=== PATIENT | male | born 1960 | race Caucasian/White ===

== ENCOUNTER 2023-12-29 07:11 | Day surgery (SDC) | payer BC, SELFPAY ==
[2023-12-29] VITALS (7 sets, daily range): BP systolic 125–151; BP diastolic 70–92; PULSE 70–84; RESP 12–20; TEMP 36.1–36.6; O2SAT 95–100; BMI 39.2
--- OUTSIDE RECORDS SUMMARY | 2023-12-29 07:14 | XMS_ITS | Encounter Summary ---
Author Organization [facility] Address [address] [place] [address] Care Team Providers Care Psychology Department Chair Name Role Phone Unavailable Primary Care Provider Unavailabl e Encounter Details Date Type Department Care Team (Late st Contact Info) Description 11/29/2023 Clinical Communication Department of Radiation Oncology in [place], [place] [address] [place] [phone] Des Dillard M.D. [address] [place] [address] Social History Tobacco Use Types Packs/Day Years Used Date Smoking Tobacco: Never Smokeless Tobacco: Former Chew Quit: 2013 Alcohol Use Standard Drinks/Week Comments Not Currently 21 (1 standard drink = 0.6 oz pu re alcohol) [facility] Utilities Answer Date Recorded In the past 12 months has [employer], [employer], oil, or water [employer] threatened to shut off services in your home? No 06/06/2023 Social Connection and Isolation Panel [NHANES] A nswer Date Recorded In a typical week, how many times do you talk on the phone with family, friends, or neighbors? Three times a week 11/01/2019 How often do you get togethe r with friends or relatives? Never 11/01/2019 How often do you attend chur ch or advent services? Never 11/01/2019 Do you belong to any clubs o r organizations such as sikh groups, unions, fraternal or athletic groups, or school groups? No 11/01/2019 How often do you attend meet ings of the clubs or organizations you belong to? Never 11/01/2019 Are you , , di vorced, , never , or living with a partner? 11/01/2019 AUDIT-C Answer Date Recorded Q1: How often do you have a drink containing alcohol? 4 or more times a week 11/01/2019 Q2: How many drinks containi ng alcohol do you have on a typical day when you are drinking? 3 or 4 0 Q3: How often do you have si x or more drinks on one occasion? Monthly 11/01/2019 Overall Financial Resource Strain (CARDIA) Answe r Date Recorded How hard is it for you to pa y for the very basics like food, housing, medical care, and heating? Not hard at all 11/01/2019 [facility] of Occupat ional Health - Occupational Stress Questionnaire Answer Date Recorded Do you feel stress - tense, restless, nervous, or anxious, or unable to sleep at night because your mind is troubled all the time - these days? To some extent 11/01/2019 Exercise Vital Sign Answer Date Recorde d On average, how many days pe r week do you engage in moderate to strenuous exercise (like a brisk walk)? 1 day 06/06/2023 On average, how many minutes do you engage in exercise at this level? 10 min 06/06/2023 Hunger Vital Sign Answer Date Recorded Within the past 12 months, y ou worried that your food would run out before you got the money to buy more. Never true 06/06/19 24 Within the past 12 months, t he food you bought just didn't last and you didn't have money to get more. Never true 06/06/2023 PRAPARE - Transportation Answer Date Re corded In the past 12 months, has l ack of transportation kept you from medical appointments or from getting medications? No 05/11 In the past 12 months, has l ack of transportation kept you from meetings, work, or from getting things needed for daily living? No 06/06/2023 Nutrition Answer Date Recorded On average, how many serving s of fruits and vegetables do you eat per day (serving size is equal to 1 cup or approximately the size of a tennis ball)? 0-2 06/06/2023 Dental Answer Date Recorded Dental: Regular Dentist Yes 06/06/19 Employment Answer Date Recorded Employment status Employed and actively working without restrictions 06/06/2023 Housing Stability Answer Date Recorded What is your living situation today? I have a [facility] place to live 06/06/2023 Education Answer Date Recorded What is the highest level of school you have completed or the highest degree you have received? 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 [address] [place] [address] documented as of this encounter Visit Diagnoses Not on filedocumented in this encounter
--- OUTSIDE RECORDS SUMMARY | 2023-12-29 07:14 | XMS_ITS | Encounter Summary ---
Author Organization [facility] Address [address] [place] [address] Care Team Providers Care Medical Device Engineer Name Role Phone Unavailable Primary Care Provider Unavailabl e Encounter Details Date Type Department Care Team (Late st Contact Info) Description 09/09/2023 Documentation Department of Radiation Oncology in [place], [place] [address] [place] [phone] Des Dillard M.D. [address] [place] [address] Social History Tobacco Use Types Packs/Day Years Used Date Smoking Tobacco: Never Smokeless Tobacco: Former Chew Quit: 2013 Alcohol Use Standard Drinks/Week Comments Not Currently 21 (1 standard drink = 0.6 oz pu re alcohol) [facility] Utilities Answer Date Recorded In the past 12 months has [employer], [employer], oil, or water [employer] threatened to shut off services in your [...] often do you attend chur ch or taoist services? Never 11/01/2019 Do you belong to any clubs o r organizations such as yazdanism groups, unions, fraternal or athletic groups, or [...] and heating? Not hard at all 11/01/2019 [facility] [place] of Occupat ional Health - Occupational Stress [...] your living situation today? I have a [facility] [place] place to live 06/06/2023 Education Answer Date Recorded What is the highest level of school you have completed or the highest degree you have received? 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 - 09/09/2023 11:59 PM CDT DIAGNOSIS: 1. Primary Malignant Neoplasm Of Prostate (HCC) Attending Physician: Des Dillard M.D. ([id number]) Treatment Intent: Curative Concomitant Therapy: Hormonal Therapy Single Plan Treatment Course: 1xProstBed Plan ID Fractions Dose / Fraction (cGy) Dose Treated (cGy) Dose Planned (cGy) First Treatment Last Treatment Elapsed Days [id number] 07/28/2023 08/31/2023 34 [id number] 215 [id number] 09/01/2023 09/09/2023 8 Treatment Site Summary [id number] 07/28/2023 09/09/2023 43 Course Summary 07/28/2023 09/09/2023 43 Radiation Modality: Photons CLINICAL SUMMARY Mr. Manny Ortiz completed radiation treatment as planned without interruptions. The course of treatment was tolerated well and with anticipated side effects. The patient experienced toxicities of grade 1 diarrhea, proctitis, urinary frequency and urinary tract pain during radiation treatment. TREATMENT RESPONSE: Response to treatment will be determined by post-treatment imaging and/or laboratory work. RECOMMENDED FOLLOW UP: Radiation Oncologist. Dr. Dillard Signed by: Sruthi Verde R.N., 09/23/2023 3:12 PM CDT [facility] [address] [place] [id number] documented in this encounter Plan of Treatment Upcoming Encounters Date Type Department Care Team (Latest Contact Info) Description 02/10/2024 10:30 AM CDT Clinical Communication Virtual Review in [place], [place] [address] [place] [address] 02/14/2024 2:30 PM CDT Appointment Department of Radiation Oncology in [address] [address] Des Dillard M.D. [address] [place] [phone] documented as of this encounter Visit Diagnoses Diagnosis Primary Malignant Neoplasm Of Prostate (HCC)- Primary documented in this encounter
--- OUTSIDE RECORDS SUMMARY | 2023-12-29 07:14 | XMS_ITS | Clinical Summary ---
Author Organization [facility] Address [place], [place] [address] Care Team Providers Care Centralized Traffic Control Operator Name Role Phone Atiya Lewis Primary Care Provider Pamela Murrell RN Unavailable [phone] Luciano Ni Unavailable [phone] Issa Goodwin MD Unavailable Unavailable Allergies No known active allergies Medications Medication Sig Dispensed Refills Start Date End Date Status Omeprazole 20 mg tabletIndications: Gastroesophageal reflux disease, esophagitis presence not specified Take 1 tablet by mouth once daily. 90 tablet 1 6 Active Graduated Compression StockingsIndicatio ns:Venous insufficiency 20-30 mm/Hg calf high or thigh high compression stockings - Venous insufficiency 8 Packet 2 Active Graduated Compression StockingsIndicatio ns:Bilateral leg edema For personal use. Length: calf Strength: 20-30 mmHg 2 Packet 2 Active valACYclovir (VALTREX) 500 mg tabletIndications: HSV-2 (herpes simplex virus 2) infection Take 1 Tablet (500 mg) by mouth two times daily. Takes as needed 30 Tablet 1 3 Active benzonatate (TESSALON) 200 mg capsuleIndications :Cough, unspecified type Take 1 Capsule (200 mg) by mouth 3 times daily if needed for Cough. 21 Capsule 3 Active tadalafiL (CIALIS;ADCIRCA) 20 mg tabletIndications: Impotence of organic origin TAKE 1/2 TABLET ONCE DAILY IF NEEDED FOR ERECTILE DYSFUNCTION. TAKE 30 MINUTES BEFORE SEXUAL ACTIVITY 24 Tablet 2 4 Active gabapentin (NEURONTIN) 300 mg capsuleIndications :Sacroiliac joint disease Take 1 Capsule (300 mg) by mouth at bedtime. 90 Capsule 4 Active losartan (COZAAR) 100 mg tabletIndications: Elevated BP without diagnosis of hypertension TAKE 1 TABLET ONCE DAILY 90 Tablet 4 Active amLODIPine (NORVASC) 10 mg tabletIndications: Essential hypertension Take 1 Tablet (10 mg) by mouth once daily. 90 Tablet 2 4 Active venlafaxine (EFFEXOR XR) 150 mg Extended-Release capsuleIndications :Adjustment disorder, unspecified type TAKE 2 CAPSULES ONCE DAILY WITH A MEAL 180 Capsule 1 4 Active CPAPIndications:OS A (obstructive sleep apnea) RESMED CPAP (E0601) machine for home use at pressure: 11 cmw, Choice of mask (A7030 or A7034) w/full face cushion (A7031) x1/mo, nasal cushion (A7032) x2/mo, or nasal pillows (A7033) x 2/mo; Length of Need: 99 months; Frequency of use: Daily 1 Each 4 Active CPAPIndications:OS A (obstructive sleep apnea) CPAP machine for home use at pressure 5-16 cmw, nasal mask x1/3month with nasal cushion x2/mo 1 Device 1 12/23/19 24 Discontinu ed(*Med complete/R egimen complete/L evel of care change) CPAPIndications:OS A (obstructive sleep apnea) CPAP machine for home use at pressure: 5-16 cmw , Heated humidifier x 1 q 5 yr, Humidifier chamber x 1 q 6 mo, Full face mask x1 q 3mos, with cushion x 1 q mo, Heated tubing x 1 q 3 mo, Headgear x 1 q 6 mo, Filters: Disposable x 2 q mo non-disposable filters x1 q 6mo, Length of Need: 99 months, Frequency of use: Daily 1 Device 1 12/23/19 24 Discontinu ed(*Med complete/R egimen complete/L evel of care change) Active Problems Problem Noted Date Diagnosed Date Alcoholism 12/06/2023 KORY 04/12/2018 AHI-52 with hypoxemia 04/25/2018 Unspecified adjustment reaction 06/21/2014 Adenomatous colon polyp 06/13/2014 Overview: Colonoscopy 06/2014 polyps repeat in 5 years Colonoscopy 02/2022 normal, repeat in 7-10 years Prostate cancer 12/25/2013 S/P prostatectomy 12/25/2013 Elevated BP 05/16/2008 Encounters Date Type Department Care Team Description 12/28/2023 Telephone [facility] [address] [place] [address] Isma Colón MD 12/28/2023 Medical Messaging [facility] [place] [address] Atiya Lewis PA My Back 12/23/2023 2:30 PM CDT Office Visit [facility] [place] [address] Alberto Solano MD Sleep Follow-up 12/23/2023 Travel 12/16/2023 2:15 PM CDT Ancillary Procedure [facility] [address] [facility] [address] [place] [address] 12/16/2023 Travel 12/06/2023 3:00 PM CDT Ancillary Procedure [facility] [place] [address] 12/06/2023 1:00 PM CDT Office Visit [facility] [place] [address] Atiya Lewis PA Pain (Pain all over, mostly in joints and hips into L leg. / worse in the past few months); Finger Pain/problem (Trigger finger in both ring fingers); Medication Management (Antidepressants - ) 12/06/2023 Travel 11/29/2023 Orders Only [facility] [place] [address] Atiya Lewis PA Outside Order (Ordered by Dr. Des Dillard) 11/07/2023 Refill [facility] [place] [address] Atiya Lewis PA Refill Request (Venlafaxine) 10/25/2023 Refill [facility] [address] [facility] [place] [address] Atiya Lewis PA Refill Request (Amlodipine) 10/12/2023 Refill [facility] [address] [facility] [place] [address] Atiya Lewis PA Refill Request (Losartan) from Last 3 Months Immunizations Name Administration Dates Next Due COVID-19 vaccine (Comecer-Bio NTech 30mcg/0.3mL) 12YO+ BIVALENT PF, MDV 02/13/2022 COVID-19 vaccine (Comecer-Bio NTech 30mcg/0.3mL) PF, MDV 04/21/2021,08/30/2020,08/13/2020 Hepatitis A (Adult) 01/19/1998,06/06/1997 Hepatitis B (Adult) 04/09/2010,09/07/2009,2009 Influenza A (H1N1), Inactiva fatou (Age >=3 Years) 05/18/2009 Influenza Virus, Unspecified 02/20/2007, 06/14/2006,07/11/2005,05/23 Influenza, IIV4 04/14/2023,,02/15/2021,01/17,04/02/2020,01/31/2019,02/15/2018 ,01/28/2017,02/12/2016,03/25/2015 Influenza, Whole Virus 10/14/2002,2000,04/14/1999,03/25,06/06/1997 MMR 09/08/1997 Meningococcal Vaccine (Menactra) 03/10/2008 Meningococcal Vaccine (Menomune) 08/22/1997 Oral Polio Vaccine 10/08/1984 Td (Age >=7 Years) 11/18/1996 Tdap 04/20/2016,05/21/2007 Typhoid (injectable) 09/25/2016,11/17/19 12,11/16/2009,08/12,07/11/2005 Typhoid Parenteral,Killed 08/19/2000,08/22/1997 Varicella Vaccine 09/07/2009,05/18/2009 Yellow Fever 03/10/2008,03/12/1997 Zoster (Shingrix-RZV, recombinant) 09/07/2022, Family History Medical History Relation Name Comments Cancer Father skin cancer Hyperlipidemia Father Hypertension Father Other Maternal Grandfather lived u ntil 90's Other Maternal Grandmother lived u ntil 90's Hypertension Mother Stroke Mother Hypertension Paternal Grandfather Hypertension Paternal Grandmother Other Paternal Grandmother lived u ntil 90's Relation Name Status Comments Father Maternal Grandfather Maternal Grandmother Mother Paternal Grandfather Paternal Grandmother Social History Tobacco Use Types Packs/Day Years Used Date Smoking Tobacco: Never Cigarettes Smokeless Tobacco: Former Chew Quit: 08/25/2011 Tobacco Cessation:Counseling Given: Yes Comments:1 tin weekly Alcohol Use Standard Drinks/Week Comments Yes 0 (1 standard drink = 0.6 oz pur e alcohol) occ PHQ-2 Answer Date Recorded PHQ-2 TOTAL SCORE 2 04/02/2020 Social Connections Answer Date Recorded Frequency of Communication with Friends and Fami ly 0 02/22/2023 Financial Resource Strain Answer Date R ecorded Difficulty of Paying Living Expenses 3 02/22/2023 Difficulty of Paying Living Expenses Not on file 02/22/2023 Food Insecurity Answer Date Recorded Worried About Running Out of Food in the Last Ye ar 1 02/22/2023 Transportation Needs Answer Date Record ed Lack of Transportation (Medical) 1 02/22/2023 Housing Stability Answer Date Recorded Unable to Pay for Housing in the Last Year 1 02/22/2023 Sex and Gender Information Value Date Recorded Sex Assigned at Not on file Gender Identity Not on file Sexual Orientation Not on file Obstetrics History Last Filed Vital Signs Vital Sign Reading Time Taken Comments Blood Pressure 121/82 12/23/2023 2:32 PM CDT Pulse 94 12/23/2023 2:32 PM CDT Temperature 37.1 ??C (98.7 ??F) 05/05/2023 2:14 PM CS T Respiratory Rate 17 04/08/2020 4:30 PM FIELD SERVICE ANALYST Oxygen Saturation 97% 12/23/2023 2:32 PM CDT Inhaled Oxygen Concentration - - Weight 123.6 kg (272 lb 6.4 oz) 12/23/2023 2:32 PM CDT Height 177 cm (5' 9.69) 12/23/2023 2:32 PM CDT Body Mass Index 39.43 12/23/2023 2:32 PM CDT Plan of Treatment Upcoming Encounters Date Type Department Care Team (Late st Contact Info) Description 01/17/2024 11:45 AM CDT Office Visit [facility] [address] [place] [address] [place], [facility] [address] [place] [address] 01/17/2024 3:30 PM CDT Ancillary Procedure [facility] [address] [place] [address] 01/21/2024 2:00 PM CDT Ancillary Procedure [facility] [address] [place] [address] 01/28/2024 11:20 AM CDT Office Visit [facility] at [facility] [address] [place] [address] Isma Colón MD [address] [place] [address] 03/29/2024 1:00 PM FIELD SERVICE ANALYST Office Visit [facility] [address] [place] [address] Alberto Solano MD [address] [place] [address] Health Maintenance Due Date Last Done Comments Pneumococcal series for age 6-64 (1 of 2 - PCV) 1966 HIV for age 15-65 10/31/1975 Hepatitis C screening for ag e 18-79 1978 Depression screening for age 12+ 04/03/2021 04/03/2020, 04/02/2020, 02/02/2019, Additional history exists COVID-19 vaccine series (2022- season) 2023 03/15/2023, 02/13/2022, 10/10/2021, Additional history exists Influenza for age 50-64 01/09/2024 04/14/20 23, 02/13/2022, 02/15/2021, Additional history exists BMI (ht and wt on same day) for age 18+ 12/22/2024 12/23/2023, 09/07/2022, 03/12/2021, Additional history exists Tetanus booster 04/20/2026 04/20/2016, 05/10, 11/18/1996 Colonoscopy through age 75 02/13/202702/13, 02/13/2022, 02/13/2022, Additional history exists Lipids for age 45-75 09/03/2027 09/02/2022, 03/11/2021, 04/02/2020, Additional history exists Tdap Completed 04/20/2016, 05/21/2007 Zoster (shingles) series for age 50+ Completed 09/07/2022, 03/15/2019 Procedures Procedure Name Priority Date/Time Associated Diagnosis Comments MR SPINE LUMBAR WO Routine 12/16/2023 2: 40 PM CDT Left leg pain XR SPINE LUMBAR 2 VIEWS Routine 12/06/2023 2:58 PM CDT Left leg pain LC LIPID PANEL AND CHOL/HDL RATIO Routine 09/02/2022 3:55 PM CDT Elevated BP without diagnosis of hypertension COLONOSCOPY SCREENING Routine 02/13/2022 10:43 AM CDT History of colon polyps from Last 3 Months or Most Recently Relevant to Health Maintenance Results * MR SPINE LUMBAR WO (12/16/2023 2:40 PM CDT) Anatomical Region Laterality Modality Spine, LUMBAR SPINE Magnetic Res onance 12/16/2023 3:01 PM CDT Narrative 12/16/2023 3:01 PM CDT For Patients: ??As a result of the Century Cures Act, medical imaging exams and procedure reports are released immediately into your electronic medical record. ??You may view this report before your referring provider. ??If you have questions, please contact your health care provider. Indication: Low back and left leg pain. Technique: Multisequence multiplanar MRI of the lumbar spine without the use of intravenous contrast. Comparison: Lumbar spine radiographs dated 12/06/2023. Findings: Normal vertebral alignment and stature. Diffuse T1 marrow hyperintensity within the lower lumbar spine and sacrum suggestive of posttreatment changes. No T1 hypointense infiltrative lesion. Multilevel disc desiccation and height loss most pronounced at L2-L3. Mild edema about a Schmorl`s node at the L3 superior endplate. The conus medullaris terminates normally at the upper L1 level. Epidural lipomatosis contributes to spinal canal stenosis at multiple levels. T12-L1 and L1-L2: No significant spinal canal or neural foraminal stenosis. L2-L3: Symmetric disc bulge. Mild facet joint hypertrophy. Mild spinal canal stenosis. No significant neural foraminal narrowing. L3-L4: Symmetric disc bulge. Mild facet joint arthrosis. Mild-moderate spinal canal stenosis. Mild right and mild-moderate left neural foraminal narrowing. L4-L5: Symmetric disc bulge. Moderate facet joint hypertrophy. Moderate spinal canal stenosis and moderate bilateral neural foraminal narrowing. L5-S1: Symmetric disc bulge. Mild facet joint hypertrophy. No significant spinal canal or neural foraminal stenosis. Impression: 1. Diffuse T1 marrow hyperintensity within the lower lumbar spine and sacrum suggestive of posttreatment changes. 2. Mild edema about a Schmorl`s node at the L3 superior endplate. 3. Epidural lipomatosis contributes to spinal canal stenosis at multiple levels. 4. At L2-L3, mild spinal canal stenosis. 5. At L3-L4, mild-moderate spinal canal stenosis and left neural foraminal narrowing. 6. At L4-L5, moderate spinal canal stenosis and bilateral neural foraminal narrowing. Dictated by Danielito Hickman MD @ 12/16/2023 3:01:05 PM (Electronically Signed) Procedure Note Jose G Hickman MD - 12/16/2023 For Patients: As a result of the Cures Act, medical imagingexams and procedure reports are released immediately into your electronicmedical record. You may view this report before your referring provider.If you have questions, please contact your health care provider. Indication: Low back and left leg pain. Technique: Multisequence multiplanar MRI of the lumbar spine without the use ofintravenous contrast. Comparison: Lumbar spine radiographs dated 12/06/2023. Findings: Normal vertebral alignment and stature. Diffuse T1 marrow hyperintensitywithin the lower lumbar spine and sacrum suggestive of posttreatmentchanges. No T1 hypointense infiltrative lesion. Multilevel discdesiccation and height loss most pronounced at L2-L3. Mild edema about aSchmorl`s node at the L3 superior endplate. The conus medullaristerminates normally at the upper L1 level. Epidural lipomatosiscontributes to spinal canal stenosis at multiple levels. T12-L1 and L1-L2: No significant spinal canal or neural foraminalstenosis. L2-L3: Symmetric disc bulge. Mild facet joint hypertrophy. Mild spinalcanal stenosis. No significant neural foraminal narrowing. L3-L4: Symmetric disc bulge. Mild facet joint arthrosis. Mild-moderatespinal canal stenosis. Mild right and mild-moderate left neural foraminalnarrowing. L4-L5: Symmetric disc bulge. Moderate facet joint hypertrophy. Moderatespinal canal stenosis and moderate bilateral neural foraminal narrowing. L5-S1: Symmetric disc bulge. Mild facet joint hypertrophy. No significantspinal canal or neural foraminal stenosis. Impression: 1. Diffuse T1 marrow hyperintensity within the lower lumbar spine andsacrum suggestive of posttreatment changes. 2. Mild edema about a Schmorl`s node at the L3 superior endplate. 3. Epidural lipomatosis contributes to spinal canal stenosis at multiplelevels. 4. At L2-L3, mild spinal canal stenosis. 5. At L3-L4, mild-moderate spinal canal stenosis and left neural foraminalnarrowing. 6. At L4-L5, moderate spinal canal stenosis and bilateral neural foraminalnarrowing. Dictated by Danielito Hickman MD @ 12/16/2023 3:01:05 PM (Electronically Signed) Atiya JARQUIN MR * XR SPINE LUMBAR 2 VIEWS (12/06/2023 2:58 PM CDT) Anatomical Region Laterality Modality LUMBAR SPINE Computed Radiogr aphy 12/07/2023 3:08 PM CDT Impressions 12/07/2023 3:08 PM CDT Mild multilevel degenerative disc disease. Dictated by Pradeep Rodarte MD @ 12/07/2023 3:08:43 PM (Electronically Signed) Narrative 12/07/2023 3:08 PM CDT For Patients: ??As a result of the Cures Act, medical imaging exams and procedure reports are released immediately into your electronic medical record. ??You may view this report before your referring provider. ??If you have questions, please contact your health care provider. INDICATION: Left leg pain TECHNIQUE: 2-view lumbar spine. COMPARISON: none FINDINGS: Discogenic spurring L2-3 and L3-4. Mild spurring L4-5 and mild disc space narrowing L2-3. No fracture. SI joints maintained. No spondylolisthesis. Procedure Note Pradeep Rodarte MD - 12/07/2023 For Patients: As a result of the Cures Act, medical imagingexams and procedure reports are released immediately into your electronicmedical record. You may view this report before your referring provider.If you have questions, please contact your health care provider. INDICATION: Left leg pain TECHNIQUE: 2-view lumbar spine. COMPARISON: none FINDINGS: Discogenic spurring L2-3 and L3-4. Mild spurring L4-5 and mild disc spacenarrowing L2-3. No fracture. SI joints maintained. No spondylolisthesis. IMPRESSION: Mild multilevel degenerative disc disease. Dictated by Pradeep Rodarte MD @ 12/07/2023 3:08:43 PM (Electronically Signed) Atiya JARQUIN [facility] * (ABNORMAL) LC LIPID PANEL AND CHOL/HDL RATIO (09/02/2022 3:55 PM CDT) Cholesterol, Total 210(H) 100 - 199 mg/dL 09/05/2022 8:36 AM [facility] Triglycerides 150(H) 0 - 149 mg/dL 09/05/2022 8:[address] [facility] ([facility]) HDL Cholesterol 55 >39 mg/dL 8:[address] [facility] ([facility]) VLDL Cholesterol Philipp 27 5 - 40 mg/dL 09/05/2022 8:[address] [facility] ([facility]) LDL Chol Calc ([facility]) 128(H) 0 - 99 mg/dL 09/05/2022 8:[address] [facility] ([facility]) T. Chol/HDL Ratio 3.8 0.0 - 5.0 ratio 09/05/2022 8:[address] [facility] ([facility]) Comment: ?T. Chol/HDL Ratio ?Men ??Women ?1/2 Avg.Risk ??3.4 ?3.3 ?Avg.Risk ??5.0 ?4.4 ? 2X Avg.Risk ??9.6 ?7.1 ? 3X Avg.Risk 23.4 ?? 11.0 Blood BLOOD SPECIMEN / Unknown Venipuncture / Unknown 09/02/2022 3:55 PM CDT 09/02/2022 3:56 PM CDT Narrative [facility] ([facility]) - 09/05/2022 8:36 AM CDT Performed at: ??01 - [facility] [facility], [place], [place] ??[id number] Indirect Fire Infantryman: Manoj Laura MD, Phone: ??[phone] Atiya JARQUIN S[facility] OUTS [facility] ([facility]) [address] [place] [address], [place] * COLONOSCOPY (02/13/2022 11:30 AM CDT) 02/13/2022 11:3 0 AM CDT Narrative Transcriptions Benjy Ford MD - 02/13/2022 12:12 PM CDT Patient Name: Manny Ortiz Procedure Date: 02/13/2022 Gender: Male Date of : 1960 Admit Type: Outpatient Procedure: Colonoscopy Proceduralist: Benjy Ford MD , Linda Hopper (Nurse), Quynh Jenkins (Nurse) Referring MD: Atiya Lewis Indications/Pre-Op Diagnosis: High risk colon cancer surveillance:Personal history of multiple (3 or more) adenomas,Last colonoscopy: June 2014 Medications: Fentanyl 100 micrograms IV, Midazolam 4 mgIV, The level of sedation administered wasmoderate Procedure Description: The patient had risks, benefits and alternatives explained to andgave informed consent. The patient had a stable cardiopulmonary status and judged an adequate candidate for conscious sedation. The endoscope -[id number] was passed through the anus andadvanced to the cecum, identified by appendiceal orifice and ileocecal valve.The colonoscopy was performed without difficulty. The patient toleratedthe procedure well. The quality of the bowel preparation was good. The ileocecal valve, appendiceal orifice, and rectum were photographed. Complications: No immediate complications. Estimated Blood Loss & Specimen: Estimated blood loss: none. Specimen collected - None Findings: The perianal and digital rectal examinations were normal. The entire examined colon appeared normal on direct and retroflexion views. Impressions/Post-Op Diagnosis: - The entire examined colon is normal on direct and retroflexionviews. - No specimens collected. Recommendation: - Patient has a contact number available for emergencies. The signsand symptoms of potential delayed complications were discussed with the patient. Return to normal activities tomorrow. Written discharge instructions were provided to the patient. - Resume previous diet. - Continue present medications. - Repeat colonoscopy in 7-10 years for surveillance. Moderate Sedation: A time out was performed before the procedure. Moderate (conscious) sedation was administered by the endoscopy nurse and supervised bythe endoscopist. The following parameters were monitored: oxygensaturation, heart rate, blood pressure, EKG, CO2, respiratory rate, adequacy of pulmonary ventilation and reponse to care. Please refer to the patient's medical record flowsheets and nursing notes for moderate sedation details. Total physician intraservice time was 14 minutes. Benjy Ford MD 02/13/2022 12:12:06 PM This report has been signed electronically. Note Initiated On: 02/13/2022 11:30 AM Procedure Code(s): --- Professional --- 72024, Colonoscopy, flexible; diagnostic, including collection of specimen(s) bybrushing or washing, when performed (separateprocedure) Diagnosis Code(s): --- Professional --- Z86.010, Personal history of colonicpolyps CPT copyright 2020 [employer]. All rights reserved. The codes documented in this report are preliminary and upon remote medical coder reviewmay be revised to meet current compliance requirements. Scope In: 11:54:28 AM Scope Withdrawal Time 0 hours 8 minutes 14 seconds Scope Out: 12:06:37 PM Benjy Ford MD PROCEDURE ORD from Last 3 Months or Most Recently Relevant to Health Maintenance Advance Directives * Full Code (Latest Code Status on File) Date Activated Date Inactivated Comments 04/08/2020 12:39 PM 04/08/2020 7:00 PM Question Answer Comments Code Status Discussion: Discussed * Full Code Date Activated Date Inactivated Comments 12/18/2013 1:53 PM 12/20/2013 3:24 PM Care Teams Centralized Traffic Control Operator Relationship Specialty Start Date End Date Atiya Lewis PA [address] [place] [id number] PCP - General Family Practice 06/20/13 Pamela Murrell, RN [address] [place] [id number] Registered Nurse 12/08/13 Luciano Ni MBBS [address] [place] [id number] Surgery - Urology 12/08/13 Issa Goodwin MD [address] [place] [id number] Urology Surgery - Urology 03/15/19
--- OUTSIDE RECORDS SUMMARY | 2023-12-29 07:14 | XMS_ITS | Clinical Summary ---
Author Organization [facility] Address [address] [place] [address] Care Team Providers Care Clothing Presser Name Role Phone Unavailable Primary Care Provider Unavailabl e Source Comments Patient records contain information from all sites at [facility]. For routine questions regarding patient records, call [phone] during business hours, M-F 8:00 AM - 5:00 PM Central Time. Record requests for emergency care only can be directed to [phone] at any time.[facility] Allergies No known active allergies Medications Medication Sig Dispensed Refills Start Date End Date Status amLODIPine (NORVASC) 10 mg tablet Take 1 tablet by mouth every morning. 04/08/2017 Active losartan (COZAAR) 100 mg tablet Take 1 tablet by mouth every morning. 04/08/2017 Active valACYclovir (VALTREX) 500 mg tablet Take 500 mg by mouth. 04/14/2023 Active tadalafiL (CIALIS) 20 mg tablet TAKE 1/2 TABLET ONCE DAILY IF NEEDED FOR ERECTILE DYSFUNCTION TAKE 30 MINUTESBEFORE SEXUAL ACTIVITY 09/07/2022 Active venlafaxine XR (EFFEXOR-XR) 150 mg 24 hr capsule Take 300 mg by mouth. 09/07/2022 Active sildenafiL (VIAGRA) 100 mg tablet One tab 1 hour before intercourse on an empty stomach. Max one tab per day. OK to take with 5 mg daily tadalafil. 30 tablet 11 07/02/2023 Active mometasone (ELOCON) 0.1 % cream Apply 1 Application topically daily. Apply to lower anterior abdominal skin twice daily for 7-10 days. 45 g 1 09/01/2023 Active Active Problems Problem Noted Date Diagnosed Date Hyperglycemia 10/04/2018 Rising Prostate Specific Ant igen Following Treatment For Malignant Cancer Of Prostate 09/08/2018 Overview (09/08/2018): Added automatically from request for surgery [id number] Primary Malignant Neoplasm Of Prostate 7 Cancer Staging:Pathologic stage from 12/18/2013:Stage IIB(T2c, N0, cM0, PSA: 10 to 19, [place] 7) - Unsigned Apnea Sleep Obstructive Overview (10/04/2018): Compliant with CPAP use Hypertension NOS Thromboembolism NOS Overview (10/04/2018): Left, superficial Gastroesophageal Reflux Disease NOS Resolved Problems Problem Noted Date Diagnosed Date Resolved Date Alcohol Mild Use Disorder (A buse) Uncomplicated 10/04/2018 10/04/2018 Encounters Date Type Department Care Team Description 12/13/2023 Clinical Communication Department of Radiation Oncology in [address] [address] Des Dillard M.D. 11/29/2023 Clinical Communication Department of Radiation Oncology in [address] [address] Des Dillard M.D. from Last 3 Months Family History Medical History Relation Name Comments Cancer Neg Hx Social History Tobacco Use Types Packs/Day Years Used Date Smoking Tobacco: Never Smokeless Tobacco: Former Chew Quit: 2013 Tobacco Cessation:Counseling Given: Not Answered Alcohol Use Standard Drinks/Week Comments Not Currently 21 (1 standard drink = 0.6 oz pu re alcohol) [facility] Utilities Answer Date Recorded In the past 12 months has [employer], gas, oil, or water [employer] threatened to shut off services in your home? No 06/06/2023 Social Connection and Isolation Panel [NHANES] A nswer Date Recorded In a typical week, how many times do you talk on the phone with family, friends, or neighbors? Three times a week 11/01/2019 How often do you get togethe r with friends or relatives? Never 11/01/2019 How often do you attend [facility] or baptist services? Never 11/01/2019 Do you belong to any clubs o r organizations such as mormonism groups, unions, fraternal or athletic groups, or [...] and heating? Not hard at all 11/01/2019 [facility] of Occupat ional Health - Occupational Stress [...] your living situation today? I have a [facility] place to live 06/06/2023 Education Answer Date Recorded What is the highest level of school you have completed or the highest degree you have received? Bachelor's degree (e.g., BA, AB, BS) 11/01/2019 Sex and Gender Information Value Date Recorded Sex Assigned at Male 06/06/2023 10:42 PM GOVERNMENT CONTRACTS MANAGER Gender Identity Male 11/01/2019 10:26 PM CDT Sexual Orientation Straight 11/01/2019 10 :26 PM CDT Last Filed Vital Signs Vital Sign Reading Time Taken Comments Blood Pressure 120/80 08/18/2023 2:17 PM CDT Pulse 91 08/18/2023 2:17 PM CDT Temperature 35.7 ??C (96.3 ??F) 09/09/2023 1:56 PM CD T Respiratory Rate 19 10/05/2018 1:10 PM CDT Oxygen Saturation 96% 06/15/2023 3:02 PM GOVERNMENT CONTRACTS MANAGER Inhaled Oxygen Concentration - - Weight 125 kg (275 lb 9.2 oz) 09/09/2023 1:56 PM CDT Height 178.2 cm (5' 10.16) 10/04/2018 2:08 PM C DT Body Mass Index 39.36 10/04/2018 2:08 PM CDT Plan of Treatment Upcoming Encounters Date Type Department Care Team (Latest Contact Info) Description 02/10/2024 10:30 AM CDT Clinical Communication Virtual Review in [place], [place] [address] [place] [address] 02/14/2024 2:30 PM CDT Appointment Department of Radiation Oncology in [place], [place] [address] [place] [phone] Des Dillard M.D. [address] [place] [address] Health Maintenance Due Date Last Done Comments CT Colonography 1960 Cologuard 1960 FIT 1960 HIV Screening 1960 Hepatitis C Screening 1960 Office Visit for Blood Pressure Check / Re-check 1960 Pneumococcal vaccine (0-64 years) (1 of 2 - PCV) 1966 Depression Screening (Annual PHQ-2) 05/10/2023 Influenza Vaccine (#1) 2024 , 02/13/2022, 02/15/2021, Additional history exists Creatinine Level (Kidney Function Test) 04/14/2024 04/14/2023, 09/02/2022, 10/29/2021, Additional history exists Fasting Glucose for Diabetes Screening 04/14/2024 04/14/2023, 09/02/2022, 03/11/2021, Additional history exists Potassium Level 04/14/2024 04/14/2023, 08/09, 03/11/2021, Additional history exists Sodium Level 04/14/2024 04/14/2023, 08/09, 03/11/2021, Additional history exists Lipid (Cholesterol) Screening 06/30/2024 06/30/2023, 09/02/2022, 03/11/2021, Additional history exists DTaP,Tdap,and Td Vaccines (3 - Td or Tdap) 04/20/2026 04/20/2016, 05/21/2007 Colonoscopy 02/14/2032 02/13/2022 Colorectal Cancer Screening 02/14/2032 Zoster Vaccines Completed 09/09/2022, 03/15/2019 COVID-19 Vaccine Completed 03/15/2023, 11/2021, 10/10/2021, Additional history exists HPV Vaccines Aged Out No longer eligi ble based on patient's age to complete this topic Medical Devices Implanted Type Area Duty Manager Device Identifier Shelf Expiration Date Model / Serial / Lot Knee Implant Knee Implant Bilateral : Knee Procedures Procedure Name Priority Date/Time Associated Diagnosis Comments LIPID PANEL, S Routine 06/30/2023 9:40 AM GOVERNMENT CONTRACTS MANAGER Primary Malignant Neoplasm Of Prostate (HCC) Rising Prostate Specific Antigen Following Treatment For Malignant Cancer Of Prostate HEMOGLOBIN A1C, B Routine 10/04/2018 3:0 9 PM CDT Elevated Prostate-Specific Antigen Preanesthetic Medical Exam Impaired Fasting Glucose POTASSIUM, S/P Routine 10/04/2018 3:08 PM CDT Elevated Prostate-Specific Antigen Preanesthetic Medical Exam Impaired Fasting Glucose CREATININE WITH EGFR, S/P Routine 10/04/2018 3:08 PM CDT Elevated Prostate-Specific Antigen Preanesthetic Medical Exam Impaired Fasting Glucose from Last 3 Months or Most Recently Relevant to Health Maintenance Results * (ABNORMAL) Lipid Panel (06/30/2023 9:40 AM GOVERNMENT CONTRACTS MANAGER) Triglycerides 201(H) mg/dL 06/30/2023 10:30 AM GOVERNMENT CONTRACTS MANAGER DTL Comment: ----REFERENCE VALUE---- Normal: <150 mg/dL Borderline High: 150-199 mg/dL High: 200-499 mg/dL Very High: > or =500 mg/dL Cholesterol, Total 208(H) mg/dL 2023 10:30 AM GOVERNMENT CONTRACTS MANAGER DTL Comment: ----REFERENCE VALUE---- Desirable: < 200 mg/dL Borderline High: 200 - 239 mg/dL High: > or = 240 mg/dL Cholesterol, LDL, Calculated 126 mg/dL 06/30/2023 10:30 AM GOVERNMENT CONTRACTS MANAGER DTL Comment: ----REFERENCE VALUE---- Desirable: <100 mg/dL Above Desirable: 100-129 mg/dL Borderline High: 130-159 mg/dL High: 160-189 mg/dL Very High: >=190 mg/dL ----ADDITIONAL INFORMATION---- LDL cholesterol calculated using the León/NIH equation. Cholesterol, HDL, S 46 >=40 mg/dL 06/30/2023 10:30 AM GOVERNMENT CONTRACTS MANAGER DTL Cholesterol, Non-HDL, Calculated 162(H) mg/dL 06/30/2023 10:30 AM GOVERNMENT CONTRACTS MANAGER DTL Comment: ----REFERENCE VALUE---- Desirable: <130 mg/dL Above Desirable: 130-159 mg/dL Borderline High: 160-189 mg/dL High: 190-219 mg/dL Very High: > or =220 mg/dL Fasting (8 HR or more) Yes 06/30/2023 10:05 AM GOVERNMENT CONTRACTS MANAGER DTL Blood (Blood, Venous) 06/30/2023 9:40 AM GOVERNMENT CONTRACTS MANAGER 06/30/2023 10:05 AM GOVERNMENT CONTRACTS MANAGER Issa Vazquez M.D. LAB BLOOD ADD-ON [facility] [address] [facility] [address] [place] [address] * Hemoglobin A1c (10/04/2018 3:09 PM CDT) Hemoglobin A1c, B 5.4 4.0 - 5.6 % 10/04/2018 3:35 PM CDT [facility] Blood (Blood, Venous) 10/04/2018 3:09 PM CDT 10/04/2018 3:17 PM CDT Honorio Luna M.D. LAB BLOOD ADD-ON Performing Organization Address City/[facility]/ZIP Co de Phone Number [facility] [address] * Potassium (10/04/2018 3:08 PM CDT) Potassium, S 4.6 3.6 - 5.2 mmol/L 10/04/2018 4:18 PM CDT [facility] Blood (Blood, Venous) 10/04/2018 3:08 PM CDT 10/04/2018 3:16 PM CDT Honorio Luna M.D. LAB BLOOD ADD-ON [facility] [address] * Creatinine with Estimated GFR (10/04/2018 3:08 PM CDT) Creatinine 0.76 0.74 - 1.35 mg/dL 10/04/2018 4:18 PM CDT [facility] eGFR-Non Black/ >90 >=60 mL/min/BSA 10/04/2018 4:18 PM CDT [facility] Comment: ----ADDITIONAL INFORMATION---- Estimated GFR calculated using the 2009 CKD_EPI creatinine equation. eGFR-Black/Afri can Ghanaian >90 >=60 mL/min/BSA 10/04/2018 4:18 PM CDT [facility] Comment: ----ADDITIONAL INFORMATION---- Estimated GFR calculated using the 2009 CKD_EPI creatinine equation. Blood (Blood, Venous) 10/04/2018 3:08 PM CDT 10/04/2018 3:16 PM CDT Honorio Luna M.D. LAB BLOOD ADD-ON [facility] [address] from Last 3 Months or Most Recently Relevant to Health Maintenance Advance Directives For more information, please contact: [phone] * Full Code (Latest Code Status on File) Date Activated Date Inactivated Comments 10/05/2018 10:14 AM 10/05/2018 3:34 PM Question Answer Comments Full Code: Discussed
--- OUTSIDE RECORDS SUMMARY | 2023-12-29 07:14 | XMS_ITS ---
Author Organization [facility] Address [address] [place] [address] Care Team Providers Care Turn Out Worker Name Role Phone Unavailable Unavailable Unavailable Surgery Details Not on file Complications Check Surgery Details section. Procedure Estimated Blood Loss Check Surgery Details section. Procedure Findings Check Surgery Details section. Procedure Specimens Taken Check Surgery Details section.
--- OUTSIDE RECORDS SUMMARY | 2023-12-29 07:14 | XMS_ITS | Referral Summary ---
Author Organization [facility] Address [address] [place] [address] Care Team Providers Care Torsion Spring Coiling Machine Setter Name Role Phone Unavailable Primary Care Provider Unavailabl e Source Comments Patient records contain information from all sites at [facility]. For routine questions regarding patient records, call [phone] during business hours, M-F 8:00 AM - 5:00 PM Central Time. Record requests for emergency care only can be directed to [phone] at any time.[facility] Encounters Date Type Department Care Team Description 12/13/2023 Clinical Communication Department of Radiation Oncology in [address] [address] Des Dillard M.D. 11/29/2023 Clinical Communication Department of Radiation Oncology in [address] [address] Des Dillard M.D. from Last 3 Months Allergies No known active allergies Medications Medication [...] (09/08/2018): Added automatically from request for surgery [id number] Primary Malignant Neoplasm Of Prostate 7 Cancer Staging:Pathologic stage from 12/18/2013:Stage IIB(T2c, N0, cM0, PSA: 10 to 19, [place] 7) - Unsigned Apnea Sleep Obstructive Overview (10/04/2018): Compliant with CPAP use Hypertension NOS Thromboembolism NOS Overview (10/04/2018): Left, superficial Gastroesophageal Reflux Disease NOS Resolved Problems Problem Noted Date Diagnosed Date Resolved Date Alcohol Mild Use Disorder (A buse) Uncomplicated 10/04/2018 10/04/2018 Social History Tobacco Use Types Packs/Day Years Used Date Smoking Tobacco: Never Smokeless Tobacco: Former Chew Quit: 2013 Tobacco Cessation:Counseling Given: Not Answered Alcohol Use Standard Drinks/Week Comments Not Currently 21 (1 standard drink = 0.6 oz pu re alcohol) [facility] Utilities Answer Date Recorded In the past 12 months has [employer], [employer], oil, or water [employer] threatened to shut off services in your home? No 06/06/2023 Social Connection and Isolation Panel [NHANES] A nswer Date Recorded In a typical week, how many times do you talk on the phone with family, friends, or neighbors? Three times a week 11/01/2019 How often do you get togethe r with friends or relatives? Never 11/01/2019 How often do you attend [facility] or anabaptism services? Never 11/01/2019 Do you belong to any clubs o r organizations such as anglican groups, unions, fraternal or athletic groups, or [...] and heating? Not hard at all 11/01/2019 [facility] of Occupat ional [facility] - Occupational Stress Questionnaire Answer Date Recorded [...] your living situation today? I have a [facility] place to live 06/06/2023 Education Answer Date Recorded What is the highest level of school you have completed or the highest degree you have received? Bachelor's degree (e.g., BA, AB, BS) 11/01/2019 Sex and Gender Information Value Date Recorded Sex Assigned at Male 06/06/2023 10:42 PM DIRECTOR OF DIGITAL TECHNOLOGY Gender Identity Male 11/01/2019 10:26 PM CDT Sexual Orientation Straight 11/01/2019 10 :26 PM CDT Last Filed Vital Signs Vital Sign Reading Time Taken Comments Blood Pressure 120/80 08/18/2023 2:17 PM CDT Pulse 91 08/18/2023 2:17 PM CDT Temperature 35.7 ??C (96.3 ??F) 09/09/2023 1:56 PM CD T Respiratory Rate 19 10/05/2018 1:10 PM CDT Oxygen Saturation 96% 06/15/2023 3:02 PM DIRECTOR OF DIGITAL TECHNOLOGY Inhaled Oxygen Concentration - - Weight 125 kg (275 lb 9.2 oz) 09/09/2023 1:56 PM CDT Height 178.2 cm (5' 10.16) 10/04/2018 2:08 PM C DT Body Mass Index 39.36 10/04/2018 2:08 PM CDT Plan of Treatment Upcoming Encounters Date Type Department Care Team (Latest Contact Info) Description 02/10/2024 10:30 AM CDT Clinical Communication Virtual Review in [place], [place] [address] [place] [address] 02/14/2024 2:30 PM CDT Appointment Department of Radiation Oncology in [place], [place] [address] [place] [phone] Des Dillard M.D. [address] [place] [address] Medical Devices Implanted Type Area Supervisor Coke Handling Device Identifier Shelf Expiration Date Model / Serial / Lot Knee Implant Knee Implant Bilateral : Knee Procedures Procedure Name Priority Date/Time Associated Diagnosis Comments LIPID PANEL, S Routine 06/30/2023 9:40 AM DIRECTOR OF DIGITAL TECHNOLOGY Primary Malignant Neoplasm Of Prostate (HCC) Rising [...] * (ABNORMAL) Lipid Panel (06/30/2023 9:40 AM DIRECTOR OF DIGITAL TECHNOLOGY) Triglycerides 201(H) mg/dL 06/30/2023 10:30 AM DIRECTOR OF DIGITAL TECHNOLOGY DTL Comment: ----REFERENCE VALUE---- Normal: <150 mg/dL Borderline High: 150-199 mg/dL High: 200-499 mg/dL Very High: > or =500 mg/dL Cholesterol, Total 208(H) mg/dL 2023 10:30 AM DIRECTOR OF DIGITAL TECHNOLOGY DTL Comment: ----REFERENCE VALUE---- Desirable: < 200 mg/dL Borderline High: 200 - 239 mg/dL High: > or = 240 mg/dL Cholesterol, LDL, Calculated 126 mg/dL 06/30/2023 10:30 AM DIRECTOR OF DIGITAL TECHNOLOGY DTL Comment: ----REFERENCE VALUE---- Desirable: <100 mg/dL Above Desirable: 100-129 mg/dL Borderline High: 130-159 mg/dL High: 160-189 mg/dL Very High: >=190 mg/dL ----ADDITIONAL INFORMATION---- LDL cholesterol calculated using the León/NIH equation. Cholesterol, HDL, S 46 >=40 mg/dL 06/30/2023 10:30 AM DIRECTOR OF DIGITAL TECHNOLOGY DTL Cholesterol, Non-HDL, Calculated 162(H) mg/dL 06/30/2023 10:30 AM DIRECTOR OF DIGITAL TECHNOLOGY DTL Comment: ----REFERENCE VALUE---- Desirable: <130 mg/dL Above Desirable: 130-159 mg/dL Borderline High: 160-189 mg/dL High: 190-219 mg/dL Very High: > or =220 mg/dL Fasting (8 HR or more) Yes 06/30/2023 10:05 AM DIRECTOR OF DIGITAL TECHNOLOGY DTL Blood (Blood, Venous) 06/30/2023 9:40 AM DIRECTOR OF DIGITAL TECHNOLOGY 06/30/2023 10:05 AM DIRECTOR OF DIGITAL TECHNOLOGY Issa Vazquez M.D. LAB BLOOD ADD-ON Performing Organization Address City/[facility]/ZIP Co de Phone Number [facility] [address] DTL [facility] [address] [place] [address] * Hemoglobin A1c (10/04/2018 3:09 PM CDT) Hemoglobin A1c, B 5.4 4.0 - 5.6 % 10/04/2018 3:35 PM CDT [facility] Blood (Blood, Venous) 10/04/2018 3:09 PM CDT 10/04/2018 3:17 PM CDT Honorio Luna M.D. LAB BLOOD ADD-ON Performing Organization Address City/[facility]/ZIP Co de Phone Number [facility] [address] * Potassium (10/04/2018 3:08 PM CDT) Potassium, S 4.6 3.6 - 5.2 mmol/L 10/04/2018 4:18 PM CDT [facility] Blood (Blood, Venous) 10/04/2018 3:08 PM CDT 10/04/2018 3:16 PM CDT Honorio M Bierle M.D. LAB BLOOD ADD-ON [facility] [address] [place], [place] [address] * Creatinine with Estimated GFR (10/04/2018 3:08 PM CDT) Creatinine 0.76 0.74 - 1.35 mg/dL 10/04/2018 4:18 PM CDT [facility] eGFR-Non Black/ >90 >=60 mL/min/BSA 10/04/2018 4:18 PM CDT [facility] Comment: ----ADDITIONAL INFORMATION---- Estimated GFR calculated using the 2009 CKD_EPI creatinine equation. eGFR-Black/Afri can Burmese >90 >=60 mL/min/BSA 10/04/2018 4:18 PM CDT [facility] Comment: ----ADDITIONAL INFORMATION---- Estimated GFR calculated using the 2009 CKD_EPI creatinine equation. Blood (Blood, Venous) 10/04/2018 3:08 PM CDT 10/04/2018 3:16 PM CDT Honorio Luna M.D. LAB BLOOD ADD-ON [facility] [address] [place], [place] [address] from Last 3 Months or Most Recently Relevant to Health Maintenance Advance Directives For more information, please contact: [phone] * Full Code (Latest Code Status on File) Date Activated Date Inactivated Comments 10/05/2018 10:14 AM 10/05/2018 3:34 PM Question Answer Comments Full Code: Discussed
--- OUTSIDE RECORDS SUMMARY | 2023-12-29 07:14 | XMS_ITS ---
Author Organization [facility] Address [address] [place] [address] Care Team Providers Care District Branch Manager Name Role Phone Unavailable Primary Care Provider Unavailabl e Active Problems Problem Noted Date Diagnosed Date Hyperglycemia 10/04/2018 Rising Prostate Specific Ant igen Following Treatment For Malignant Cancer Of Prostate 09/08/2018 Overview (09/08/2018): Added automatically from request for surgery [id number] Primary Malignant Neoplasm Of Prostate 7 Cancer Staging:Pathologic stage from 12/18/2013:Stage IIB(T2c, N0, cM0, PSA: 10 to 19, [place] 7) - Unsigned Apnea Sleep Obstructive Overview (10/04/2018): Compliant with CPAP use Hypertension NOS Thromboembolism NOS Overview (10/04/2018): Left, superficial Gastroesophageal Reflux Disease NOS Current Oncology Plans Leuprolide Acetate Every 16 Weeks* Plan Start Date:07/02/2023 Plan Provider:Issa Vazquez M.D. Linked Problems Primary Malignant Neoplasm O f Prostate (HCC)Rising Prostate Specific Antigen Following Treatment For Malignant Cancer Of Prostate Treatment Medications No medications scheduled. Past Plans No past plan information found. Radiation Treatments * Plan Last Treated On Elapsed Days Fractions Treated Prescribed Fraction Dose Prescribed Total Dose [id number] 09/09/2023 43 7 of 7 215 cGy 1,505 cGy [id number] 08/31/2023 34 25 of 25 215 cGy 5,375 cGy Reference Point Last Treated On Elapsed Days Session Dose Total Dose [id number] 09/09/2023 43 215 cGy 6,880 cGy Resolved Problems Problem Noted Date Diagnosed Date Resolved Date Alcohol Mild Use Disorder (Jami zacarias) Uncomplicated 10/04/2018 10/04/2018
--- OUTSIDE RECORDS SUMMARY | 2023-12-29 07:14 | XMS_ITS | Encounter Summary ---
Author Organization [facility] Address [address] [place] [address] Care Team Providers Care Top Spotter Name Role Phone Unavailable Primary Care Provider Unavailabl e Encounter Details Date Type Department Care Team (Late st Contact Info) Description 12/13/2023 Clinical Communication Department of Radiation Oncology in [place], [place] [address] [place] [address] Des Dillard M.D. [address] [place] [address] Social History Tobacco Use Types Packs/Day Years Used Date Smoking Tobacco: Never Smokeless Tobacco: Former Chew Quit: 2013 Alcohol Use Standard Drinks/Week Comments Not Currently 21 (1 standard drink = 0.6 oz pu re alcohol) [facility] Utilities Answer Date Recorded In the past 12 months has [employer], [employer], oil, or water [employer] threatened to shut off services in your [...] often do you attend chur ch or uatsdin services? Never 11/01/2019 Do you belong to [...] and heating? Not hard at all 11/01/2019 [facility] of Occupat ional Health - Occupational Stress [...] your living situation today? I have a [facility] place to live 06/06/2023 Education Answer Date Recorded What is the highest level of school you have completed or the highest degree you have received? Bachelor's degree (e.g., BA, AB, BS) 11/01/2019 Sex and Gender Information Value Date Recorded Sex Assigned at Male 06/06/2023 10:42 PM UTILIZATION MANAGEMENT MANAGER Gender Identity Male 11/01/2019 10:26 PM CDT Sexual Orientation Straight 11/01/2019 10 :26 PM CDT documented as of this encounter Miscellaneous Notes * Telephone Encounter - Adrian Funk - 12/13/2023 1:50 PM CDT Other Reason for Call Caller: Hussain Relationships to patient: Self Reason for call: Patient called to share that the disability company his employer uses contacted him requesting an update on his health. He is requesting that we fax the following information to [employer], Attn: Staci Crouch . Recent office note, current medical status, medical limitations, current medications. Hussain said he can be contacted with any questions. documented in this encounter Plan of Treatment Upcoming Encounters Date Type Department Care Team (Latest Contact Info) Description 02/10/2024 10:30 AM CDT Clinical Communication Virtual Review in [place], [place] [address] [place] [address] 02/14/2024 2:30 PM CDT Appointment Department of Radiation Oncology in [place], [place] [address] [place] [phone] Des Dillard M.D. [address] [place] [address] documented as of this encounter Visit Diagnoses Not on filedocumented in this encounter
--- OUTSIDE RECORDS SUMMARY | 2023-12-29 07:15 | XMS_ITS | Continuity of Care Document ---
Author Name [facility] Organization [facility] Care Team Providers Care Mri Technician Name Role Phone [facility] Unavailable Unavailable Problems Combined list of problems from Department of Defense and Veterans Affairs facilities. It does not include entries that were removed or entered in error. Problem Status Onset Date Problem Type Date of Resolution Comments Source midback pain Active Condition DoD lumbago Inactive Condition DoD visit for: administrative purpose Inactive Condition DoD visit for: screening exam Inactive Condition DoD hypertension systemic Active Condition DoD toe sprain Inactive Condition DoD visit for: issue medical certificate Inactive Condition DoD contusion with intact skin surface - right index finger Inactive Condition Pt with crush uinjury to right index finger two weeks ago, Now will new swelling in injured finger. did not demonstrate any S/S of infection. Offered an x-ray pt did not want one. If worsens or does not imrpove, pt to call and will d/w Ortho. DoD upper respiratory infection Inactive Condition inactive flyerno dnifHigh BP may be related to his current URI. 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 DoD Allergies, Adverse Reactions, Alerts Combined list of allergies from Department of Defense and Veterans Affairs facilities. It does not include entries that were removed or entered in error. Substance Category Reaction Severity Reaction type Status Date Reported Comments Source No Known Allergies Drug allergy (disorder) active 07/12/2007 [facility] Immunizations Combined list of available immunizations from the Department of Defense and Veterans Affairs facilities. Immunization Series Date Given Administered By Site Reaction Lot Number CVX Code Drug Medical Records Administrator Status Comments Source Influenza, seasonal, injectable, preservative free 15 2011 Unknown, Provider [id number] [employer] (CSL) complet ed Influenza , seasonal, injectabl e, preservat essence free DoD typhoid Vi capsular polysaccharid e vaccine 6 2011 Unknown, Provider [id number] Sanofi Pasteur ([facility]) complet ed typhoid Vi capsular polysacch aride vaccine DoD Influenza, seasonal, injectable, preservative free 1 2010 Unknown, Provider [id number] 140 Sanofi Pasteur ([facility]) complet ed Influenza , seasonal, injectabl e, preservat essence free DoD influenza virus vaccine, split virus (incl. purified surface antigen)-reti red CODE 1 2009 Unknown, Provider [id number] 15 Sanofi Pasteur ([facility]) complet ed influenza virus vaccine, split virus (incl. purified surface antigen)- retired CODE DoD hepatitis B vaccine, adult dosage 3 2009 Unknown, Provider [id number], adult dosage DoD typhoid Vi capsular polysaccharid e vaccine 1 2009 Unknown, Provider [id number] 101 Sanofi Pasteur ([facility]) complet ed typhoid Vi capsular polysacch aride vaccine DoD varicella virus vaccine 2 2009 Unknown, Provider [id number] Merck (MSD) complet ed varicella virus vaccine DoD hepatitis B vaccine, adult dosage 2 2009 Unknown, Provider [id number] [facility] B vaccine, adult dosage DoD varicella virus vaccine 1 2009 Unknown, Provider [id number] Merck (MSD) complet ed varicella virus vaccine DoD hepatitis B vaccine, adult dosage 1 2009 Unknown, Provider [id number] 43 [facility] hepatitis B vaccine, adult dosage DoD Novel influenza-H1N 1-09, injectable 1 2009 Unknown, Provider [id number] 127 [employer] (NOV) complet ed Novel influenza -H2G4-17, injectabl e DoD influenza virus vaccine, split virus (incl. purified surface antigen)-reti red CODE 1 2008 Unknown, Provider [id number] 15 [employer] (CSL) complet ed influenza virus vaccine, split virus (incl. purified surface antigen)- retired CODE DoD influenza virus vaccine, split virus (incl. purified surface antigen)-reti red CODE 1 2007 Unknown, Provider [id number] 15 [employer] (CSL) complet ed influenza virus vaccine, split virus (incl. purified surface antigen)- retired CODE DoD yellow fever vaccine 1 2007 Unknown, Provider [id number] 37 Sanofi Pasteur ([facility]) complet ed yellow fever vaccine DoD meningococcal polysaccharid e (groups A, C, Y and W-135) diphtheria toxoid conjugate vaccine (MCV4P) 1 2007 Unknown, Provider [id number] 114 [facility] ([facility]) complet ed meningoco ccal polysacch aride (groups A, C, Y and W-135) diphtheri a toxoid conjugate vaccine (MCV4P) DoD typhoid Vi capsular polysaccharid e vaccine 1 2007 Unknown, Provider [id number] [facility] ([facility]) complet ed typhoid Vi capsular polysacch aride vaccine DoD tetanus toxoid, reduced diphtheria toxoid, and acellular pertu is vaccine, adsorbed 1 2007 [id number] 115 Sanofi Pasteur ([facility]) complet ed tetanus toxoid, reduced diphtheri a toxoid, and acellular pertussis vaccine, adsorbed DoD influenza virus vaccine, split virus (incl. purified surface antigen)-reti red CODE 1 2006 [id number] () complet ed influenza virus vaccine, split virus (incl. purified surface antigen)- retired CODE DoD influenza virus vaccine, split virus (incl. purified surface antigen)-reti red CODE 1 2006 [id number] 15 Sanofi Pasteur ([facility]) complet ed influenza virus vaccine, split virus (incl. purified surface antigen)- retired CODE DoD tuberculin skin test; purified protein derivative solution, intradermal 1 2006 Unknown, Provider [id number] Other (OTH) complet ed tuberculi n skin test; purified protein derivativ e solution, intraderm al DoD influenza virus vaccine, split virus (incl. purified surface antigen)-reti red CODE 1 2005 [id number] 15 Sanofi Pasteur ([facility]) complet ed influenza virus vaccine, split virus (incl. purified surface antigen)- retired CODE DoD typhoid Vi capsular polysaccharid e vaccine 1 2005 [id number] [facility] ([facility]) complet ed typhoid Vi capsular polysacch aride vaccine DoD influenza virus vaccine, live, attenuated, for intranasal use 0 2004 [id number] [employer] (MED) complet ed influenza virus vaccine, live, attenuate d, for intranasa l use DoD influenza virus vaccine, split virus (incl. purified surface antigen)-reti red CODE 1 2002 Unknown, Provider [id number] 15 Jalen (SUSANNA) complet ed influenza virus vaccine, split virus (incl. purified surface antigen)- retired CODE DoD influenza virus vaccine, whole virus 0 2002 [id number] 16 Jalen (SUSANNA) complet ed influenza virus vaccine, whole virus DoD varicella virus vaccine 1 2002 21 () Not Given varicella virus vaccine DoD influenza virus vaccine, split virus (incl. purified surface antigen)-reti red CODE 1 2000 Unknown, Provider [id number] 15 Jalen (SUSANNA) complet ed influenza virus vaccine, split virus (incl. purified surface antigen)- retired CODE DoD influenza virus vaccine, whole virus 0 2000 [id number] 16 Jalen (SUSANNA) complet ed influenza virus vaccine, whole virus DoD typhoid vaccine, parenteral, other than acetone-kille d, dried 0 2000 [id number] Luis [employer]aught (CON) complet ed typhoid vaccine, parentera l, other than acetone-k illed, dried DoD influenza virus vaccine, split virus (incl. purified surface antigen)-reti red CODE 1 1998 Unknown, Provider [id number] 15 Yashirat (CON) complet ed influenza virus vaccine, split virus (incl. purified surface antigen)- retired CODE DoD influenza virus vaccine, whole virus 0 [id number] 16 [employer] (CON) complet ed influenza virus vaccine, whole virus DoD influenza virus vaccine, split virus (incl. purified surface antigen)-reti red CODE 1 1997 Unknown, Provider [id number] 15 Jalen (SUSANNA) complet ed influenza virus vaccine, split virus (incl. purified surface antigen)- retired CODE DoD influenza virus vaccine, whole virus 0 [id number] 16 Jalen (SUSANNA) complet ed influenza virus vaccine, whole virus DoD hepatitis A vaccine, adult dosage 2 1997 [id number] Merck (MSD) complet ed hepatitis A vaccine, adult dosage DoD measles, mumps and rubella virus vaccine 0 1997 [id number] Unknown (UNK) comple t ed measles, mumps and rubella virus vaccine DoD meningococcal polysaccharid e vaccine (MPSV4) 0 1997 [id number] Unknown (UNK) comple t ed meningoco ccal polysacch aride vaccine (MPSV4) DoD typhoid vaccine, parenteral, other than acetone-kille d, dried 0 1997 [id number] [place] (CON) complet ed typhoid vaccine, parentera l, other than acetone-k illed, dried DoD measles, mumps and rubella virus vaccine 0 1997 [id number] 03 Merck (MSD) complet ed measles, mumps and rubella virus vaccine DoD influenza virus vaccine, split virus (incl. purified surface antigen)-reti red CODE 1 1997 Unknown, Provider [id number] 15 [place] (CON) complet ed influenza virus vaccine, split virus (incl. purified surface antigen)- retired CODE DoD influenza virus vaccine, whole virus 0 1997 [id number] 16 [place] (CON) complet ed influenza virus vaccine, whole virus DoD hepatitis A vaccine, adult dosage 1 1997 [id number] 52 Merck (MSD) complet ed hepatitis A vaccine, adult dosage DoD yellow fever vaccine 0 1996 [id number] 37 Unknown (UNK) comple t ed yellow fever vaccine DoD tetanus and diphtheria toxoids, adsorbed, preservative free, for adult use (2 Lf of tetanus toxoid and 2 Lf of diphtheria toxoid) 0 1996 [id number] 09 Merck (MSD) complet ed tetanus and diphtheri a toxoids, adsorbed, preservat essence free, for adult use (2 Lf of tetanus toxoid and 2 Lf of diphtheri a toxoid) DoD trivalent poliovirus vaccine, live, oral 1 1984 02 (MV) complet ed trivalent polioviru s vaccine, live, oral DoD Encounters Combined list of: 1) Encounters from Department of Veterans Affairs facilities going back up to thelast 18 months. 2) Encounters from the Department of Defense facilities going back up to 280 months. Location Location Details Encounter Type Encounter Number Reason For Visit Attending Provider ADM Date DC Date Status Disposition Source [address] [place] [address] Medicine 0073) OUTPATIENT [id number] cut hand over weekend , needs RTFS PIERRE AYALA 02/01 Released w/o Limitations [employer]([facility] 0073) [facility] [facility] Medicine [facility]) OUTPATIENT [id number] annual fly pha NATTY GARDNER Nubia 07/12 Released w/o Limitations [facility] [facility] Medicine [facility]) [facility] [id number] [facility] IFEANYI Graham Porfirio 07/15 Released w/o Limitations [facility]) [employer]([place] [address]) OUTPATIENT [id number] infecti on on R finger PIERRE AYALA 01/19 Released w/o Limitations [employer] [facility] Medic[facility] 0073) [employer]([facility] Medicine [facility]) OUTPATIENT [id number] POLI DA SILVA 07/12 Released w/o Limitations [employer] [facility] Medicin e 0073) [employer]([facility] Medicine [facility]) OUTPATIENT [id number] Notes Entered by: Romulo LLOYD 19 Jun 2011 0752 ------- ------- ------- ------- -- RYAN Tran 06/19 Released w/o Limitations [employer] [facility] Medic[facility] e 0073) [employer]([facility] Medicine [facility]) OUTPATIENT [id number] RYAN TRIMBLE 11/16 Released w/o Limitations [employer] [facility] light Medicin e 0073) [employer] [facility](E[facility] Card Lab (Tech Only)) OUTPATIENT [id number] ekg/SONDRA Leiva 11/17 Released w/o Limitations [facility] [facility](E KG Card Lab (Tech Only)) [facility]) OUTPATIENT [id number] Notes Entered by: RALEIGH BARDALES 19 Nov 2011 0947 ------- ------- ------- ------- -- Walkin per FLAQUITO Woodruff 11/18 Released w/o Limitations [facility] [facility](C ardiolo gy Procedu re Clinic) [facility] [facility](EKG [facility] (Tech Only)) OUTPATIENT [id number] echo/bj ROXY Nunn 11/18 Released w/o Limitations [facility] [facility](E KG Card Lab (Tech Only)) [facility]) OUTPATIENT [id number] echo FLAQUITO Paul 11/18 Released w/o Limitations [facility] [facility](C ardiolo gy Procedu re Clinic) [facility] [facility](EKG Card Lab (Tech Only)) OUTPATIENT [id number] Notes Entered by: NIYA ANGELES 20 Nov 2011 0820 ------- ------- ------- ------- -- ekg/ko a SONDRA LAL 11/19 Released w/o Limitations [facility] [facility](E KG Card Lab (Tech Only)) [employer] [facility](Fli t Medicine 0073) OUTPATIENT [id number] RTFS RYAN JOSHI 12/09 Released w/o Limitations [employer] [facility](F light Medicin e 0073) [employer] [facility](Fli t Medicine 0073) TELE CONSULT [id number] Notes Entered by: GREER PORTILLO 16 Dec 2011 1744 ------- ------- ------- ------- -- Labs RYAN JOSHI 12/15 [employer] [facility](F light Medicin e 0073) [employer](Fli t Medicine 0073) OUTPATIENT [id number] [address] SHOAIB FLETCHER 01/31 Released w/o Limitations [employer] [facility](F light Medicin e 0073) [employer](Fli t Medicine 0073) OUTPATIENT [id number] Notes Entered by: STEVE HOWELL I 29 Feb 2012 0829 ------- ------- ------- ------- -- Back px RYAN JOSHI 02/28 Released w/o Limitations [facility](F light Medicin e 0073) [facility] Medicine 0073) TELE CONSULT [id number] Notes Entered by: GREER PORTILLO 11 Oct 2012 1533 ------- ------- ------- ------- -- Refill prescri ption meds RYAN JOSHI 10/11 [facility](F light Medicin e 0073) Procedures Combined list of: 1) Procedures from Department of Veterans Affairs facilities going back up to thelast 18 months, not all VA non-surgical procedures are included; 2) All procedures from the Department of Defense facilities. Procedure Procedure Type Code Date Perfomer Comments Sour e Electrocardiogram Electrocardiogram 27095 11/19 12 PlanGWRTraxerSONDRA DoD Echo Congenital Cardiac Defects Transthoracic W/ M-Mode, Spectral, & Color Flow Echo Congenital Cardiac Defects Transthoracic W/ M-Mode, Spectral, & Color Flow [id number] 11/19/19 12 ROXY RUBIO DoD Electrocardiogram Electrocardiogram 20753 11/17 12 [employer] SONDRA H DoD Social History Combined list of available smoking, tobacco, and other social history from Department of Defense and Veterans Affairs facilities. Social History Type Response Date Comment Sour e This section is an empty social history section. DoD
--- NOTE | 2023-12-29 08:09 | W.PM.H&PU ---
History & Physical Update History & Physical Update H&P Reviewed and patient assessed: No changes noted
--- NOTE | 2023-12-29 08:10 | PM.ORPRC ---
Procedure Note Date of procedure: 12/29/23 Procedure: PREOPERATIVE DIAGNOSIS: 1. Left ring finger trigger digit POSTOPERATIVE DIAGNOSIS: 1. Left ring finger trigger digit PROCEDURE: 1. Left ring finger trigger (A1 sparkle) release SURGEON: Hussain Drew MD. INDEPENDENT LIVING INSTRUCTOR: PEYTON Herrera. An marketing operations assistant was critical for this case to aid in patient positioning, tissue retraction, limb manipulation/positioning, and closure. ANESTHESIA: Local anesthetic IMPLANTS: None TOURNIQUET: 6 min at 200 mmHg ESTIMATED BLOOD LOSS: 0 mL COMPLICATIONS: None INDICATIONS: The patient is a pleasant 63-year-old male who has history of left ring finger pain and triggering. Symptoms did not improve with conservative management. Patient subsequently elected to proceed with surgical intervention consisting of left ring finger A1 sparkle release. Prior to surgery risks and benefits were discussed with patient all questions were answered informed consent was obtained. DESCRIPTION OF PROCEDURE: Patient was seen preoperatively and operative site was marked. Patient was then brought to the operating room placed in supine position on the OR table. A tourniquet was placed on the patient's left arm and left upper extremity was prepped and draped in usual sterile fashion. A surgical time-out was performed confirming patient name, procedure, and location. The subcutaneous tissues overlying the left ring finger A1 sparkle were injected with combination of 1% lidocaine and 0.25% bupivacaine. Operative extremity was then elevated and exsanguinated with an Esmarch, and tourniquet was inflated to 200 mmHg. A skin incision measuring approximately 1 cm was made longitudinally over the A1 sparkle of the left ring finger. Blunt dissection was used to dissect through subcutaneous tissues. The underlying flexor tendons and A1 sparkle were identified and retractors were used to protect the neurovascular structures. The A1 sparkle was then released using a tenotomy scissor. After complete release of the A1 sparkle, the patient was asked to flex and extend their fingers, and no active triggering was noted. Tourniquet was then released and hemostasis was achieved with bipolar electrocautery. Total tourniquet time was 6 minutes. Wound was the irrigated with normal saline. Skin incision was closed with 4-0 nylon horizontal mattress sutures, and a sterile dressing was applied. Patient was then transferred to the recovery room in stable condition. POSTOPERATIVE PLAN: 1. Patient will be discharged to home day of surgery. 2. They were given instructions for wound care and finger range of motion exercises. 3. Return to the clinic for follow-up evaluation in 10-14 days for wound check and suture removal.
[2023-12-29] MEDS: LIDOCAINE 1% MDV INJECTION (08:28)
[2023-12-29] MEDS: BUPIVACAINE 0.25% 30 ML 4.5 ML INJECTION (08:28)
--- NOTE | 2023-12-29 08:28 | SUR.OPER ---
PATIENT QUESTIONS ANSWERED SATISFACTORILY PREOPERATIVELY. PATIENT BROUGHT TO OR #3 PER WHEELCHAIR. Patient positioned supine on OR #3 bed. The perioperative team supported arms bilaterally on arm boards. Final approval of positioning by surgeon.
[2023-12-29] MEDS: BACITRACIN OINTMENT BULK TUBE 1 APPLIC TOPICAL (08:41)
== END 2023-12-29 08:59 | disposition home or self-care (01) ==
PROVIDERS: PCP Physician Assistant Medical; Visit Provider Orthopaedic Surgery
PROC: (CPT 26055; principal; 2023-12-29 09:00)
DX: M65.342 Trigger finger, left ring finger (principal)
CPT/HCPCS: 26055; J0665

== ENCOUNTER 2024-01-21 06:21 | Day surgery (SDC) | payer BC, SELFPAY ==
[2024-01-21] VITALS (9 sets, daily range): BP systolic 121–135; BP diastolic 72–85; PULSE 78–85; RESP 15–16; TEMP 36.7; O2SAT 95–99; BMI 39.4
--- OUTSIDE RECORDS SUMMARY | 2024-01-21 06:23 | XMS_ITS | Clinical Summary ---
Author Organization [facility] Address [address] [place] [address] Care Team Providers Care Specimen Accessioner Name Role Phone Unavailable Primary Care Provider Unavailabl e Source Comments Patient records contain information from all sites at [facility]. For routine questions regarding patient records, call [phone] during business hours, M-F 8:00 AM - 5:00 PM Central Time. Record requests for emergency care only can be directed to [phone] at any time.[facility] Allergies No known active allergies Medications Medication [...] (09/08/2018): Added automatically from request for surgery [id number] Primary Malignant Neoplasm Of Prostate 7 Cancer Staging:Pathologic stage from 12/18/2013:Stage IIB(T2c, N0, cM0, PSA: 10 to 19, [place] 7) - Unsigned Apnea Sleep Obstructive Overview (10/04/2018): Compliant with CPAP use Hypertension NOS Thromboembolism NOS Overview (10/04/2018): Left, superficial Gastroesophageal Reflux Disease NOS Resolved Problems Problem Noted Date Diagnosed Date Resolved Date Alcohol Mild Use Disorder (A buse) Uncomplicated 10/04/2018 10/04/2018 Encounters Date Type Department Care Team Description 12/13/2023 Clinical Communication Department of Radiation Oncology in [address] [address] Des Dillard M.D. 11/29/2023 Clinical Communication Department of Radiation Oncology in [address] [address] Des Dillard M.D. from Last 3 Months Family History Medical History Relation Name Comments Cancer Neg Hx Social History Tobacco Use Types Packs/Day Years Used Date Smoking Tobacco: Never Smokeless Tobacco: Former Chew Quit: 2013 Tobacco Cessation:Counseling Given: Not Answered Alcohol Use Standard Drinks/Week Comments Not Currently 21 (1 standard drink = 0.6 oz pu re alcohol) [facility] Utilities Answer Date Recorded In the past 12 months has [employer], gas, oil, or water [employer] threatened to shut off services in your home? No 06/06/2023 Social Connection and Isolation Panel [NHANES] A nswer Date Recorded In a typical week, how many times do you talk on the phone with family, friends, or neighbors? Three times a week 11/01/2019 How often do you get togethe r with friends or relatives? Never 11/01/2019 How often do you attend [facility] or cheondoism services? Never 11/01/2019 Do you belong to any clubs o r organizations such as spiritism groups, unions, fraternal or athletic groups, or [...] and heating? Not hard at all 11/01/2019 [facility] [place] [facility] of Occupat ional Health - Occupational Stress [...] your living situation today? [facility] 06/06/2023 Education Answer Date Recorded What is the highest level of school you have completed or the highest degree you have received? Bachelor's degree (e.g., BA, AB, BS) 11/01/2019 Sex and Gender Information Value Date Recorded Sex Assigned at Male 06/06/2023 10:42 PM RESEARCH PHARMACIST Gender Identity Male 11/01/2019 10:26 PM CDT Sexual Orientation Straight 11/01/2019 10 :26 PM CDT Last Filed Vital Signs Vital Sign Reading Time Taken Comments Blood Pressure 120/80 08/18/2023 2:17 PM CDT Pulse 91 08/18/2023 2:17 PM CDT Temperature 35.7 ??C (96.3 ??F) 09/09/2023 1:56 PM CD T Respiratory Rate 19 10/05/2018 1:10 PM CDT Oxygen Saturation 96% 06/15/2023 3:02 PM RESEARCH PHARMACIST Inhaled Oxygen Concentration - - Weight 125 kg (275 lb 9.2 oz) 09/09/2023 1:56 PM CDT Height 178.2 cm (5' 10.16) 10/04/2018 2:08 PM C DT Body Mass Index 39.36 10/04/2018 2:08 PM CDT Plan of Treatment Upcoming Encounters Date Type Department Care Team (Latest Contact Info) Description 02/10/2024 10:30 AM CDT Clinical Communication Virtual Review in [place], [place] [address] [place] [address] 02/14/2024 2:30 PM CDT Appointment Department of Radiation Oncology in [place], [place] [address] [place] [address] Des Dillard M.D. [address] [place] [address] Health Maintenance Due Date Last Done Comments [...] this topic Medical Devices Implanted Type Area Cast Iron Drain Pipe Layer Device Identifier Shelf Expiration Date Model / Serial / Lot Knee Implant Knee Implant Bilateral : Knee Procedures Procedure Name Priority Date/Time Associated Diagnosis Comments LIPID PANEL, S Routine 06/30/2023 9:40 AM RESEARCH PHARMACIST Primary Malignant Neoplasm Of Prostate (HCC) Rising [...] * (ABNORMAL) Lipid Panel (06/30/2023 9:40 AM RESEARCH PHARMACIST) Triglycerides 201(H) mg/dL 06/30/2023 10:30 AM RESEARCH PHARMACIST DTL Comment: ----REFERENCE VALUE---- Normal: <150 mg/dL Borderline High: 150-199 mg/dL High: 200-499 mg/dL Very High: > or =500 mg/dL Cholesterol, Total 208(H) mg/dL 2023 10:30 AM RESEARCH PHARMACIST DTL Comment: ----REFERENCE VALUE---- Desirable: < 200 mg/dL Borderline High: 200 - 239 mg/dL High: > or = 240 mg/dL Cholesterol, LDL, Calculated 126 mg/dL 06/30/2023 10:30 AM RESEARCH PHARMACIST DTL Comment: ----REFERENCE VALUE---- Desirable: <100 mg/dL Above Desirable: 100-129 mg/dL Borderline High: 130-159 mg/dL High: 160-189 mg/dL Very High: >=190 mg/dL ----ADDITIONAL INFORMATION---- LDL cholesterol calculated using the León/NIH equation. Cholesterol, HDL, S 46 >=40 mg/dL 06/30/2023 10:30 AM RESEARCH PHARMACIST DTL Cholesterol, Non-HDL, Calculated 162(H) mg/dL 06/30/2023 10:30 AM RESEARCH PHARMACIST DTL Comment: ----REFERENCE VALUE---- Desirable: <130 mg/dL Above Desirable: 130-159 mg/dL Borderline High: 160-189 mg/dL High: 190-219 mg/dL Very High: > or =220 mg/dL Fasting (8 HR or more) Yes 06/30/2023 10:05 AM RESEARCH PHARMACIST DTL Blood (Blood, Venous) 06/30/2023 9:40 AM RESEARCH PHARMACIST 06/30/2023 10:05 AM RESEARCH PHARMACIST Issa Vazquez M.D. LAB BLOOD ADD-ON [facility] [place] [address] [facility] [address] [place] [address] * Hemoglobin A1c (10/04/2018 3:09 PM CDT) Hemoglobin A1c, B 5.4 4.0 - 5.6 % 10/04/2018 3:35 PM CDT [facility] [place] Blood (Blood, Venous) 10/04/2018 3:09 PM CDT 10/04/2018 3:17 PM CDT Honorio Luna M.D. LAB BLOOD ADD-ON Performing Organization Address City/[facility]/ZIP Co de Phone Number [facility] [place] [address] * Potassium (10/04/2018 3:08 PM CDT) Potassium, S 4.6 3.6 - 5.2 mmol/L 10/04/2018 4:18 PM CDT [facility] [place] Blood (Blood, Venous) 10/04/2018 3:08 PM CDT 10/04/2018 3:16 PM CDT Honorio Luna M.D. LAB BLOOD ADD-ON [facility] [place] [address] * Creatinine with Estimated GFR (10/04/2018 3:08 PM CDT) Creatinine 0.76 0.74 - 1.35 mg/dL 10/04/2018 4:18 PM CDT [facility] [place] eGFR-Non Black/ >90 >=60 mL/min/BSA 10/04/2018 4:18 PM CDT [facility] [place] Comment: ----ADDITIONAL INFORMATION---- Estimated GFR calculated using the 2009 CKD_EPI creatinine equation. eGFR-Black/Afri can Macedonian >90 >=60 mL/min/BSA 10/04/2018 4:18 PM CDT [facility] [place] Comment: ----ADDITIONAL INFORMATION---- Estimated GFR calculated using the 2009 CKD_EPI creatinine equation. Blood (Blood, Venous) 10/04/2018 3:08 PM CDT 10/04/2018 3:16 PM CDT Honorio Luna M.D. LAB BLOOD ADD-ON [facility] [place] [address] from Last 3 Months or Most Recently Relevant to Health Maintenance Advance Directives For more information, please contact: [phone] * Full Code (Latest Code Status on File) Date Activated Date Inactivated Comments 10/05/2018 10:14 AM 10/05/2018 3:34 PM Question Answer Comments Full Code: Discussed
--- OUTSIDE RECORDS SUMMARY | 2024-01-21 06:24 | XMS_ITS | Encounter Summary ---
Author Organization [facility] Address [address] [place] [address] Care Team Providers Care Environmental Control Administrator Name Role Phone Unavailable Primary Care Provider Unavailabl e Encounter Details Date Type Department Care Team (Late st Contact Info) Description 12/13/2023 Clinical Communication Department of Radiation Oncology in [place], [place] [address] [place] [address] Des Dillard M.D. [address] [place] [address] Social History Tobacco Use Types Packs/Day Years Used Date Smoking Tobacco: Never Smokeless Tobacco: Former Chew Quit: 2013 Alcohol Use Standard Drinks/Week Comments Not Currently 21 (1 standard drink = 0.6 oz pu re alcohol) [facility] Utilities Answer Date Recorded In the past 12 months has [employer], [employer], oil, or water [employer] threatened to shut off services in your [...] often do you attend chur ch or buddhism services? Never 11/01/2019 Do you belong to any clubs o r organizations such as taoism groups, unions, fraternal or athletic groups, or [...] and heating? Not hard at all 11/01/2019 [facility] of Occupat ional Health - Occupational Stress [...] your living situation today? I have a [facility] place to live 06/06/2023 Education Answer Date Recorded What is the highest level of school you have completed or the highest degree you have received? Bachelor's degree (e.g., BA, AB, BS) 11/01/2019 Sex and Gender Information Value Date Recorded Sex Assigned at Male 06/06/2023 10:42 PM FURNACE BUILDER Gender Identity Male 11/01/2019 10:26 PM CDT [...] that we fax the following information to [employer], Attn: Staci Crouch . Recent office note, current medical status, medical limitations, current medications. Hussain said he can be contacted with any questions. documented in this encounter Plan of Treatment Upcoming Encounters Date Type Department Care Team (Latest Contact Info) Description 02/10/2024 10:30 AM CDT Clinical Communication Virtual Review in [place], [place] [address] [place] [address] 02/14/2024 2:30 PM CDT Appointment Department of Radiation Oncology in [place], [place] [address] [place] [address] Des Dillard M.D. [address] [place] [address] documented as of this encounter Visit Diagnoses Not on filedocumented in this encounter
--- OUTSIDE RECORDS SUMMARY | 2024-01-21 06:24 | XMS_ITS ---
Author Organization [facility] Address [address] [place] [address] Care Team Providers Care Machine Operator Picker Name Role Phone Unavailable Unavailable Unavailable Surgery Details Not on file Complications Check Surgery Details section. Procedure Estimated Blood Loss Check Surgery Details section. Procedure Findings Check Surgery Details section. Procedure Specimens Taken Check Surgery Details section.
--- OUTSIDE RECORDS SUMMARY | 2024-01-21 06:24 | XMS_ITS | Continuity of Care Document ---
Author Name [facility] Organization [facility] Care Team Providers Care M48 M60 Armor Crewman Name Role Phone [facility] Unavailable Unavailable Problems Combined list of problems [...] Site Reaction Lot Number CVX Code Drug Cupola Charger Status Comments Source Influenza, seasonal, injectable, preservative free 15 2011 Unknown, Provider [id number] [employer] (CSL) complet ed Influenza , seasonal, injectabl e, preservat essence free DoD typhoid Vi capsular polysaccharid e vaccine 6 2011 Unknown, Provider [id number] Sanofi Pasteur ([facility]) complet ed typhoid Vi capsular polysacch aride vaccine DoD Influenza, seasonal, injectable, preservative free 1 2010 Unknown, Provider [id number] Sanofi Pasteur ([facility]) complet ed Influenza , seasonal, injectabl e, preservat essence free DoD influenza virus vaccine, split virus (incl. purified surface antigen)-reti red CODE 1 2009 Unknown, Provider [id number] 15 Sanofi Pasteur ([facility]) complet ed influenza virus vaccine, split virus (incl. purified surface antigen)- retired CODE DoD hepatitis B vaccine, adult dosage 3 2009 Unknown, Provider [id number] [facility] ([facility]) complet ed hepatitis B vaccine, adult dosage DoD typhoid Vi capsular polysaccharid e vaccine 1 2009 Unknown, Provider [id number] 101 Sanofi Pasteur ([facility]) complet ed typhoid Vi capsular polysacch aride vaccine DoD varicella virus vaccine 2 2009 Unknown, Provider [id number] Merck (MSD) complet ed varicella virus vaccine DoD hepatitis B vaccine, adult dosage 2 2009 Unknown, Provider [id number] 43 [facility] ([facility]) complet ed hepatitis B vaccine, adult dosage DoD varicella virus vaccine 1 2009 Unknown, Provider [id number] Merck (MSD) complet ed varicella virus vaccine DoD hepatitis B vaccine, adult dosage 1 2009 Unknown, Provider [id number] 43 [facility] (B) complet ed hepatitis B vaccine, adult dosage DoD Novel influenza-H1N 1-09, injectable 1 2009 Unknown, Provider [id number] 127 Nov[employer]is [employer]. (NOV) complet ed Novel influenza -Y1A0-42, injectabl e DoD influenza virus vaccine, split virus (incl. purified surface antigen)-reti red CODE 1 2008 Unknown, Provider [id number] 15 [employer] (CSL) complet ed influenza virus vaccine, split virus (incl. purified surface antigen)- retired CODE DoD influenza virus vaccine, split virus (incl. purified surface antigen)-reti red CODE 1 2007 Unknown, Provider [id number] 15 [employer] (CSL) complet ed influenza virus vaccine, split virus (incl. purified surface antigen)- retired CODE DoD yellow fever vaccine 1 2007 Unknown, Provider [id number] Sanofi Pasteur ([facility]) complet ed yellow fever vaccine DoD meningococcal polysaccharid e (groups A, C, Y and W-135) diphtheria toxoid conjugate vaccine (MCV4P) 1 2007 Unknown, Provider [id number] [facility]) complet ed meningoco ccal polysacch aride (groups A, C, Y and W-135) diphtheri a toxoid conjugate vaccine (MCV4P) DoD typhoid Vi capsular polysaccharid e vaccine 1 2007 Unknown, Provider [id number] 101 [facility] ([facility]) complet ed typhoid Vi capsular polysacch aride vaccine DoD tetanus toxoid, reduced diphtheria toxoid, and acellular pertu is vaccine, adsorbed 1 2007 [id number] 115 Sanofi Pasteur ([facility]) complet ed tetanus toxoid, reduced diphtheri a toxoid, and acellular pertussis vaccine, adsorbed DoD influenza virus vaccine, split virus (incl. purified surface antigen)-reti red CODE 1 2006 [id number] () complet ed influenza virus vaccine, split virus (incl. purified surface antigen)- retired CODE DoD influenza virus vaccine, split virus (incl. purified surface antigen)-reti red CODE 1 2006 [id number] 15 Sanofi Pasteur ([facility]) complet ed influenza virus vaccine, split virus (incl. purified surface antigen)- retired CODE DoD tuberculin skin test; purified protein derivative solution, intradermal 1 2006 Unknown, Provider [id number] Other (OTH) complet ed tuberculi n skin test; purified protein derivativ e solution, intraderm al DoD influenza virus vaccine, split virus (incl. purified surface antigen)-reti red CODE 1 2005 [id number] 15 Sanofi Pasteur ([facility]) complet ed influenza virus vaccine, split virus (incl. purified surface antigen)- retired CODE DoD typhoid Vi capsular polysaccharid e vaccine 1 2005 [id number] [facility] ([facility]) complet ed typhoid Vi capsular polysacch aride vaccine DoD influenza virus vaccine, live, attenuated, for intranasal use 0 2004 [id number] [employer] (MED) complet ed influenza virus vaccine, live, attenuate d, for intranasa l use DoD influenza virus vaccine, split virus (incl. purified surface antigen)-reti red CODE 1 2002 Unknown, Provider [id number] 15 Jalen (SUSANNA) complet ed influenza virus vaccine, split virus (incl. purified surface antigen)- retired CODE DoD influenza virus vaccine, whole virus 0 2002 [id number] 16 Jalen (SUSANNA) complet ed influenza virus vaccine, whole virus DoD varicella virus vaccine 1 2002 21 () Not Given varicella virus vaccine DoD influenza virus vaccine, split virus (incl. purified surface antigen)-reti red CODE 1 2000 Unknown, Provider [id number] 15 Jalen (SUSANNA) complet ed influenza virus vaccine, split virus (incl. purified surface antigen)- retired CODE DoD influenza virus vaccine, whole virus 0 2000 [id number] 16 Jalen (SUSANNA) complet ed influenza virus vaccine, whole virus DoD typhoid vaccine, parenteral, other than acetone-kille d, dried 0 2000 [id number] Luis Felipeaught (CON) complet ed typhoid vaccine, parentera l, other than acetone-k illed, dried DoD influenza virus vaccine, split virus (incl. purified surface antigen)-reti red CODE 1 1998 Unknown, Provider [id number] 15 Yashirat (CON) complet ed influenza virus vaccine, split virus (incl. purified surface antigen)- retired CODE DoD influenza virus vaccine, whole virus 0 [id number] 16 Luis Felipeaught (CON) complet ed influenza virus vaccine, whole virus DoD influenza virus vaccine, split virus (incl. purified surface antigen)-reti red CODE 1 1997 Unknown, Provider [id number] 15 Jalen (SUSANNA) complet ed influenza virus vaccine, split virus (incl. purified surface antigen)- retired CODE DoD influenza virus vaccine, whole virus 0 [id number] 16 Jalen (SUSANNA) complet ed influenza virus vaccine, whole virus DoD hepatitis A vaccine, adult dosage 2 1997 [id number] Merck (MSD) complet ed hepatitis A vaccine, adult dosage DoD measles, mumps and rubella virus vaccine 0 1997 [id number] Unknown (UNK) comple t ed measles, mumps and rubella virus vaccine DoD meningococcal polysaccharid e vaccine (MPSV4) 0 1997 [id number] Unknown (UNK) comple t ed meningoco [...] antigen)-reti red CODE 1 1997 Unknown, Provider [id number] 15 [employer] (CON) complet ed influenza virus vaccine, split virus (incl. purified surface antigen)- retired CODE DoD influenza virus vaccine, whole virus 0 1997 [id number] 16 [employer] (CON) complet ed influenza virus vaccine, whole virus DoD hepatitis A vaccine, adult dosage 1 1997 [id number] Merck (MSD) complet ed hepatitis A vaccine, adult dosage DoD yellow fever vaccine 0 1996 [id number] Unknown (UNK) comple t ed yellow [...] ADM Date DC Date Status Disposition Source [address] [place] [address] Medicine 0073) OUTPATIENT [id number] cut hand over weekend , needs RTFS PIERRE AYALA 02/01 Released w/o Limitations [employer](F light Medicin e 0073) [employer]([facility] Medicine [facility]) OUTPATIENT [id number] annual fly pha NATTY GARDNER Nubia 07/12 Released w/o Limitations [employer]([facility] light Medic[facility] e Clinic) [employer]([facility] Medicine [facility]) OUTPATIENT [id number] [facility] IFEANYI Graham Porfirio 07/15 Released w/o Limitations [employer](F light Medicin e Clinic) [employer]([place] [address]) OUTPATIENT [id number] infecti on on R finger PIERRE AYALA 01/19 Released w/o Limitations [employer](F light Medicin e 0073) [employer]([facility] Medicine [facility]) OUTPATIENT [id number] POLI DA SILVA 07/12 Released w/o Limitations [employer](F light Medicin e 0073) [employer]([facility] Medicine [facility]) OUTPATIENT [id number] Notes Entered by: Romulo LLOYD 19 Jun 2011 0752 ------- ------- ------- ------- -- RYAN Tran 06/19 Released w/o Limitations [employer](F light Medicin e 0073) [employer]([facility] Medicine [facility]) OUTPATIENT [id number] RYAN TRIMBLE 11/16 Released w/o Limitations [employer](F light Medicin e 0073) [employer](E[facility] Card [facility] (Tech Only)) OUTPATIENT [id number] ekg/SONDRA Leiva 11/17 Released w/o Limitations [employer](E KG Card Lab (Tech Only)) [employer](Car diology Procedure Clinic) OUTPATIENT [id number] Notes Entered by: RALEIGH BARDALES 19 Nov 2011 0947 ------- ------- ------- ------- -- Walkin per FLAQUITO Woodruff 11/18 Released w/o Limitations [employer](C ardiolo gy Procedu re Clinic) [employer](EKG Card Lab (Tech Only)) OUTPATIENT [id number] echo/bj ROXY Nunn 11/18 Released w/o Limitations [employer](E KG Card Lab (Tech Only)) [employer](Car diology Procedure Clinic) OUTPATIENT [id number] echo FLAQUITO Paul 11/18 Released w/o Limitations [employer](C ardiolo gy Procedu re Clinic) [employer](EKG Card Lab (Tech Only)) OUTPATIENT [id number] Notes Entered by: NIYA ANGELES 20 Nov 2011 0820 ------- ------- ------- ------- -- ekg/ko a SONDRA LAL 11/19 Released w/o Limitations [employer](E KG Card Lab (Tech Only)) [employer](Fli t Medicine 0073) OUTPATIENT [id number] RTFS RYAN JOSHI 12/09 Released w/o Limitations [employer](F light Medicin e 0073) [employer](Fli t Medicine 0073) TELE CONSULT [id number] Notes Entered by: GREER PORTILLO 16 Dec 2011 1744 ------- ------- ------- ------- -- Labs RYAN JOSHI 12/15 [employer](F light Medicin e 0073) [employer](Fli t Medicine 0073) OUTPATIENT [id number] [address] SHOAIB FLETCHER 01/31 Released w/o Limitations [employer](F light Medicin e 0073) [employer](Fli t Medicine 0073) OUTPATIENT [id number] Notes Entered by: STEVE HOWELL I 29 Feb 2012 0829 ------- ------- ------- ------- -- Back px ADI RYAN Paz 02/28 Released w/o Limitations [employer](F light Medicin e 0073) [facility] Medicine 0073) TELE CONSULT [id number] Notes Entered by: GREER PORTILLO 11 Oct 2012 1533 ------- ------- ------- ------- -- Refill prescri ption meds RYAN JOSHI 10/11 [facility](F light Medicin e 0073) Procedures Combined list of: 1) Procedures from Department of Veterans Affairs facilities going back up to thelast 18 months, not all VA non-surgical procedures are included; 2) All procedures from the Department of Defense facilities. Procedure Procedure Type Code Date Perfomer Comments [facility] e ELECTROCARDIOGRAM, ROUTINE ECG WITH AT LEAST 12 LEADS; WITH INTERPRETATION AND REPORT 11/20/2011 [facility] ECHOCARDIOGRAPHY,TRANSTHORAC I C,REAL-TIME W IMAGE DOCUMENTATION (2D),INCLUDES M-MODE RECORDING,WHEN PERFORMED,COMPLETE,WITH SPECTRAL DOPPLER ECHOCARDIOGRAPHY,AND W COLOR FLOW DOPPLER ECHOCARDIOGRAPHY 11/19/2011 [facility] ELECTROCARDIOGRAM, ROUTINE ECG WITH AT LEAST 12 LEADS; WITH INTERPRETATION AND REPORT 11/18/2011 [facility] SIMPLE REPAIR OF SUPERFICIAL WOUNDS OF SCALP, NECK, AXILLAE, EXTERNAL GENITALIA, TRUNK AND/OR EXTREMITIES (INCLUDING HANDS AND FEET); 2.5 CM OR LESS 01/30/2006 [facility] Social History Combined list of available smoking, tobacco, and other social history from Department of Defense and Veterans Affairs facilities. Social History Type Response Date Comment [facility] e This section is an empty social history section. [facility]D
--- OUTSIDE RECORDS SUMMARY | 2024-01-21 06:24 | XMS_ITS | Referral Summary ---
Author Organization [facility] Address [address] [place] [address] Care Team Providers Care Tube Backer Name Role Phone Unavailable Primary Care Provider Unavailabl e Source Comments Patient records contain information from all sites at [facility]. For routine questions regarding patient records, call [phone] during business hours, M-F 8:00 AM - 5:00 PM Central Time. Record requests for emergency care only can be directed to [phone] at any time.[facility] Encounters Date Type Department Care Team Description 12/13/2023 Clinical Communication Department of Radiation Oncology in [address] [address] Des Dillard M.D. 11/29/2023 Clinical Communication Department of Radiation Oncology in [address] [address] Des Dillard M.D. from Last 3 Months [...] (09/08/2018): Added automatically from request for surgery [id number] Primary Malignant Neoplasm Of Prostate 7 Cancer [...] drink = 0.6 oz pu re alcohol) [facility] Utilities Answer Date Recorded In the past 12 months has [employer], [employer], oil, or water [employer] threatened to shut off services in your home? No 06/06/2023 Social Connection and Isolation Panel [NHANES] A nswer Date Recorded In a typical week, how many times do you talk on the phone with family, friends, or neighbors? Three times a week 11/01/2019 How often do you get togethe r with friends or relatives? Never 11/01/2019 How often do you attend [facility] or episcopalian services? Never 11/01/2019 Do you belong to any clubs o r organizations such as samaritan groups, unions, fraternal or athletic groups, or [...] and heating? Not hard at all 11/01/2019 [facility] of Occupat ional [facility] - Occupational Stress Questionnaire Answer Date Recorded [...] your living situation today? I have a [facility] place to live 06/06/2023 Education Answer Date Recorded What is the highest level of school you have completed or the highest degree you have received? Bachelor's degree (e.g., BA, AB, BS) 11/01/2019 Sex and Gender Information Value Date Recorded Sex Assigned at Male 06/06/2023 10:42 PM PARACHUTE HARNESS RIGGER Gender Identity Male 11/01/2019 10:26 PM CDT Sexual Orientation Straight 11/01/2019 10 :26 PM CDT Last Filed Vital Signs Vital Sign Reading Time Taken Comments Blood Pressure 120/80 08/18/2023 2:17 PM CDT Pulse 91 08/18/2023 2:17 PM CDT Temperature 35.7 ??C (96.3 ??F) 09/09/2023 1:56 PM CD T Respiratory Rate 19 10/05/2018 1:10 PM CDT Oxygen Saturation 96% 06/15/2023 3:02 PM PARACHUTE HARNESS RIGGER Inhaled Oxygen Concentration - - Weight 125 kg (275 lb 9.2 oz) 09/09/2023 1:56 PM CDT Height 178.2 cm (5' 10.16) 10/04/2018 2:08 PM C DT Body Mass Index 39.36 10/04/2018 2:08 PM CDT Plan of Treatment Upcoming Encounters Date Type Department Care Team (Latest Contact Info) Description 02/10/2024 10:30 AM CDT Clinical Communication Virtual Review in [place], [place] [address] [place] [address] 02/14/2024 2:30 PM CDT Appointment Department of Radiation Oncology in [place], [place] [address] [place] [phone] Des Dillard M.D. [address] [place] [address] Medical Devices Implanted Type Area Monotype Caster Device Identifier Shelf Expiration Date Model / Serial / Lot Knee Implant Knee Implant Bilateral : Knee Procedures Procedure Name Priority Date/Time Associated Diagnosis Comments LIPID PANEL, S Routine 06/30/2023 9:40 AM PARACHUTE HARNESS RIGGER Primary Malignant Neoplasm Of Prostate (HCC) Rising [...] * (ABNORMAL) Lipid Panel (06/30/2023 9:40 AM PARACHUTE HARNESS RIGGER) Triglycerides 201(H) mg/dL 06/30/2023 10:30 AM PARACHUTE HARNESS RIGGER DTL Comment: ----REFERENCE VALUE---- Normal: <150 mg/dL Borderline High: 150-199 mg/dL High: 200-499 mg/dL Very High: > or =500 mg/dL Cholesterol, Total 208(H) mg/dL 2023 10:30 AM PARACHUTE HARNESS RIGGER DTL Comment: ----REFERENCE VALUE---- Desirable: < 200 mg/dL Borderline High: 200 - 239 mg/dL High: > or = 240 mg/dL Cholesterol, LDL, Calculated 126 mg/dL 06/30/2023 10:30 AM PARACHUTE HARNESS RIGGER DTL Comment: ----REFERENCE VALUE---- Desirable: <100 mg/dL Above Desirable: 100-129 mg/dL Borderline High: 130-159 mg/dL High: 160-189 mg/dL Very High: >=190 mg/dL ----ADDITIONAL INFORMATION---- LDL cholesterol calculated using the León/NIH equation. Cholesterol, HDL, S 46 >=40 mg/dL 06/30/2023 10:30 AM PARACHUTE HARNESS RIGGER DTL Cholesterol, Non-HDL, Calculated 162(H) mg/dL 06/30/2023 10:30 AM PARACHUTE HARNESS RIGGER DTL Comment: ----REFERENCE VALUE---- Desirable: <130 mg/dL Above Desirable: 130-159 mg/dL Borderline High: 160-189 mg/dL High: 190-219 mg/dL Very High: > or =220 mg/dL Fasting (8 HR or more) Yes 06/30/2023 10:05 AM PARACHUTE HARNESS RIGGER DTL Blood (Blood, Venous) 06/30/2023 9:40 AM PARACHUTE HARNESS RIGGER 06/30/2023 10:05 AM PARACHUTE HARNESS RIGGER Issa Vazquez M.D. LAB BLOOD ADD-ON Performing Organization Address City/[facility]/ZIP Co de Phone Number [facility] [address] DTL [facility] [address] [place] [address] * Hemoglobin A1c (10/04/2018 3:09 PM CDT) Hemoglobin A1c, B 5.4 4.0 - 5.6 % 10/04/2018 3:35 PM CDT [facility] Blood (Blood, Venous) 10/04/2018 3:09 PM CDT 10/04/2018 3:17 PM CDT Honorio Luna M.D. LAB BLOOD ADD-ON Performing Organization Address City/[facility]/ZIP Co de Phone Number [facility] [address] * Potassium (10/04/2018 3:08 PM CDT) Potassium, S 4.6 3.6 - 5.2 mmol/L 10/04/2018 4:18 PM CDT [facility] Blood (Blood, Venous) 10/04/2018 3:08 PM CDT 10/04/2018 3:16 PM CDT Honorio M Bierle M.D. LAB BLOOD ADD-ON [facility] [address] [place], [place] [address] * Creatinine with Estimated GFR (10/04/2018 3:08 PM CDT) Creatinine 0.76 0.74 - 1.35 mg/dL 10/04/2018 4:18 PM CDT [facility] eGFR-Non Black/ >90 >=60 mL/min/BSA 10/04/2018 4:18 PM CDT [facility] Comment: ----ADDITIONAL INFORMATION---- Estimated GFR calculated using the 2009 CKD_EPI creatinine equation. eGFR-Black/Afri can Romanian >90 >=60 mL/min/BSA 10/04/2018 4:18 PM CDT [facility] Comment: ----ADDITIONAL INFORMATION---- Estimated GFR calculated using the 2009 CKD_EPI creatinine equation. Blood (Blood, Venous) 10/04/2018 3:08 PM CDT 10/04/2018 3:16 PM CDT Honorio Luna M.D. LAB BLOOD ADD-ON [facility] [address] [place], [place] [address] from Last 3 Months or Most Recently Relevant to Health Maintenance Advance Directives For more information, please contact: [phone] * Full Code (Latest Code Status on File) Date Activated Date Inactivated Comments 10/05/2018 10:14 AM 10/05/2018 3:34 PM Question Answer Comments Full Code: Discussed
--- OUTSIDE RECORDS SUMMARY | 2024-01-21 06:24 | XMS_ITS | Encounter Summary ---
Author Organization [facility] Address [address] [place] [address] Care Team Providers Care Coal Unloader Name Role Phone Unavailable Primary Care Provider Unavailabl e Encounter Details Date Type Department Care Team (Late st Contact Info) Description 11/29/2023 Clinical Communication Department of Radiation Oncology in [place], [place] [address] [place] [phone] Des Dillard M.D. [address] [place] [address] Social History Tobacco Use Types Packs/Day Years Used Date Smoking Tobacco: Never Smokeless Tobacco: Former Chew Quit: 2013 Alcohol Use Standard Drinks/Week Comments Not Currently 21 (1 standard drink = 0.6 oz pu re alcohol) [facility] Utilities Answer Date Recorded In the past 12 months has [employer], [employer], oil, or water [employer] threatened to shut off services in your [...] often do you attend chur ch or anglican services? Never 11/01/2019 Do you belong to any clubs o r organizations such as mandaen groups, unions, fraternal or athletic groups, or [...] and heating? Not hard at all 11/01/2019 [facility] of Occupat ional Health - Occupational Stress [...] your living situation today? I have a [facility] place to live 06/06/2023 Education Answer Date Recorded What is the highest level of school you have completed or the highest degree you have received? Bachelor's degree (e.g., BA, AB, BS) 11/01/2019 Sex and Gender Information Value Date Recorded Sex Assigned at Male 06/06/2023 10:42 PM BACK END ENGINEER Gender Identity Male 11/01/2019 10:26 PM CDT Sexual Orientation Straight 11/01/2019 10 :26 PM CDT documented as of this encounter Plan of Treatment Upcoming Encounters Date Type Department Care Team (Latest Contact Info) Description 02/10/2024 10:30 AM CDT Clinical Communication Virtual Review in [place], [place] [address] [place] [address] 02/14/2024 2:30 PM CDT Appointment Department of Radiation Oncology in [place] [address] [place] [address] Des Dillard M.D. [address] [place] [address] documented as of this encounter Visit Diagnoses Not on filedocumented in this encounter
--- OUTSIDE RECORDS SUMMARY | 2024-01-21 06:24 | XMS_ITS | Clinical Summary ---
Author Organization [facility] Address [place], [place] [address] Care Team Providers Care Weight Trainer Name Role Phone Atiya Lewis Primary Care Provider Pamela Murrell RN Unavailable [phone] Luciano Ni Unavailable [phone] Issa Goodwin MD Unavailable Unavailable Allergies No known active allergies Medications Medication Sig Dispensed Refills Start Date End Date Status Omeprazole 20 mg tabletIndications :Gastroesophageal reflux disease, esophagitis presence not specified Take 1 tablet by mouth once daily. 90 tablet 1 07/10/19 16 Active Graduated Compression StockingsIndicati ons:Venous insufficiency 20-30 mm/Hg calf high or thigh high compression stockings - Venous insufficiency 8 Packet 06/09/19 22 Active Graduated Compression StockingsIndicati ons:Bilateral leg edema For personal use. Length: calf Strength: 20-30 mmHg 2 Packet 12/02/19 22 Active valACYclovir (VALTREX) 500 mg tabletIndications :HSV-2 (herpes simplex virus 2) infection Take 1 Tablet (500 mg) by mouth two times daily. Takes as needed 30 Tablet 1 04/14/20 23 Active benzonatate (TESSALON) 200 mg capsuleIndication s:Cough, unspecified type Take 1 Capsule (200 mg) by mouth 3 times daily if needed for Cough. 21 Capsule 05/05/20 23 Active tadalafiL (CIALIS;ADCIRCA) 20 mg tabletIndications :Impotence of organic origin TAKE 1/2 TABLET ONCE DAILY IF NEEDED FOR ERECTILE DYSFUNCTION. TAKE 30 MINUTES BEFORE SEXUAL ACTIVITY 24 Tablet 2 07/26/19 24 Active gabapentin (NEURONTIN) 300 mg capsuleIndication s:Sacroiliac joint disease Take 1 Capsule (300 mg) by mouth at bedtime. 90 Capsule 09/06/19 24 Active amLODIPine (NORVASC) 10 mg tabletIndications :Essential hypertension Take 1 Tablet (10 mg) by mouth once daily. 90 Tablet 2 10/27/19 24 Active venlafaxine (EFFEXOR XR) 150 mg Extended-Release capsuleIndication s:Adjustment disorder, unspecified type TAKE 2 CAPSULES ONCE DAILY WITH A MEAL 180 Capsule 1 11/09/19 24 Active CPAPIndications:O SA (obstructive sleep apnea) RESMED CPAP (E0601) machine for home use at pressure: 11 cmw, Choice of mask (A7030 or A7034) w/full face cushion (A7031) x1/mo, nasal cushion (A7032) x2/mo, or nasal pillows (A7033) x 2/mo; Length of Need: 99 months; Frequency of use: Daily 1 Each 12/23/19 24 Active losartan (COZAAR) 100 mg tabletIndications :Elevated BP without diagnosis of hypertension TAKE 1 TABLET ONCE DAILY 90 Tablet 01/12/20 24 Active CPAPIndications:O SA (obstructive sleep apnea) CPAP machine for home use at pressure 5-16 cmw, nasal mask x1/3month with nasal cushion x2/mo 1 Device 12/04/19 21 024 Discontinued(*M ed complete/Regime n complete/Level of care change) CPAPIndications:O SA (obstructive sleep apnea) CPAP machine for home [...] months, Frequency of use: Daily 1 Device 12/04/19 21 024 Discontinued(*M ed complete/Regime n complete/Level of care change) losartan (COZAAR) 100 mg tabletIndications :Elevated BP without diagnosis of hypertension TAKE 1 TABLET ONCE DAILY 90 Tablet 10/13/19 24 024 Discontinued Active Problems Problem Noted Date Diagnosed Date Alcoholism 12/06/2023 KORY 04/12/2018 AHI-52 with hypoxemia 04/25/2018 Unspecified adjustment reaction 06/21/2014 Adenomatous colon polyp 06/13/2014 Overview (02/13/2022): Colonoscopy 06/2014 polyps repeat in 5 years Colonoscopy 02/2022 normal, repeat in 7-10 years Prostate cancer 12/25/2013 S/P prostatectomy 12/25/2013 Elevated BP 05/16/2008 Encounters Date Type Department Care Team Description 01/17/2024 11:45 AM CDT Office Visit [facility] [address] [place] [address] Paris Interiano, [facility] Health Intake 01/17/2024 Travel 01/14/2024 Travel 01/13/2024 3:30 PM CDT Ancillary Procedure [facility] [address] [place] [address] 01/13/2024 Travel 01/10/2024 Refill [facility] [address] [place] [address] Atiya Lewis PA Refill Request (Losartan) 12/28/2023 Telephone [facility] [address] [place] [address] Isma Colón MD 12/28/2023 Medical Messaging [facility] [address] [place] [address] Atiya Lewis PA My Back 12/23/2023 2:30 PM CDT Office Visit [facility] [address] [place] [address] Alberto Solano MD Sleep Follow-up 12/23/2023 Travel 12/16/2023 2:15 PM CDT Ancillary Procedure [facility] [address] [facility] [address] [place] [address] 12/16/2023 Travel 12/06/2023 3:00 PM CDT Ancillary Procedure [facility] [address] [place] [address] 12/06/2023 1:00 PM CDT Office Visit [facility] [address] [place] [address] Atiya Lewis PA Pain (Pain all over, mostly in joints and hips into L leg. / worse in the past few months); Finger Pain/problem (Trigger finger in both ring fingers); Medication Management (Antidepressants - ) 12/06/2023 Travel 11/29/2023 Orders Only [facility] [address] [place] [address] Atiya Lewis PA Outside Order (Ordered by Dr. Des Dillard) 11/07/2023 Refill [facility] [place] [address] Atiya Lewsi PA Refill Request (Venlafaxine) 10/25/2023 Refill [facility] [address] [place] [address] Atiya Lewis PA Refill Request (Amlodipine) from Last 3 Months Immunizations Name Administration Dates Next Due COVID-19 vaccine (Greenmonster-Kili ([place]) NTech 30mcg/0.3mL) 12YO+ BIVALENT PF, MDV 02/13/2022 COVID-19 vaccine (Greenmonster-Bio NTech 30mcg/0.3mL) PF, MDV 04/21/2021,08/30/2020,08/13/2020 Hepatitis A [...] T Respiratory Rate 17 04/08/2020 4:30 PM MAJOR ACCOUNT MANAGER Oxygen Saturation 97% 12/23/2023 2:32 PM CDT Inhaled Oxygen Concentration - - Weight 123.6 kg (272 lb 6.4 oz) 12/23/2023 2:32 PM CDT Height 177 cm (5' 9.69) 12/23/2023 2:32 PM CDT Body Mass Index 39.43 12/23/2023 2:32 PM CDT Plan of Treatment Upcoming Encounters Date Type Department Care Team (Late st Contact Info) Description 01/21/2024 2:00 PM CDT Ancillary Procedure [facility] [address] [place] [phone] 01/28/2024 11:20 AM CDT Office Visit [facility] [address] [place] [phone] Isma Colón MD [address] [place] [address] 02/16/2024 2:15 PM CDT Office Visit [facility] [address] [place] [phone] [place] Interiano [facility] [address] [place] [address] 02/21/2024 1:30 PM CDT Office Visit [facility] [address] [place] [phone] [place] Inter[facility] [address] [place] [address] 03/01/2024 4:00 PM CDT Office Visit [facility] [address] [facility] [place] [phone] [place] Interiano [facility] [address] [place] [address] 03/08/2024 1:30 PM CDT Office Visit [facility] [address] [facility] [place] [phone] [place] Interiano [facility] [address] [facility] [place] [address] 03/29/2024 1:00 PM MAJOR ACCOUNT MANAGER Office Visit [facility] [address] [place] [address] Alberto Solano MD [address] [place] [address] Health Maintenance Due Date Last Done Comments Pneumococcal series for age 6-64 (1 of 2 - PCV) 1966 HIV for age 15-65 10/31/1975 Hepatitis C screening for ag e 18-79 1978 Depression screening for age 12+ 04/03/2021 04/03/2020, 04/02/2020, 02/02/2019, Additional history exists COVID-19 vaccine series (2022- season) 2024 03/15/2023, 02/13/2022, 10/10/2021, Additional history exists Influenza for age 50-64 01/09/2024 04/14/20, 02/13/2022, 02/15/2021, Additional history exists BMI (ht [...] Name Priority Date/Time Associated Diagnosis Comments MR HEAD BRAIN WO Routine 01/13/2024 3:35 PM CDT Central apnea MR SPINE LUMBAR WO Routine 12/16/2023 2: [...] Relevant to Health Maintenance Results * MR HEAD BRAIN WO (01/13/2024 3:35 PM CDT) Anatomical Region Laterality Modality BRAIN, HEAD Magnetic Resonan ce 01/14/2024 8:14 AM CDT Narrative 01/14/2024 8:14 AM CDT For Patients: ??As a result of the Century Cures Act, medical imaging exams and procedure reports are released immediately into your electronic medical record. ??You may view this report before your referring provider. ??If you have questions, please contact your health care provider. Indication: Central apnea. Technique: Multiplanar, multisequence MRI of the brain was performed without intravenous contrast. Comparison: None relevant available. Findings: The corpus callosum, pituitary gland and clivus appear intact. Mild degenerative change visualized upper cervical spine. There is no restricted diffusion. No intracranial hemorrhage. The ventricles are proportionate to the cerebral sulci. The 4th ventricle appears midline. The basal cisterns appear patent. No abnormal extra-axial fluid collection identified. Mild parenchymal volume loss. Scattered T2 FLAIR hyperintense foci within the subcortical and periventricular white matter, favored to represent chronic ischemic microvascular disease. There is no intracranial mass, abnormal mass-effect or midline shift identified. Major intracranial vascular flow voids appear grossly intact. Both globes are preserved. Impression: 1. No acute intracranial process. 2. Minimal chronic ischemic microvascular disease. Dictated by Erick Murphy MD @ 01/14/2024 8:14:02 AM (Electronically Signed) Procedure Note Erick Murphy, DO - 01/14/2024 For Patients: As a result of the Century Cures Act, medical imagingexams and procedure reports are released immediately into your electronicmedical record. You may view this report before your referring provider.If you have questions, please contact your health care provider. Indication: Central apnea. Technique: Multiplanar, multisequence MRI of the brain was performed withoutintravenous contrast. Comparison: None relevant available. Findings: The corpus callosum, pituitary gland and clivus appear intact. Milddegenerative change visualized upper cervical spine. There is no restricted diffusion. No intracranial hemorrhage. The ventricles are proportionate to the cerebral sulci. The 4th ventricleappears midline. The basal cisterns appear patent. No abnormal extra-axialfluid collection identified. Mild parenchymal volume loss. Scattered T2 FLAIR hyperintense foci withinthe subcortical and periventricular white matter, favored to representchronic ischemic microvascular disease. There is no intracranial mass, abnormal mass-effect or midline shiftidentified. Major intracranial vascular flow voids appear grossly intact. Both globesare preserved. Impression: 1. No acute intracranial process. 2. Minimal chronic ischemic microvascular disease. Dictated by Erick Murphy MD @ 01/14/2024 8:14:02 AM (Electronically Signed) Alberto Solano MD MR * MR SPINE LUMBAR WO (12/16/2023 2:40 [...] For Patients: As a result of the 21st Century Cures Act, medical imagingexams and procedure reports [...] 100 - 199 mg/dL 09/05/2022 8:36 AM CDT [facility] ([facility]) Triglycerides 150(H) 0 - 149 mg/dL 09/05/2022 8:36 AM [facility] ([facility]) HDL Cholesterol 55 >39 mg/dL 8:36 AM [facility] ([facility]) VLDL Cholesterol Philipp 27 5 - 40 mg/dL 09/05/2022 8:36 AM [facility] ([facility]) LDL Chol Calc ([facility]) 128(H) 0 - 99 mg/dL 09/05/2022 8:36 AM [facility] ([facility]) T. Chol/HDL Ratio 3.8 0.0 - 5.0 ratio 09/05/2022 8:36 AM [facility] (CET) Comment: ?T. Chol/HDL Ratio ?Men ??Women ?1/2 Avg.Risk ??3.4 ?3.3 ?Avg.Risk ??5.0 ?4.4 ? 2X Avg.Risk ??9.6 ?7.1 ? 3X Avg.Risk 23.4 ?? 11.0 Blood BLOOD SPECIMEN / Unknown Venipuncture / Unknown 09/02/2022 3:55 PM CDT 09/02/2022 3:56 PM CDT Narrative [facility] (CET) - 09/05/2022 8:36 AM CDT Performed at: ??01 - [facility] Christiano Vicampo [facility], [place], [place] ??[id number] Optical Effects Line Up Person: Manoj Laura MD, Phone: ??[phone] Atiya JARQUIN [facility] (CET) [facility] [place] [address], * COLONOSCOPY (02/13/2022 11:30 AM CDT) 02/13/2022 [...] adequate candidate for conscious sedation. The endoscope [id number] was passed through the anus andadvanced to [...] 11:30 AM Procedure Code(s): --- Professional --- 48066, Colonoscopy, flexible; diagnostic, including collection of specimen(s) bybrushing or washing, when performed (separateprocedure) Diagnosis Code(s): --- Professional --- Z86.010, Personal history of colonicpolyps CPT copyright 2020 [employer]. All rights reserved. The codes documented in this report are preliminary and upon data coder operator reviewmay be revised to meet current compliance [...] 1:53 PM 12/20/2013 3:24 PM Care Teams Weight Trainer Relationship Specialty Start Date End Date Atiya Lewis PA [facility] [place] [address] PCP - General Family Practice 06/20/13 Pamela Murrell, JASON [address] [address] Registered Nurse 12/08/13 Luciano Ni MBBS [address] [place] [address] Surgery - Urology 12/08/13 Issa Goodwin MD [address] [place] [address] Urology Surgery - Urology 03/15/19
--- OUTSIDE RECORDS SUMMARY | 2024-01-21 06:24 | XMS_ITS ---
Author Organization [facility] Address [address] [place] [address] Care Team Providers Care Thread Twister Name Role Phone Unavailable Primary Care Provider Unavailabl e Active Problems Problem Noted Date Diagnosed Date Hyperglycemia 10/04/2018 Rising Prostate Specific Ant igen Following Treatment For Malignant Cancer Of Prostate 09/08/2018 Overview (09/08/2018): Added automatically from request for surgery [id number] Primary Malignant Neoplasm Of Prostate 7 Cancer Staging:Pathologic stage from 12/18/2013:Stage IIB(T2c, N0, cM0, PSA: 10 to 19, [place] 7) - Unsigned Apnea Sleep Obstructive Overview [...] Treated Prescribed Fraction Dose Prescribed Total Dose [id number] 09/09/2023 43 7 of 7 215 cGy 1,505 cGy [id number] 08/31/2023 34 25 of 25 215 cGy 5,375 cGy Reference Point Last Treated On Elapsed Days Session Dose Total Dose [id number] 09/09/2023 43 215 cGy 6,880 cGy Resolved Problems Problem Noted Date Diagnosed Date Resolved Date Alcohol Mild Use Disorder (Jami zacarias) Uncomplicated 10/04/2018 10/04/2018
[2024-01-21] MEDS: BUPIVACAINE 0.5% 30 ML INJECTION ×2 (07:00→07:38)
[2024-01-21] MEDS: LIDOCAINE 1% MDV INJECTION (07:00)
--- NOTE | 2024-01-21 07:13 | P.ORPRC_ITS ---
Procedure Note Date of procedure: 01/21/24 Procedure: PREOPERATIVE DIAGNOSIS: 1. Right ring finger trigger digit POSTOPERATIVE DIAGNOSIS: 1. Right ring trigger digit PROCEDURE: 1. Right ring trigger (A1 sparkle) release SURGEON: Hussain Drew MD. PLATING TANK OPERATOR APPRENTICE: Jannie Herrera An hair assistant was critical for this case to aid in patient positioning, tissue retraction, limb manipulation/positioning, and closure. ANESTHESIA: Local anesthetic IMPLANTS: None TOURNIQUET: For min at 250 mmHg COMPLICATIONS: None INDICATIONS: The patient is a pleasant 63-year-old male who has history of right ring finger pain and triggering. Symptoms did not improve with conservative management. Patient subsequently elected to proceed with surgical intervention consisting of right ring finger A1 sparkle release. Prior to surgery risks and benefits were discussed with patient all questions were answered informed consent was obtained. DESCRIPTION OF PROCEDURE: Patient was seen preoperatively and operative site was marked. Subcutaneous tissues overlying the right ring finger A1 sparkle were injected with combination of 1% lidocaine and 0.5% bupivacaine. Patient was then brought to the operating room placed in supine position on the OR table. A tourniquet was placed on the patient's right arm and right upper extremity was prepped and draped in usual sterile fashion. A surgical time-out was performed confirming patient name, procedure, and location. Operative extremity was then elevated and exsanguinated with an Esmarch, and tourniquet was inflated to 250 mmHg. A skin incision measuring approximately 1 cm was made longitudinally over the A1 sparkle of the right ring. Blunt dissection was used to dissect through subcutaneous tissues. The underlying flexor tendons and A1 sparkle were identified and retractors were used to protect the neurovascular structures. The A1 sparkle was then released using a tenotomy scissor. After complete release of the A1 sparkle, the patient was asked to flex and extend their fingers, and no active triggering was noted. Tourniquet was th en released and hemostasis was achieved with bipolar electrocautery. Total tourniquet time was for minutes. Wound was the irrigated with normal saline. Skin incision was closed with 4-0 nylon horizontal mattress sutures, and a sterile dressing was applied. Patient was then transferred to the recovery room in stable condition. POSTOPERATIVE PLAN: 1. Patient will be discharged to home day of surgery. 2. They were given instructions for wound care and finger range of motion exercises. 3. Return to the clinic for follow-up evaluation in 10-14 days for wound check and suture removal.
--- NOTE | 2024-01-21 07:13 | W.PM.H&PU ---
History & Physical Update History & Physical Update H&P Reviewed and patient assessed: No changes noted
[2024-01-21] MEDS: LIDOCAINE 1 % PF 30 ML INJECTION (07:15)
--- NOTE | 2024-01-21 08:08 | SUR.PREOP ---
SAME DAY SURGERY LOCAL INJECTION SITE VERIFICATION WAS PERFORMED BY SURGEON/PA AND PATIENT PRIOR TO LOCAL ANESTHETIC BEING INJECTED TO OPERATIVE SITE.
== END 2024-01-21 08:04 | disposition home or self-care (01) ==
LOC: OR 06:22
PROVIDERS: PCP Physician Assistant Medical; Visit Provider Orthopaedic Surgery
PROC: (CPT 26055; principal; 2024-01-21 07:30)
DX: M65.341 Trigger finger, right ring finger (principal)
CPT/HCPCS: 26055; J0665; J2001

== ENCOUNTER 2024-01-28 10:00 | Outpatient (CLI) | payer BC, SELFPAY ==
--- OUTSIDE RECORDS SUMMARY | 2024-01-28 10:04 | XMS_ITS | Clinical Summary ---
Author Organization [facility] Address [address] [place] [address] Care Team Providers Care Clinical Veterinarian Name Role Phone Unavailable Primary Care Provider Unavailabl e Source Comments Patient records contain information from all sites at [facility]. For routine questions regarding patient records, call [phone] during business hours, M-F 8:00 AM - 5:00 PM Central Time. Record requests for emergency care only can be directed to [phone] at any time.[facility] Allergies No known active allergies Medications Medication [...] (09/08/2018): Added automatically from request for surgery [id number] Primary Malignant Neoplasm Of Prostate 7 Cancer Staging:Pathologic stage from 12/18/2013:Stage IIB(T2c, N0, cM0, PSA: 10 to 19, [place] 7) - Unsigned Apnea Sleep Obstructive Overview (10/04/2018): Compliant with CPAP use Hypertension NOS Thromboembolism NOS Overview (10/04/2018): Left, superficial Gastroesophageal Reflux Disease NOS Resolved Problems Problem Noted Date Diagnosed Date Resolved Date Alcohol Mild Use Disorder (A buse) Uncomplicated 10/04/2018 10/04/2018 Encounters Date Type Department Care Team Description 12/13/2023 Clinical Communication Department of Radiation Oncology in [address] [address] Des Dillard M.D. 11/29/2023 Clinical Communication Department of Radiation Oncology in [address] [address] Des Dillard M.D. from Last 3 Months Family History Medical History Relation Name Comments Cancer Neg Hx Social History Tobacco Use Types Packs/Day Years Used Date Smoking Tobacco: Never Smokeless Tobacco: Former Chew Quit: 2013 Tobacco Cessation:Counseling Given: Not Answered Alcohol Use Standard Drinks/Week Comments Not Currently 21 (1 standard drink = 0.6 oz pu re alcohol) [facility] Utilities Answer Date Recorded In the past 12 months has [employer], gas, oil, or water [employer] threatened to shut off services in your home? No 06/06/2023 Social Connection and Isolation Panel [NHANES] A nswer Date Recorded In a typical week, how many times do you talk on the phone with family, friends, or neighbors? Three times a week 11/01/2019 How often do you get togethe r with friends or relatives? Never 11/01/2019 How often do you attend [facility] or gnosticist services? Never 11/01/2019 Do you belong to any clubs o r organizations such as zoroastrianism groups, unions, fraternal or athletic groups, or [...] and heating? Not hard at all 11/01/2019 [facility] of Occupat ional Health - Occupational [...] your living situation today? I have a [facility] place to live 06/06/2023 Education Answer Date Recorded What is the highest level of school you have completed or the highest degree you have received? Bachelor's degree (e.g., BA, AB, BS) 11/01/2019 Sex and Gender Information Value Date Recorded Sex Assigned at Male 06/06/2023 10:42 PM MANAGER SWITCH Gender Identity Male 11/01/2019 10:26 PM CDT Sexual Orientation Straight 11/01/2019 10 :26 PM CDT Last Filed Vital Signs Vital Sign Reading Time Taken Comments Blood Pressure 120/80 08/18/2023 2:17 PM CDT Pulse 91 08/18/2023 2:17 PM CDT Temperature 35.7 ??C (96.3 ??F) 09/09/2023 1:56 PM CD T Respiratory Rate 19 10/05/2018 1:10 PM CDT Oxygen Saturation 96% 06/15/2023 3:02 PM MANAGER SWITCH Inhaled Oxygen Concentration - - Weight 125 kg (275 lb 9.2 oz) 09/09/2023 1:56 PM CDT Height 178.2 cm (5' 10.16) 10/04/2018 2:08 PM C DT Body Mass Index 39.36 10/04/2018 2:08 PM CDT Plan of Treatment Upcoming Encounters Date Type Department Care Team (Latest Contact Info) Description 02/10/2024 10:30 AM CDT Clinical Communication Virtual Review in [place], [place] [address] [place] [address] 02/14/2024 2:30 PM CDT Appointment Department of Radiation Oncology in [place], [place] [address] [place] [phone] Des Dillard M.D. [address] [place] [address] Health Maintenance Due Date Last Done Comments CT Colonography 1960 Cologuard 1960 FIT 1960 HIV Screening 1960 Hepatitis C Screening 1960 Office Visit for Blood Pressure Check / Re-check 1960 Pneumococcal vaccine (0-64 years) (1 of 2 - PCV) 1966 Depression Screening (Annual PHQ-2) 05/10/2023 COVID-19 Vaccine ( season) 2024 03/15/2023, 02/13/2022, 10/10/2021, Additional history exists Influenza Vaccine (#1) 2024 , 02/13/2022, 02/15/2021, Additional history exists Creatinine Level (Kidney Function Test) 04/14/2024 04/14/2023, 09/02/2022, 10/29/2021, Additional history exists Fasting Glucose for Diabetes Screening 04/14/2024 04/14/2023, 09/02/2022, 03/11/2021, Additional history exists Potassium Level 04/14/2024 04/14/2023, 2 10/2022, 03/11/2021, Additional history exists Sodium Level 04/14/2024 04/14/2023, 04/2 10/2022, 03/11/2021, Additional history exists Lipid (Cholesterol) Screening 06/30/2024 06/30/2023, 09/02/2022, 03/11/2021, Additional history exists DTaP,Tdap,and Td Vaccines (3 - Td or Tdap) 04/20/2026 04/20/2016, 05/21/2007 Colonoscopy 02/14/2032 02/13/2022 Colorectal Cancer Screening 02/14/2032 Zoster Vaccines Completed 09/09/2022, 03/15/2019 HPV Vaccines Aged Out No longer eligi ble based on patient's age to complete this topic Medical Devices Implanted Type Area Provider Relations Advocate Device Identifier Shelf Expiration Date Model / Serial / Lot Knee Implant Knee Implant Bilateral : Knee Procedures Procedure Name Priority Date/Time Associated Diagnosis Comments LIPID PANEL, S Routine 06/30/2023 9:40 AM MANAGER SWITCH Primary Malignant Neoplasm Of Prostate (HCC) Rising [...] * (ABNORMAL) Lipid Panel (06/30/2023 9:40 AM MANAGER SWITCH) Triglycerides 201(H) mg/dL 06/30/2023 10:30 AM MANAGER SWITCH DTL Comment: ----REFERENCE VALUE---- Normal: <150 mg/dL Borderline High: 150-199 mg/dL High: 200-499 mg/dL Very High: > or =500 mg/dL Cholesterol, Total 208(H) mg/dL 2023 10:30 AM MANAGER SWITCH DTL Comment: ----REFERENCE VALUE---- Desirable: < 200 mg/dL Borderline High: 200 - 239 mg/dL High: > or = 240 mg/dL Cholesterol, LDL, Calculated 126 mg/dL 06/30/2023 10:30 AM MANAGER SWITCH DTL Comment: ----REFERENCE VALUE---- Desirable: <100 mg/dL Above Desirable: 100-129 mg/dL Borderline High: 130-159 mg/dL High: 160-189 mg/dL Very High: >=190 mg/dL ----ADDITIONAL INFORMATION---- LDL cholesterol calculated using the León/NIH equation. Cholesterol, HDL, S 46 >=40 mg/dL 06/30/2023 10:30 AM MANAGER SWITCH DTL Cholesterol, Non-HDL, Calculated 162(H) mg/dL 06/30/2023 10:30 AM MANAGER SWITCH DTL Comment: ----REFERENCE VALUE---- Desirable: <130 mg/dL Above Desirable: 130-159 mg/dL Borderline High: 160-189 mg/dL High: 190-219 mg/dL Very High: > or =220 mg/dL Fasting (8 HR or more) Yes 06/30/2023 10:05 AM MANAGER SWITCH DTL Blood (Blood, Venous) 06/30/2023 9:40 AM MANAGER SWITCH 06/30/2023 10:05 AM MANAGER SWITCH Issa Vazquez M.D. LAB BLOOD ADD-ON [facility] [address] D[address] [facility] [address] [place] [address] * Hemoglobin A1c (10/04/2018 3:09 PM CDT) Hemoglobin A1c, B 5.4 4.0 - 5.6 % 10/04/2018 3:35 PM CDT [facility] Blood (Blood, Venous) 10/04/2018 3:09 PM CDT 10/04/2018 3:17 PM CDT Honorio Luna M.D. LAB BLOOD ADD-ON Performing Organization Address [facility] Co de Phone Number [facility] [address] * Potassium (10/04/2018 3:08 PM CDT) Potassium, S 4.6 3.6 - 5.2 mmol/L 10/04/2018 4:18 PM CDT [facility] Blood (Blood, Venous) 10/04/2018 3:08 PM CDT 10/04/2018 3:16 PM CDT Honorio Luna M.D. LAB BLOOD ADD-ON Performing Organization Address City/[facility]/ZIP Co de Phone Number [facility] [address] * Creatinine with Estimated GFR (10/04/2018 3:08 PM CDT) Creatinine 0.76 0.74 - 1.35 mg/dL 10/04/2018 4:18 PM CDT [facility] eGFR-Non Black/ >90 >=60 mL/min/BSA 10/04/2018 4:18 PM CDT [facility] Comment: ----ADDITIONAL INFORMATION---- Estimated GFR calculated using the 2009 CKD_EPI creatinine equation. eGFR-Black/Afri can Nepalese >90 >=60 mL/min/BSA 10/04/2018 4:18 PM CDT [facility] Comment: ----ADDITIONAL INFORMATION---- Estimated GFR calculated using the 2009 CKD_EPI creatinine equation. Blood (Blood, Venous) 10/04/2018 3:08 PM CDT 10/04/2018 3:16 PM CDT Honorio Luna M.D. LAB BLOOD ADD-ON [facility] [address] from Last 3 Months or Most Recently Relevant to Health Maintenance Advance Directives For more information, please contact: [phone] * Full Code (Latest Code Status on File) Date Activated Date Inactivated Comments 10/05/2018 10:14 AM 10/05/2018 3:34 PM Question Answer Comments Full Code: Discussed
--- OUTSIDE RECORDS SUMMARY | 2024-01-28 10:04 | XMS_ITS ---
Author Organization [facility] Address [address] [place] [address] Care Team Providers Care Turbine Operator Name Role Phone Unavailable Primary Care Provider Unavailabl e Active Problems Problem Noted Date Diagnosed Date Hyperglycemia 10/04/2018 Rising Prostate Specific Ant igen Following Treatment For Malignant Cancer Of Prostate 09/08/2018 Overview (09/08/2018): Added automatically from request for surgery [id number] Primary Malignant Neoplasm Of Prostate 7 Cancer Staging:Pathologic stage from 12/18/2013:Stage IIB(T2c, N0, cM0, PSA: 10 to 19, [place] 7) - Unsigned Apnea Sleep Obstructive Overview [...] Treated Prescribed Fraction Dose Prescribed Total Dose [id number] S 09/09/2023 43 7 of 7 215 cGy 1,505 cGy [id number] 08/31/2023 34 25 of 25 215 cGy 5,375 cGy Reference Point Last Treated On Elapsed Days Session Dose Total Dose [id number] 09/09/2023 43 215 cGy 6,880 cGy Resolved Problems Problem Noted Date Diagnosed Date Resolved Date Alcohol Mild Use Disorder (Jami zacarias) Uncomplicated 10/04/2018 10/04/2018
--- OUTSIDE RECORDS SUMMARY | 2024-01-28 10:04 | XMS_ITS ---
Author Organization [facility] Address [address] [place] [address] Care Team Providers Care Strip Mill Operator Name Role Phone Unavailable Unavailable Unavailable Surgery Details Not on file Complications Check Surgery Details section. Procedure Estimated Blood Loss Check Surgery Details section. Procedure Findings Check Surgery Details section. Procedure Specimens Taken Check Surgery Details section.
--- OUTSIDE RECORDS SUMMARY | 2024-01-28 10:04 | XMS_ITS | Referral Summary ---
Author Organization [facility] Address [address] [place] [address] Care Team Providers Care Skiver Machine Name Role Phone Unavailable Primary Care Provider Unavailabl e Source Comments Patient records contain information from all sites at [facility]. For routine questions regarding patient records, call [phone] during business hours, M-F 8:00 AM - 5:00 PM Central Time. Record requests for emergency care only can be directed to [phone] at any time.[facility] Encounters Date Type Department Care Team Description 12/13/2023 Clinical Communication Department of Radiation Oncology in [address] [address] Des Dillard M.D. 11/29/2023 Clinical Communication Department of Radiation Oncology in [address] [address] Des Dillard M.D. from Last 3 Months [...] (09/08/2018): Added automatically from request for surgery [id number] Primary Malignant Neoplasm Of Prostate 7 Cancer [...] drink = 0.6 oz pu re alcohol) [facility] Utilities Answer Date Recorded In the past 12 months has [employer], [employer], oil, or water [employer] threatened to shut off services in your home? No 06/06/2023 Social Connection and Isolation Panel [NHANES] A nswer Date Recorded In a typical week, how many times do you talk on the phone with family, friends, or neighbors? Three times a week 11/01/2019 How often do you get togethe r with friends or relatives? Never 11/01/2019 How often do you attend [facility] or pentecostal services? Never 11/01/2019 Do you belong to any clubs o r organizations such as anabaptism groups, unions, fraternal or athletic groups, or [...] and heating? Not hard at all 11/01/2019 [facility] of Occupat ional [facility] - Occupational Stress Questionnaire Answer Date Recorded [...] your living situation today? I have a [facility] place to live 06/06/2023 Education Answer Date Recorded What is the highest level of school you have completed or the highest degree you have received? Bachelor's degree (e.g., BA, AB, BS) 11/01/2019 Sex and Gender Information Value Date Recorded Sex Assigned at Male 06/06/2023 10:42 PM ELECTRICAL AND INSTRUMENT TECHNICIAN Gender Identity Male 11/01/2019 10:26 PM CDT Sexual Orientation Straight 11/01/2019 10 :26 PM CDT Last Filed Vital Signs Vital Sign Reading Time Taken Comments Blood Pressure 120/80 08/18/2023 2:17 PM CDT Pulse 91 08/18/2023 2:17 PM CDT Temperature 35.7 ??C (96.3 ??F) 09/09/2023 1:56 PM CD T Respiratory Rate 19 10/05/2018 1:10 PM CDT Oxygen Saturation 96% 06/15/2023 3:02 PM ELECTRICAL AND INSTRUMENT TECHNICIAN Inhaled Oxygen Concentration - - Weight 125 kg (275 lb 9.2 oz) 09/09/2023 1:56 PM CDT Height 178.2 cm (5' 10.16) 10/04/2018 2:08 PM C DT Body Mass Index 39.36 10/04/2018 2:08 PM CDT Plan of Treatment Upcoming Encounters Date Type Department Care Team (Latest Contact Info) Description 02/10/2024 10:30 AM CDT Clinical Communication Virtual Review in [place], [place] [address] [place] [address] 02/14/2024 2:30 PM CDT Appointment Department of Radiation Oncology in [place], [place] [address] [place] [phone] Des Dillard M.D. [address] [place] [address] Medical Devices Implanted Type Area Rouge Presser Device Identifier Shelf Expiration Date Model / Serial / Lot Knee Implant Knee Implant Bilateral : Knee Procedures Procedure Name Priority Date/Time Associated Diagnosis Comments LIPID PANEL, S Routine 06/30/2023 9:40 AM ELECTRICAL AND INSTRUMENT TECHNICIAN Primary Malignant Neoplasm Of Prostate (HCC) Rising [...] * (ABNORMAL) Lipid Panel (06/30/2023 9:40 AM ELECTRICAL AND INSTRUMENT TECHNICIAN) Triglycerides 201(H) mg/dL 06/30/2023 10:30 AM ELECTRICAL AND INSTRUMENT TECHNICIAN DTL Comment: ----REFERENCE VALUE---- Normal: <150 mg/dL Borderline High: 150-199 mg/dL High: 200-499 mg/dL Very High: > or =500 mg/dL Cholesterol, Total 208(H) mg/dL 2023 10:30 AM ELECTRICAL AND INSTRUMENT TECHNICIAN DTL Comment: ----REFERENCE VALUE---- Desirable: < 200 mg/dL Borderline High: 200 - 239 mg/dL High: > or = 240 mg/dL Cholesterol, LDL, Calculated 126 mg/dL 06/30/2023 10:30 AM ELECTRICAL AND INSTRUMENT TECHNICIAN DTL Comment: ----REFERENCE VALUE---- Desirable: <100 mg/dL Above Desirable: 100-129 mg/dL Borderline High: 130-159 mg/dL High: 160-189 mg/dL Very High: >=190 mg/dL ----ADDITIONAL INFORMATION---- LDL cholesterol calculated using the León/NIH equation. Cholesterol, HDL, S 46 >=40 mg/dL 06/30/2023 10:30 AM ELECTRICAL AND INSTRUMENT TECHNICIAN DTL Cholesterol, Non-HDL, Calculated 162(H) mg/dL 06/30/2023 10:30 AM ELECTRICAL AND INSTRUMENT TECHNICIAN DTL Comment: ----REFERENCE VALUE---- Desirable: <130 mg/dL Above Desirable: 130-159 mg/dL Borderline High: 160-189 mg/dL High: 190-219 mg/dL Very High: > or =220 mg/dL Fasting (8 HR or more) Yes 06/30/2023 10:05 AM ELECTRICAL AND INSTRUMENT TECHNICIAN DTL Blood (Blood, Venous) 06/30/2023 9:40 AM ELECTRICAL AND INSTRUMENT TECHNICIAN 06/30/2023 10:05 AM ELECTRICAL AND INSTRUMENT TECHNICIAN Issa Vazquez M.D. LAB BLOOD ADD-ON Performing Organization Address City/[facility]/ZIP Co de Phone Number [facility] [address] DTL [facility] [address] [place] [address] * Hemoglobin A1c (10/04/2018 3:09 PM CDT) Hemoglobin A1c, B 5.4 4.0 - 5.6 % 10/04/2018 3:35 PM CDT [facility] Blood (Blood, Venous) 10/04/2018 3:09 PM CDT 10/04/2018 3:17 PM CDT Honorio Luna M.D. LAB BLOOD ADD-ON Performing Organization Address City/[facility]/ZIP Co de Phone Number [facility] [address] * Potassium (10/04/2018 3:08 PM CDT) Potassium, S 4.6 3.6 - 5.2 mmol/L 10/04/2018 4:18 PM CDT [facility] Blood (Blood, Venous) 10/04/2018 3:08 PM CDT 10/04/2018 3:16 PM CDT Honorio M Bierle M.D. LAB BLOOD ADD-ON [facility] [address] [place], [place] [address] * Creatinine with Estimated GFR (10/04/2018 3:08 PM CDT) Creatinine 0.76 0.74 - 1.35 mg/dL 10/04/2018 4:18 PM CDT [facility] eGFR-Non Black/ >90 >=60 mL/min/BSA 10/04/2018 4:18 PM CDT [facility] Comment: ----ADDITIONAL INFORMATION---- Estimated GFR calculated using the 2009 CKD_EPI creatinine equation. eGFR-Black/Afri can Tunisian >90 >=60 mL/min/BSA 10/04/2018 4:18 PM CDT [facility] Comment: ----ADDITIONAL INFORMATION---- Estimated GFR calculated using the 2009 CKD_EPI creatinine equation. Blood (Blood, Venous) 10/04/2018 3:08 PM CDT 10/04/2018 3:16 PM CDT Honorio Luna M.D. LAB BLOOD ADD-ON [facility] [address] [place], [place] [address] from Last 3 Months or Most Recently Relevant to Health Maintenance Advance Directives For more information, please contact: [phone] * Full Code (Latest Code Status on File) Date Activated Date Inactivated Comments 10/05/2018 10:14 AM 10/05/2018 3:34 PM Question Answer Comments Full Code: Discussed
--- OUTSIDE RECORDS SUMMARY | 2024-01-28 10:05 | XMS_ITS | Encounter Summary ---
Author Organization [facility] Address [address] [place] [address] Care Team Providers Care Electrical Appliance Preparer Name Role Phone Unavailable Primary Care Provider Unavailabl e Encounter Details Date Type Department Care Team (Late st Contact Info) Description 12/13/2023 Clinical Communication Department of Radiation Oncology in [place], [place] [address] [place] [phone] Des Dillard M.D. [address] [place] [address] Social History Tobacco Use Types Packs/Day Years Used Date Smoking Tobacco: Never Smokeless Tobacco: Former Chew Quit: 2013 Alcohol Use Standard Drinks/Week Comments Not Currently 21 (1 standard drink = 0.6 oz pu re alcohol) [facility] Utilities Answer Date Recorded In the past 12 months has [employer], [employer], oil, or water [employer] threatened to shut off services in your [...] often do you attend chur ch or scientologist services? Never 11/01/2019 Do you belong to any clubs o r organizations such as scientologist groups, unions, fraternal or athletic groups, or [...] and heating? Not hard at all 11/01/2019 [facility] of Occupat ional Health - Occupational Stress [...] your living situation today? I have a [facility] place to live 06/06/2023 Education Answer Date Recorded What is the highest level of school you have completed or the highest degree you have received? Bachelor's degree (e.g., BA, AB, BS) 11/01/2019 Sex and Gender Information Value Date Recorded Sex Assigned at Male 06/06/2023 10:42 PM GUEST SERVICES Gender Identity Male 11/01/2019 10:26 PM CDT [...] that we fax the following information to [employer], Attn: Staci Crouch . Recent office note, current medical status, medical limitations, current medications. Hussain said he can be contacted with any questions. documented in this encounter Plan of Treatment Upcoming Encounters Date Type Department Care Team (Latest Contact Info) Description 02/10/2024 10:30 AM CDT Clinical Communication Virtual Review in [place], [place] [address] [place] [address] 02/14/2024 2:30 PM CDT Appointment Department of Radiation Oncology in [place], [place] [address] [place] [address] Des Dillard M.D. [address] [place] [address] documented as of this encounter Visit Diagnoses Not on filedocumented in this encounter
--- OUTSIDE RECORDS SUMMARY | 2024-01-28 10:05 | XMS_ITS | Encounter Summary ---
Author Organization [facility] Address [address] [place] [address] Care Team Providers Care Development Technical Lead Name Role Phone Unavailable Primary Care Provider Unavailabl e Encounter Details Date Type Department Care Team (Late st Contact Info) Description 11/29/2023 Clinical Communication Department of Radiation Oncology in [place], [place] [address] [place] [address] Des Dillard M.D. [address] [place] [address] Social History Tobacco Use Types Packs/Day Years Used Date Smoking Tobacco: Never Smokeless Tobacco: Former Chew Quit: 2013 Alcohol Use Standard Drinks/Week Comments Not Currently 21 (1 standard drink = 0.6 oz pu re alcohol) [facility] Utilities Answer Date Recorded In the past 12 months has [employer], oil, or water [employer] threatened to shut off services in your [...] often do you attend chur ch or jainism services? Never 11/01/2019 Do you belong to any clubs o r organizations such as christian groups, unions, fraternal or athletic groups, or [...] and heating? Not hard at all 11/01/2019 [facility] - Occupational Stress [...] your living situation today? I have a [facility] place to live 06/06/2023 Education Answer Date Recorded What is the highest level of school you have completed or the highest degree you have received? Bachelor's degree (e.g., BA, AB, BS) 11/01/2019 Sex and Gender Information Value Date Recorded Sex Assigned at Male 06/06/2023 10:42 PM ASSOCIATE PASTOR Gender Identity Male 11/01/2019 10:26 PM CDT Sexual Orientation Straight 11/01/2019 10 :26 PM CDT documented as of this encounter Plan of Treatment Upcoming Encounters Date Type Department Care Team (Latest Contact Info) Description 02/10/2024 10:30 AM CDT Clinical Communication Virtual Review in [place], [place] [address] [place] [address] 02/14/2024 2:30 PM CDT Appointment Department of Radiation Oncology in [place] [address] [place] [id number] Des Dillard M.D. [address] [place] [address] documented as of this encounter Visit Diagnoses Not on filedocumented in this encounter
--- OUTSIDE RECORDS SUMMARY | 2024-01-28 10:05 | XMS_ITS | Continuity of Care Document ---
Author Name [facility] Organization [facility] Care Team Providers Care Lease Picker Name Role Phone [facility] Unavailable Unavailable Problems Combined list of problems [...] Site Reaction Lot Number CVX Code Drug Facilities Specialist Status Comments Source Influenza, seasonal, injectable, preservative free 15 2011 Unknown, Provider [id number] [facility] [employer] (CSL) complet ed Influenza , seasonal, injectabl e, preservat essence free DoD typhoid Vi capsular polysaccharid e vaccine 6 2011 Unknown, Provider [id number] Sanofi Pasteur ([facility]) complet ed typhoid Vi capsular polysacch aride vaccine DoD Influenza, seasonal, injectable, preservative free 1 2010 Unknown, Provider [id number] Sanofi Pasteur ([facility]) complet ed Influenza , seasonal, injectabl e, preservat essence free DoD influenza virus vaccine, split virus (incl. purified surface antigen)-reti red CODE 1 2009 Unknown, Provider [id number] 15 Sanofi Pasteur ([facility]) complet ed influenza virus vaccine, split virus (incl. purified surface antigen)- retired CODE DoD hepatitis B vaccine, adult dosage 3 2009 Unknown, Provider [id number] 43 [facility] hepatitis B vaccine, adult dosage DoD typhoid Vi capsular polysaccharid e vaccine 1 2009 Unknown, Provider [id number] 101 Sanofi Pasteur ([facility]) complet ed typhoid Vi capsular polysacch aride vaccine DoD varicella virus vaccine 2 2009 Unknown, Provider [id number] Merck (MSD) complet ed varicella virus vaccine DoD hepatitis B vaccine, adult dosage 2 2009 Unknown, Provider [id number] 43 [facility] ([facility]) complet ed hepatitis B vaccine, adult dosage DoD varicella virus vaccine 1 2009 Unknown, Provider [id number] Merck (MSD) complet ed varicella virus vaccine DoD hepatitis B vaccine, adult dosage 1 2009 Unknown, Provider [id number] 43 [facility] (B) complet ed hepatitis B vaccine, adult dosage DoD Novel influenza-H1N 1-09, injectable 1 2009 Unknown, Provider [id number] 127 Novartis [employer]. (NOV) complet ed Novel influenza -Q5K6-31, injectabl e DoD influenza virus vaccine, split virus (incl. purified surface antigen)-reti red CODE 1 2008 Unknown, Provider [id number] 15 [employer] (CSL) complet ed influenza virus vaccine, split virus (incl. purified surface antigen)- retired CODE DoD influenza virus vaccine, split virus (incl. purified surface antigen)-reti red CODE 1 2007 Unknown, Provider [id number] 15 [employer] (CSL) complet ed influenza virus vaccine, split virus (incl. purified surface antigen)- retired CODE DoD yellow fever vaccine 1 2007 Unknown, Provider [id number] Sanofi Pasteur ([facility]) complet ed yellow fever vaccine DoD meningococcal polysaccharid e (groups A, C, Y and W-135) diphtheria toxoid conjugate vaccine (MCV4P) 1 2007 Unknown, Provider [id number] [facility] complet ed meningoco ccal polysacch aride (groups A, C, Y and W-135) diphtheri a toxoid conjugate vaccine (MCV4P) DoD typhoid Vi capsular polysaccharid e vaccine 1 2007 Unknown, Provider [id number] [facility]) complet ed typhoid Vi capsular polysacch aride vaccine DoD tetanus toxoid, reduced diphtheria toxoid, and acellular pertu is vaccine, adsorbed 1 2007 [id number] Sanofi Pasteur ([facility]) complet ed tetanus toxoid, reduced diphtheri a toxoid, and acellular pertussis vaccine, adsorbed DoD influenza virus vaccine, split virus (incl. purified surface antigen)-reti red CODE 1 2006 [id number] () complet ed influenza virus vaccine, split virus (incl. purified surface antigen)- retired CODE DoD influenza virus vaccine, split virus (incl. purified surface antigen)-reti red CODE 1 2006 [id number] 15 Sanofi Pasteur ([facility]) complet ed influenza virus vaccine, split virus (incl. purified surface antigen)- retired CODE DoD tuberculin skin test; purified protein derivative solution, intradermal 1 2006 Unknown, Provider [id number] Other (OTH) complet ed tuberculi n skin test; purified protein derivativ e solution, intraderm al DoD influenza virus vaccine, split virus (incl. purified surface antigen)-reti red CODE 1 2005 [id number] 15 Sanofi Pasteur ([facility]) complet ed influenza virus vaccine, split virus (incl. purified surface antigen)- retired CODE DoD typhoid Vi capsular polysaccharid e vaccine 1 2005 [id number] [facility]) complet ed typhoid Vi capsular polysacch aride vaccine DoD influenza virus vaccine, live, attenuated, for intranasal use 0 2004 [id number] [employer] (MED) complet ed influenza virus vaccine, live, attenuate d, for intranasa l use DoD influenza virus vaccine, split virus (incl. purified surface antigen)-reti red CODE 1 2002 Unknown, Provider [id number] 15 Jalen (SUSANNA) complet ed influenza virus vaccine, split virus (incl. purified surface antigen)- retired CODE DoD influenza virus vaccine, whole virus 0 2002 [id number] 16 Jalen (SUSANNA) complet ed influenza virus vaccine, whole virus DoD varicella virus vaccine 1 2002 21 () Not Given varicella virus vaccine DoD influenza virus vaccine, split virus (incl. purified surface antigen)-reti red CODE 1 2000 Unknown, Provider [id number] 15 Jalen (SUSANNA) complet ed influenza virus vaccine, split virus (incl. purified surface antigen)- retired CODE DoD influenza virus vaccine, whole virus 0 2000 [id number] 16 Jalen (SUSANNA) complet ed influenza virus vaccine, whole virus DoD typhoid vaccine, parenteral, other than acetone-kille d, dried 0 2000 [id number] Luis Felipeaught (CON) complet ed typhoid vaccine, parentera l, other than acetone-k illed, dried DoD influenza virus vaccine, split virus (incl. purified surface antigen)-reti red CODE 1 1998 Unknown, Provider [id number] 15 Yashirat (CON) complet ed influenza virus vaccine, split virus (incl. purified surface antigen)- retired CODE DoD influenza virus vaccine, whole virus 0 [id number] 16 [employer] (CON) complet ed influenza virus vaccine, whole virus DoD influenza virus vaccine, split virus (incl. purified surface antigen)-reti red CODE 1 1997 Unknown, Provider [id number] 15 Jalen (SUSANNA) complet ed influenza virus vaccine, split virus (incl. purified surface antigen)- retired CODE DoD influenza virus vaccine, whole virus 0 [id number] 16 Jalen (SUSANNA) complet ed influenza virus vaccine, whole virus DoD hepatitis A vaccine, adult dosage 2 1997 [id number] Merck (MSD) complet ed hepatitis A vaccine, adult dosage DoD measles, mumps and rubella virus vaccine 0 1997 [id number] 03 Unknown (UNK) comple t ed measles, mumps and rubella virus vaccine DoD meningococcal polysaccharid e vaccine (MPSV4) 0 1997 [id number] Unknown (UNK) comple t ed meningoco [...] antigen)-reti red CODE 1 1997 Unknown, Provider [id number] 15 [employer] (CON) complet ed influenza virus vaccine, split virus (incl. purified surface antigen)- retired CODE DoD influenza virus vaccine, whole virus 0 1997 [id number] 16 [employer] (CON) complet ed influenza virus vaccine, whole virus DoD hepatitis A vaccine, adult dosage 1 1997 [id number] Merck (MSD) complet ed hepatitis A vaccine, adult dosage DoD yellow fever vaccine 0 1996 [id number] Unknown (UNK) comple t ed yellow [...] ADM Date DC Date Status Disposition Source [address] [place] [address] Medicine 0073) OUTPATIENT [id number] cut hand over weekend , needs RTFS PIERRE AYALA 02/01 Released w/o Limitations [employer]([facility] Medic[facility] e 0073) [employer]([facility] Medicine [facility]) OUTPATIENT [id number] annual fly pha NATTY GARDNER Nubia 07/12 Released w/o Limitations [employer]([facility]) [employer]([facility] Medicine [facility]) OUTPATIENT [id number] [facility] IFEANYI Graham Porfirio 07/15 Released w/o Limitations [employer]([facility]) [employer]([place] [address]) OUTPATIENT [id number] infecti on on R finger PIERRE AYALA 01/19 Released w/o Limitations [employer]([facility] light Medicin e 0073) [employer]([facility] Medicine [facility]) OUTPATIENT [id number] POLI DA SILVA 07/12 Released w/o Limitations [employer]([facility] light Medicin e 0073) [employer]([facility] Medicine [facility]) OUTPATIENT [id number] Notes Entered by: Romulo LLOYD 19 Jun 2011 0752 ------- ------- ------- ------- -- RYAN Tran 06/19 Released w/o Limitations [employer]([facility] light Medicin e 0073) [employer]([facility]) OUTPATIENT [id number] RYAN TRIMBLE 11/16 Released w/o Limitations [employer](F light Medicin e 0073) [employer](EKG Card Lab (Tech Only)) OUTPATIENT [id number] ekg/SONDRA Leiva 11/17 Released w/o Limitations [employer](E KG Card Lab (Tech Only)) [employer]([facility]) OUTPATIENT [id number] Notes Entered by: RALEIGH BARDALES 19 Nov 2011 0947 ------- ------- ------- ------- -- Walkin per FLAQUITO Woodruff 11/18 Released w/o Limitations [employer](C ardiolo gy Procedu re Clinic) [employer](EKG Card Lab (Tech Only)) OUTPATIENT [id number] echo/bj ROXY Nunn 11/18 Released w/o Limitations [employer](E KG Card Lab (Tech Only)) [employer]([facility]) OUTPATIENT [id number] echo FLAQUITO Paul 11/18 Released w/o Limitations [employer](C ardiolo gy Procedu re Clinic) [employer](EKG Card Lab (Tech Only)) OUTPATIENT [id number] Notes Entered by: NIYA ANGELES 20 Nov 2011 0820 ------- ------- ------- ------- -- ekg/ko a SONDRA LAL 11/19 Released w/o Limitations [employer](E KG Card Lab (Tech Only)) [employer](Fli t Medicine 0073) OUTPATIENT [id number] RTFS RYAN JOSHI 12/09 Released w/o Limitations [employer](F light Medicin e 0073) [employer](Fli t Medicine 0073) TELE CONSULT [id number] Notes Entered by: GREER PORTILLO 16 Dec 2011 1744 ------- ------- ------- ------- -- Labs RYAN JOSHI 12/15 [employer](F light Medicin e 0073) [employer](Fli t Medicine 0073) OUTPATIENT [id number] [address] SHOAIB FLETCHER 01/31 Released w/o Limitations [employer](F light Medicin e 0073) [employer](Fli t Medicine 0073) OUTPATIENT [id number] Notes Entered by: STEVE HOWELL I 29 Feb 2012 0829 ------- ------- ------- ------- -- Back px COLETTERYAN SIMMONS Jackson 02/28 Released w/o Limitations [employer](F light Medicin e 0073) [facility] 0073) TELE CONSULT [id number] Notes Entered by: GREER PORTILLO 11 Oct 2012 1533 ------- ------- ------- ------- -- Refill prescri ption meds RYAN JOSHI Jackson 10/11 [facility](F light Medicin e 0073) Procedures Combined list of: 1) Procedures from Department of Veterans Affairs facilities going back up to thelast 18 months, not all VA non-surgical procedures are included; 2) All procedures from the Department of Defense facilities. Procedure Procedure Type Code Date Perfomer Comments [facility] ELECTROCARDIOGRAM, ROUTINE ECG WITH AT LEAST 12 LEADS; WITH INTERPRETATION AND REPORT 11/20/19 [facility] ECHOCARDIOGRAPHY,FRANCE STHORACIC,REAL-TIME W IMAGE DOCUMENTATION (2D),INCLUDES M-MODE RECORDING,WHEN PERFORMED,COMPLETE,WI SPECTRAL DOPPLER ECHOCARDIOGRAPHY,AND W COLOR FLOW DOPPLER ECHOCARDIOGRAPHY 11/19/19 [facility] ELECTROCARDIOGRAM, ROUTINE ECG WITH AT LEAST 12 LEADS; WITH INTERPRETATION AND REPORT 11/18/19 12 [facility] SIMPLE REPAIR OF SUPERFICIAL WOUNDS OF SCALP, NECK, AXILLAE, EXTERNAL GENITALIA, TRUNK AND/OR EXTREMITIES (INCLUDING HANDS AND FEET); 2.5 CM OR LESS 01/31/20 06 DoD Electrocardiogram Electrocardiogram 18618 11/19 12 [employer], SONDRA H DoD Echo Congenital Cardiac Defects Transthoracic W/ M-Mode, Spectral, & Color Flow Echo Congenital Cardiac Defects Transthoracic W/ M-Mode, Spectral, & Color Flow [id number] 11/19/19 12 ROXY RUBIO DoD Electrocardiogram Electrocardiogram 77741 11/17 12 [email or web address], SONDRA H DoD Social History Combined list of available smoking, tobacco, and other social history from Department of Defense and Veterans Affairs facilities. Social History Type Response Date Comment [facility] lakhwinder This section is an empty social history section. DoD
--- OUTSIDE RECORDS SUMMARY | 2024-01-28 10:05 | XMS_ITS | Clinical Summary ---
Author Organization [facility] Address [place], [place] [address] Care Team Providers Care Vacuum Tester Cans Name Role Phone Atiya Lewis Primary Care Provider Pamela Murrell RN Unavailable [phone] Luciano Ni Unavailable Issa Goodwin MD Unavailable Unavailable Allergies No known active allergies Medications Medication Sig Dispensed Refills Start Date End Date Status Omeprazole 20 mg tabletIndications :Gastroesophageal reflux disease, esophagitis presence not specified Take 1 tablet by mouth once daily. 90 tablet 1 6 Active Graduated Compression StockingsIndicati ons:Venous insufficiency 20-30 mm/Hg calf high or thigh high compression stockings - Venous insufficiency 8 Packet 2 Active Graduated Compression StockingsIndicati ons:Bilateral leg edema For personal use. Length: calf Strength: 20-30 mmHg 2 Packet 2 Active valACYclovir (VALTREX) 500 mg tabletIndications :HSV-2 (herpes simplex virus 2) infection Take 1 Tablet (500 mg) by mouth two times daily. Takes as needed 30 Tablet 1 3 Active benzonatate (TESSALON) 200 mg capsuleIndication s:Cough, unspecified type Take 1 Capsule (200 mg) by mouth 3 times daily if needed for Cough. 21 Capsule 3 Active tadalafiL (CIALIS;ADCIRCA) 20 mg tabletIndications :Impotence of organic origin TAKE 1/2 TABLET ONCE DAILY IF NEEDED FOR ERECTILE DYSFUNCTION. TAKE 30 MINUTES BEFORE SEXUAL ACTIVITY 24 Tablet 2 4 Active gabapentin (NEURONTIN) 300 mg capsuleIndication s:Sacroiliac joint disease Take 1 Capsule (300 mg) by mouth at bedtime. 90 Capsule 4 Active amLODIPine (NORVASC) 10 mg tabletIndications :Essential hypertension Take 1 Tablet (10 mg) by mouth once daily. 90 Tablet 2 4 Active venlafaxine (EFFEXOR XR) 150 mg Extended-Release capsuleIndication s:Adjustment disorder, unspecified type TAKE 2 CAPSULES ONCE DAILY WITH A MEAL 180 Capsule 1 4 Active CPAPIndications:O SA (obstructive sleep apnea) RESMED CPAP (E0601) machine for home use at pressure: 11 cmw, Choice of mask (A7030 or A7034) w/full face cushion (A7031) x1/mo, nasal cushion (A7032) x2/mo, or nasal pillows (A7033) x 2/mo; Length of Need: 99 months; Frequency of use: Daily 1 Each 11 4 Active losartan (COZAAR) 100 mg tabletIndications :Elevated BP without diagnosis of hypertension TAKE 1 TABLET ONCE DAILY 90 Tablet 4 Active losartan (COZAAR) 100 mg tabletIndications :Elevated BP without diagnosis of hypertension TAKE 1 TABLET ONCE DAILY 90 Tablet 4 01/12/20 24 Discontinued Active Problems Problem Noted Date Diagnosed Date Alcoholism 12/06/2023 KORY 04/12/2018 AHI-52 with hypoxemia 04/25/2018 Unspecified adjustment reaction 06/21/2014 Adenomatous colon polyp 06/13/2014 Overview (02/13/2022): Colonoscopy 06/2014 polyps repeat in 5 years Colonoscopy 02/2022 normal, repeat in 7-10 years Prostate cancer 12/25/2013 S/P prostatectomy 12/25/2013 Elevated BP 05/16/2008 Encounters Date Type Department Care Team Description 01/25/2024 Travel 01/21/2024 2:00 PM CDT Ancillary Procedure [facility] [address] [place] [address] 01/21/2024 Travel 01/17/2024 11:45 AM CDT Office Visit [facility] [address] [place] [address] [place] Interiano, [facility] Intake 01/17/2024 Travel 01/14/2024 Travel 01/13/2024 3:30 PM CDT Ancillary Procedure [facility] [address] [place] [address] 01/13/2024 Travel 01/10/2024 Refill [facility] [address] [place] [address] Atiya Lewis PA Refill Request (Losartan) 12/28/2023 Telephone [facility] [address] [place] [address] Isma Colón MD 12/28/2023 Medical Messaging [facility] [address] [place] [address] Atiya Lewis PA My Back 12/23/2023 2:30 PM CDT Office Visit [facility] [place] [address] Alberto Hall MD Sleep Follow-up 12/23/2023 Travel 12/16/2023 2:15 PM CDT Ancillary Procedure [facility] [address] [facility] [address] [place] [address] 12/16/2023 Travel 12/06/2023 3:00 PM CDT Ancillary Procedure [facility] [address] [place] [address] 12/06/2023 1:00 PM CDT Office Visit [facility] [address] [place] [address] Atiya Lewis PA Pain (Pain all over, mostly in joints and hips into L leg. / worse in the past few months); Finger Pain/problem (Trigger finger in both ring fingers); Medication Management (Antidepressants - ) 12/06/2023 Travel 11/29/2023 Orders Only [facility] [address] [place] [address] Atiya Lewis PA Outside Order (Ordered by Dr. Des Dillard) 11/07/2023 Refill [facility] [address] [facility] [address] Atiya Lewis PA Refill Request (Venlafaxine) from Last 3 Months Immunizations Name Administration Dates Next Due COVID-19 vaccine (Pfizer-Bio NTech 30mcg/0.3mL) 12YO+ BIVALENT PF, MDV 02/13/2022 COVID-19 vaccine (Pfizer-Bio NTech 30mcg/0.3mL) PF, MDV 04/21/2021,08/30/2020,08/13/2020 Hepatitis A [...] on file Sexual Orientation Not on file Travel History Travel Start Travel End [place] 01/24/2024 01/25/2024 Obstetrics History Last Filed Vital Signs Vital Sign Reading Time Taken Comments Blood Pressure 121/82 12/23/2023 2:32 PM CDT Pulse 94 12/23/2023 2:32 PM CDT Temperature 37.1 ??C (98.7 ??F) 05/05/2023 2:14 PM CS T Respiratory Rate 17 04/08/2020 4:30 PM GIS PROGRAMMER Oxygen Saturation 97% 12/23/2023 2:32 PM CDT Inhaled Oxygen Concentration - - Weight 123.6 kg (272 lb 6.4 oz) 12/23/2023 2:32 PM CDT Height 177 cm (5' 9.69) 12/23/2023 2:32 PM CDT Body Mass Index 39.43 12/23/2023 2:32 PM CDT Plan of Treatment Upcoming Encounters Date Type Department Care Team (Late st Contact Info) Description 01/28/2024 11:20 AM CDT Office Visit [facility] at [facility] [address] [facility] [place] [address] Isma Colón MD [address] [place] [address] Arrived 02/16/2024 2:15 PM CDT Office Visit [facility] [place] [phone] Paris Interiano [facility] [address] [place] [address] 02/21/2024 1:30 PM CDT Office Visit [facility] [address] [place] [address] [place] Interiano [facility] [address] [place] [address] 03/01/2024 4:00 PM CDT Office Visit [facility] [place] [phone] Paris Interiano [facility] [address] [place] [address] 03/08/2024 1:30 PM CDT Office Visit [facility] [place] [phone] [place] Interiano [facility] [address] [place] [address] 03/29/2024 1:00 PM GIS PROGRAMMER Office Visit [facility] [place] [address] Alberto Hall MD [address] [place] [address] Health Maintenance Due Date Last Done Comments [...] Procedure Name Priority Date/Time Associated Diagnosis Comments AMB EPIDURAL STEROID INJECTION Routine 01/28/2024 7:59 AM CDT Left leg pain Lumbar foraminal stenosis ECHO TTE COMPLETE WO CONTRAST SHANNAN 01/21/2024 3:08 PM CDT Central apnea MR HEAD BRAIN WO Routine 01/13/2024 3:35 [...] Recently Relevant to Health Maintenance Results * ECHO TTE COMPLETE WO CONTRAST (01/21/2024 3:08 PM CDT) AORTIC VALVE MEAN PG 7 mmHg EJECTION FRACTION 64 % PEAK TR VELOCITY 2.5 m/s LVEDD 4.6 cm Anatomical Region Laterality Modality Ultrasound 01/21/2024 2:13 PM CDT Narrative 01/21/2024 3:57 PM CDT ECHOCARDIOGRAM MANNY ORTIZ ? Accession#: ?? [id number] : ?1960 63 years Study Date: ?? 01/21/2024 2:13:35 PM Gender: M ?BP: ? 121/82 mmHg Height: 175.00 cm ?BSA: ?2.36 m? ? ? Weight: 124.00 kg ?Tech: ? MSR ? Referring MD: ALBERTO HALL Site: ? [facility] Reading Location: Mobile OP Patient Location: Outpatient. Procedure: 2D, Color Doppler and Spectral Doppler. Indication for study: Central apnea Cardiac Rhythm: Regular.Study quality: Fair. Final Impressions: 1. Normal left ventricular size, moderately increased wall thickness, normal global systolic function, calculated EF of 64 %. 2. The aortic valve is trileaflet and sclerotic, no stenosis and no regurgitation. 3. Mild-moderate tricuspid regurgitation. 4. Normal estimated pulmonary pressures by tricuspid regurgitation velocity and right atrial pressure (25 mmHg plus RAP). Comparison Compared to prior exam report of 08/19/16, there has been no significant change. Chamber Sizes and Function Normal left ventricular size, moderately increased wall thickness, normal global systolic function, calculated EF of 64 %. Left atrial size is normal. Left atrial pressure is normal. Right ventricular cavity size is normal, global systolic RV function is normal. RV wall thickness is normal. The right atrium is normal. The pulmonary artery is of normal size and origin. The sinus of Valsalva is normal sized. The ascending aorta is normal sized. Valves, RV Pressures and Diastolic Function The aortic valve is trileaflet and sclerotic, no stenosis and no regurgitation. The mitral valve is normal in structure, trace mitral regurgitation. Spectral Doppler shows Grade 1 pattern of LV diastolic filling. The tricuspid valve is normal in structure. Tricuspid regurgitation is mild-moderate. The tricuspid regurgitant velocity is 2.5 m/s, the estimated right ventricular systolic pressure is 25 mmHg plus right atrial pressure. There is normal estimated pulmonary pressure by tricuspid regurgitation velocity and right atrial pressure. The pulmonic valve is normal. No pulmonary regurgitation. Masses, Effusion, Shunts There is no pericardial effusion. The inferior vena cava is normal sized, respiratory size variation greater than 50%. No left to right shunting was detected by limited color flow Doppler interrogation of the interatrial septum. MEASUREMENTS AND CALCULATIONS 2-D Measurements and LV Function: LVID (d) 4.6 cm Planimetered EF 64 % LVID (s) 3.3 cm LV FS% (2D) ? 28 % IVS (d) ??1.4 cm LVOT diameter ?? 2.3 cm LVPW (d) 1.4 cm HR ?72 bpm Ao Sinus 3.7 cm LA Vol index ?25 ml/m2 Asc Ao ?? 3.6 cm RV Max 4C (d) ?? 5.0 cm Diastology: Mitral ?Tissue Doppler E Peak 0.7 m/s ??e', Septum ? 0.06 m/s A Peak 1.0 m/s ??e', Lateral ?0.12 m/s E/A ?0.7 ?E/e' Average ?? 7.63 DT ? 172 msec Aortic Valve: Vmax ? 1.8 m/s ??BRADFORD (V) ?? 3.12 cm? ? ? VTI ?0.34 m ?? BRADFORD (I) ?? 3.09 cm? ? ? LVOT V max 1.3 m/s ??Max PG ?12 mmHg LVOT VTI ?? 0.25 m ?? Mean PG ?? 7 mmHg SV ? 105 ml ?? Dim Index 0.73 SV index ?? 45 ml/m? ? ? CO ?7.6 l/min ?CI ?3.2 l/min/m? ? ? Mitral Valve: MVA ? 4.4 cm? ? ? MV P 1/2 ??50 msec MV Mean G 2 mmHg MV VTI ?0.23 m Tricuspid Valve and estimated PA pressures: TR Vmax 2.5 m/s TR maxG 25 mmHg . This study was interpreted by an [facility] accredited facility. ??Final ?? Procedure Note Mukesh Mcclure MD - 01/21/2024 ECHOCARDIOGRAM MANNY ORTIZ : 1960 63 years Study Date: 01/21/2024 2:13:35 PM Gender: M BP: 121/82 mmHg Height: 175.00 cm BSA: 2.36 m? ? ? Weight: 124.00 kg Tech: MSR Referring MD: ALBERTO HALL Site: [facility] Reading Location: Mobile OP Patient Location: Outpatient. Procedure: 2D, Color Doppler and Spectral Doppler. Indication for study: Central apnea Cardiac Rhythm: Regular.Study quality: Fair. Final Impressions: 1. Normal left ventricular size, moderately increased wall thickness,normal global systolic function, calculated EF of 64 %. 2. The aortic valve is trileaflet and sclerotic, no stenosis and noregurgitation. 3. Mild-moderate tricuspid regurgitation. 4. Normal estimated pulmonary pressures by tricuspid regurgitationvelocity and right atrial pressure (25 mmHg plus RAP). Comparison Compared to prior exam report of 08/19/16, there has been no significantchange. Chamber Sizes and Function Normal left ventricular size, moderately increased wall thickness, normalglobal systolic function, calculated EF of 64 %. Left atrial size isnormal. Left atrial pressure is normal. Right ventricular cavity size isnormal, global systolic RV function is normal. RV wall thickness isnormal. The right atrium is normal. The pulmonary artery is of normal sizeand origin. The sinus of Valsalva is normal sized. The ascending aorta isnormal sized. Valves, RV Pressures and Diastolic Function The aortic valve is trileaflet and sclerotic, no stenosis and noregurgitation. The mitral valve is normal in structure, trace mitralregurgitation. Spectral Doppler shows Grade 1 pattern of LV diastolicfilling. The tricuspid valve is normal in structure. Tricuspidregurgitation is mild-moderate. The tricuspid regurgitant velocity is 2.5m/s, the estimated right ventricular systolic pressure is 25 mmHg plusright atrial pressure. There is normal estimated pulmonary pressure bytricuspid regurgitation velocity and right atrial pressure. The pulmonicvalve is normal. No pulmonary regurgitation. Masses, Effusion, Shunts There is no pericardial effusion. The inferior vena cava is normal sized,respiratory size variation greater than 50%. No left to right shunting wasdetected by limited color flow Doppler interrogation of the interatrialseptum. MEASUREMENTS AND CALCULATIONS 2-D Measurements and LV Function: LVID (d) 4.6 cm Planimetered EF 64 % LVID (s) 3.3 cm LV FS% (2D) 28 % IVS (d) 1.4 cm LVOT diameter 2.3 cm LVPW (d) 1.4 cm HR 72 bpm Ao Sinus 3.7 cm LA Vol index 25 ml/m2 Asc Ao 3.6 cm RV Max 4C (d) 5.0 cm Diastology: Mitral Tissue Doppler E Peak 0.7 m/s e', Septum 0.06 m/s A Peak 1.0 m/s e', Lateral 0.12 m/s E/A 0.7 E/e' Average 7.63 DT 172 msec Aortic Valve: Vmax 1.8 m/s BRADFORD (V) 3.12 cm? ? ? VTI 0.34 m BRADFORD (I) 3.09 cm? ? ? LVOT V max 1.3 m/s Max PG 12 mmHg LVOT VTI 0.25 m Mean PG 7 mmHg SV 105 ml Dim Index 0.73 SV index 45 ml/m? ? ? CO 7.6 l/min CI 3.2 l/min/m? ? ? Mitral Valve: MVA 4.4 cm? ? ? MV P 1/2 50 msec MV Mean G 2 mmHg MV VTI 0.23 m Tricuspid Valve and estimated PA pressures: TR Vmax 2.5 m/s TR maxG 25 mmHg . This study was interpreted by an [facility] accredited facility. Final Alberto Hall MD ECHO ORD * MR HEAD BRAIN WO (01/13/2024 3:35 [...] @ 01/14/2024 8:14:02 AM (Electronically Signed) Alberto Hall MD MR * MR SPINE LUMBAR WO [...] - 199 mg/dL 09/05/2022 8:36 AM CDT [facility] Triglycerides 150(H) 0 - 149 mg/dL 09/05/2022 8:36 AM CDT [facility] HDL Cholesterol 55 >39 mg/dL 8:36 AM [facility] ([facility]) VLDL Cholesterol Philipp 27 5 - 40 mg/dL 09/05/2022 8:36 AM [facility] ([facility] LDL Chol Calc ([facility]) 128(H) 0 - 99 mg/dL 09/05/2022 8:36 AM [facility] ([facility]) T. Chol/HDL Ratio 3.8 0.0 - 5.0 ratio 09/05/2022 8:36 AM [facility] ([facility]) Comment: ?T. Chol/HDL Ratio ?Men ??Women ?1/2 Avg.Risk ??3.4 ?3.3 ?Avg.Risk ??5.0 ?4.4 ? 2X Avg.Risk ??9.6 ?7.1 ? 3X Avg.Risk 23.4 ?? 11.0 Blood BLOOD SPECIMEN / Unknown Venipuncture / Unknown 09/02/2022 3:55 PM CDT 09/02/2022 3:56 PM CDT [facility] ([facility]) - 09/05/2022 8:36 AM CDT Performed at: ??01 - [facility] [place] [facility], [place], [place] ??[id number] Radiology Physician: Manoj Laura MD, Phone: ??[phone] Atiya JARQUIN SEND OUTS [facility] ([facility]) [address] [place] [address], * COLONOSCOPY (02/13/2022 11:30 AM CDT) 02/13/2022 [...] adequate candidate for conscious sedation. The endoscope -[id number] was passed through the anus andadvanced to [...] 11:30 AM Procedure Code(s): --- Professional --- 54053, Colonoscopy, flexible; diagnostic, including collection of specimen(s) bybrushing or washing, when performed (separateprocedure) Diagnosis Code(s): --- Professional --- Z86.010, Personal history of colonicpolyps CPT copyright 2020 [employer]. All rights reserved. The codes documented in this report are preliminary and upon md psychiatry reviewmay be revised to meet current compliance [...] 1:53 PM 12/20/2013 3:24 PM Care Teams Vacuum Tester Cans Relationship Specialty Start Date End Date Atiya Lewis PA [facility][note 3] [place] [address] PCP - General Family Practice 06/20/13 Pamela Murrell, RN [address] [address] Registered Nurse 12/08/13 Luciano Ni MBBS [address] [place] [address] Surgery - Urology 12/08/13 Issa Goodwin MD [address] [place] [address] Urology Surgery - Urology 03/15/19
== END 2024-01-28 10:01 | disposition home or self-care (01) ==
LOC: INJ CL 10:01
PROVIDERS: PCP Physician Assistant Medical; Visit Provider Family Medicine
DX: M54.16 Radiculopathy, lumbar region (principal); M51.36 Other intervertebral disc degeneration, lumbar region
CPT/HCPCS: 62323; J0702; Q9966

== ENCOUNTER 2024-02-07 13:51 | Outpatient (CLI) | payer BC, SELFPAY ==
[2024-02-07 16:43] LABS: PSA Screen* < 0.06 ng/mL (0.10-4.00)
[2024-02-09 01:35] LABS: Testosterone, Adult Male <3 ng/dL (300-720)
== END 2024-02-07 13:52 | disposition home or self-care (01) ==
PROVIDERS: PCP Physician Assistant Medical; Visit Provider Internal Medicine
DX: C61 Malignant neoplasm of prostate (principal)
CPT/HCPCS: 36415; 84403; G0103

== ENCOUNTER 2024-04-17 21:05 | Outpatient (CLI) | payer BC, SELFPAY ==
--- OUTSIDE RECORDS SUMMARY | 2024-04-17 21:08 | XMS_ITS | Referral Summary ---
Author Organization [facility] Address [address] [place] [address] Care Team Providers Care Retention Specialist Name Role Phone None Reported, Pcp Primary Care Provider Unavail able Source Comments Patient records contain information from all sites at [facility]. For routine questions regarding patient records, call [phone] during business hours, M-F 8:00 AM - 5:00 PM Central Time. Record requests for emergency care only can be directed to [phone] at any time.[facility] Encounters * This document contains information received from the source organization and may not represent a complete record from that organization. Date Type Department Care Team Description 02/14/2024 2:18 PM CDT - 02/14/2024 6:37 PM CDT Hospital Encounter Department of Radiation Oncology in [place], [place] [address] [place] [phone] Des Dillard M.D. Rising Prostate Specific Antigen Following Treatment For Malignant Cancer Of Prostate (Primary Dx) 02/10/2024 10:30 AM CDT Clinical Communication Virtual Review in [place], [place] [address] [place] [address] Pre-visit Intake from Last 3 Months Allergies No known active allergies Medications * This document contains information received from the source organization and may not represent a complete record from that organization. amLODIPine (NORVASC) 10 mg tablet Take 1 tablet by mouth every morning. 7 Active losartan (COZAAR) 100 mg tablet Take 1 tablet by mouth every morning. 7 Active valACYclovir (VALTREX) 500 mg tablet Take 500 mg by mouth daily. 3 Active tadalafiL (CIALIS) 20 mg tablet TAKE 1/2 TABLET ONCE DAILY IF NEEDED FOR ERECTILE DYSFUNCTION TAKE 30 MINUTESBEFORE SEXUAL ACTIVITY 3 Active venlafaxine XR (EFFEXOR-XR) 150 mg 24 hr capsule Take 300 mg by mouth as needed. 3 Active Active Problems Problem Noted Date Diagnosed Date Hyperglycemia 10/04/2018 Rising Prostate Specific Ant igen Following Treatment For Malignant Cancer Of Prostate 09/08/2018 Overview (09/08/2018): Added automatically from request for surgery [id number] Primary Malignant Neoplasm Of Prostate 7 Cancer [...] drink = 0.6 oz pu re alcohol) [facility] Utilities Answer Date Recorded In the past 12 months has [employer], [employer], oil, or water [employer] threatened to shut off services in your home? No 06/06/2023 Social Connection and Isolation Panel [NHANES] A nswer Date Recorded In a typical week, how many times do you talk on the phone with family, friends, or neighbors? Three times a week 11/01/2019 How often do you get togethe r with friends or relatives? Never 11/01/2019 How often do you attend [facility] or adventism services? Never 11/01/2019 Do you belong to [...] and heating? Not hard at all 11/01/2019 [facility]at ional Health - Occupational Stress [...] Sex Assigned at Male 06/06/2023 10:42 PM TOOL RENTAL TECHNICIAN Legal Sex Male 2:14 AM TOOL RENTAL TECHNICIAN Gender Identity Male 11/01/2019 10:26 PM CDT Sexual Orientation Straight 11/01/2019 10 :26 PM CDT Last Filed Vital Signs Vital Sign Reading Time Taken Comments Blood Pressure 132/72 02/14/2024 2:24 PM CDT Pulse 92 02/14/2024 2:24 PM CDT Temperature 36 C (96.8 F) 02/14/2024 2:24 PM CDT Respiratory Rate 19 10/05/2018 1:10 PM CDT Oxygen Saturation 96% 06/15/2023 3:02 PM TOOL RENTAL TECHNICIAN Inhaled Oxygen Concentration - - Weight 126 kg (277 lb 5.4 oz) 02/14/2024 2:24 PM CDT Height 178.2 cm (5' 10.16) 10/04/2018 2:08 PM C DT Body Mass Index 39.62 10/04/2018 2:08 PM CDT Plan of Treatment Not on file Medical Devices Implanted Type Area Residential Leasing Manager Device Identifier Shelf Expiration Date Model / Serial / Lot Knee Implant Knee Implant Bilateral : Knee Procedures Procedure Name Priority Date/Time Associated Diagnosis Comments LIPID PANEL, S Routine 06/30/2023 9:40 AM TOOL RENTAL TECHNICIAN Primary Malignant Neoplasm Of Prostate (HCC) [...] * (ABNORMAL) Lipid Panel (06/30/2023 9:40 AM TOOL RENTAL TECHNICIAN) Triglycerides 201(H) mg/dL 06/30/2023 10:30 AM TOOL RENTAL TECHNICIAN DTL Comment: ----REFERENCE VALUE---- Normal: <150 mg/dL Borderline High: 150-199 mg/dL High: 200-499 mg/dL Very High: > or =500 mg/dL Cholesterol, Total 208(H) mg/dL 2023 10:30 AM TOOL RENTAL TECHNICIAN DTL Comment: ----REFERENCE VALUE---- Desirable: < 200 mg/dL Borderline High: 200 - 239 mg/dL High: > or = 240 mg/dL Cholesterol, LDL, Calculated 126 mg/dL 06/30/2023 10:30 AM TOOL RENTAL TECHNICIAN DTL Comment: ----REFERENCE VALUE---- Desirable: <100 mg/dL Above Desirable: 100-129 mg/dL Borderline High: 130-159 mg/dL High: 160-189 mg/dL Very High: >=190 mg/dL ----ADDITIONAL INFORMATION---- LDL cholesterol calculated using the León/NIH equation. Cholesterol, HDL, S 46 >=40 mg/dL 06/30/2023 10:30 AM TOOL RENTAL TECHNICIAN DTL Cholesterol, Non-HDL, Calculated 162(H) mg/dL 06/30/2023 10:30 AM TOOL RENTAL TECHNICIAN DTL Comment: ----REFERENCE VALUE---- Desirable: <130 mg/dL Above Desirable: 130-159 mg/dL Borderline High: 160-189 mg/dL High: 190-219 mg/dL Very High: > or =220 mg/dL Fasting (8 HR or more) Yes 06/30/2023 10:05 AM TOOL RENTAL TECHNICIAN DTL Blood (Blood, Venous) 06/30/2023 9:40 AM TOOL RENTAL TECHNICIAN 06/30/2023 10:05 AM TOOL RENTAL TECHNICIAN Issa Vazquez M.D. LAB BLOOD ADD-ON Final Result [facility] [address] DTL [facility] [place] [address] [place] [address] * Hemoglobin A1c (10/04/2018 3:09 PM CDT) Hemoglobin A1c, B 5.4 4.0 - 5.6 % 10/04/2018 3:35 PM CDT [facility] Blood (Blood, Venous) 10/04/2018 3:09 PM CDT 10/04/2018 3:17 PM CDT us Honorio Luna M.D. LAB BLOOD ADD-ON Final Resu lt Performing Organization Address [facility]/ZIP Co de Phone Number [facility] [address] * Potassium (10/04/2018 3:08 PM CDT) Potassium, S 4.6 3.6 - 5.2 mmol/L 10/04/2018 4:18 PM CDT [facility] Blood (Blood, Venous) 10/04/2018 3:08 PM CDT 10/04/2018 3:16 PM CDT us Honorio Luna M.D. LAB BLOOD ADD-ON Final Resu lt [facility] [address] * Creatinine with Estimated GFR (10/04/2018 3:08 PM CDT) Creatinine 0.76 0.74 - 1.35 mg/dL 10/04/2018 4:18 PM CDT [facility] eGFR-Non Black/ >90 >=60 mL/min/BSA 10/04/2018 4:18 PM CDT [facility] Comment: ----ADDITIONAL INFORMATION---- Estimated GFR calculated using the 2009 CKD_EPI creatinine equation. eGFR-Black/Afri can [place]an >90 >=60 mL/min/BSA 10/04/2018 4:18 PM CDT [facility] Comment: ----ADDITIONAL INFORMATION---- Estimated GFR calculated using the 2009 CKD_EPI creatinine equation. Blood (Blood, Venous) 10/04/2018 3:08 PM CDT 10/04/2018 3:16 PM CDT us Honorio Luna M.D. LAB BLOOD ADD-ON Final Resu lt [facility] [address] [place] [address], [facility] from Last 3 Months or Most Recently Relevant to Health Maintenance Insurance [facility] Advance Directives For more information, please contact: [phone] * Full Code (Latest Code Status on File) Date Activated Date Inactivated Comments 10/05/2018 10:14 AM 10/05/2018 3:34 PM Question Answer Comments Full Code: Discussed Care Teams Retention Specialist Relationship Specialty Start Date End Date None Reported, Pcp PCP - General 03/17/24
--- OUTSIDE RECORDS SUMMARY | 2024-04-17 21:08 | XMS_ITS ---
Author Organization [facility] Address [address] [place] [address] Care Team Providers Care Pattern Technician Name Role Phone Unavailable Unavailable Unavailable Surgery Details Not on file Complications Check Surgery Details section. Procedure Estimated Blood Loss Check Surgery Details section. Procedure Findings Check Surgery Details section. Procedure Specimens Taken Check Surgery Details section.
--- OUTSIDE RECORDS SUMMARY | 2024-04-17 21:08 | XMS_ITS | Continuity of Care Document ---
Author Organization [facility] Address [address] [place] [address] Phone Care Team Providers Care Wood Flour Miller Name Role Phone Joesph Saini MD Unavailable Unavailable Allergies, Adverse Reactions, Alerts Substance Reaction Status Criticality No Known Allergies Active No Inform ation Medications Medication Instructions Dosage Effective Dates (start - stop) Status Comments ROSUVASTATIN CALCIUM (unknown strength) Not Available - Active Procedures Procedure Date Office/Outpatient Visit,[facility] 2023 Advance Directives Directive Yes / No Effective Date File Name No Information Encounters Encounter Description Practice Location Reason(s) For Visit Diagnoses Date Provider Providers Copied on Encounter Office/Outpat ient Visit,[facility], [facility] , [address], [place], [place], [id number], [place] tel:[phone] [facility] Spinal stenosis, lumbar region with neurogenic claudication Parveen Pink. [facility], [address], [place], [place], [id number] , [place]. tel:[phone] Referring Provider: Atiya Lewis, [facility] Marc [facility], [place], [address]. tel:[phone] Family History Family Member Type Diagnosis Age At Onset No Information Payers Payer name Insurance type Covered libertarian ID Authorjenny salcido(s) [place] [id number] Out Of State [id number] Social History Type Description Quantity Date Captured Comments Alcohol Use Details No Caffeine Use Details Unknown Tobacco Use Status No Information Smoking Status Never smoker Non-Smoking Tobacco Use Details : No Details Available : No Details Available Sex Male Vital Signs Date / Time: Height Weight BMI Pulse Rate Blood Pressure Temperature Respiratory Rate Body Surface Area Head Circumference Head Circ. Percentile Wt./Phong. Percentile BMI percentile Pulse Ox Inhaled Ox 11:50 AM 70.00 in 127.278 kg (280.60 lbs) 40.2 6 kg/m eter (2) Chief Complaint And Reason For Visit No Information Reason For Referral Reason For Referral No Information History Of Present Illness Encounter Date Complaint History Of Prese nt Illness No Information Functional Status Date Functional Assessmen t No Information Instructions Date Instruction Additional Infor mation No Information Assessments Type Assessment Date No Information Patient Care Teams Name Effective Dates (start - stop) Status Members No Information
--- OUTSIDE RECORDS SUMMARY | 2024-04-17 21:08 | XMS_ITS | Clinical Summary ---
Author Organization [facility] Address [address] [place] [address] Care Team Providers Care Panel Instrument Repairer Name Role Phone None Reported, Pcp Primary Care Provider Unavail able Source Comments Patient records contain information from all sites at [facility]. For routine questions regarding patient records, call [phone] during business hours, M-F 8:00 AM - 5:00 PM Central Time. Record requests for emergency care only can be directed to [phone] at any time.[facility] Allergies No known active allergies Medications * [...] (09/08/2018): Added automatically from request for surgery [id number] Primary Malignant Neoplasm Of Prostate 7 Cancer Staging:Pathologic stage from 12/18/2013:Stage IIB(T2c, N0, cM0, PSA: 10 to 19, Talita 7) - Unsigned Apnea Sleep Obstructive Overview (10/04/2018): Compliant with CPAP use Hypertension NOS Thromboembolism NOS Overview (10/04/2018): Left, superficial Gastroesophageal Reflux Disease NOS Resolved Problems Problem Noted Date Diagnosed Date Resolved Date Alcohol Mild Use Disorder (A buse) Uncomplicated 10/04/2018 10/04/2018 Encounters * This document contains information received from the source organization and may not represent a complete record from that organization. Date Type Department Care Team Description 02/14/2024 2:18 PM CDT - 02/14/2024 6:37 PM CDT Hospital Encounter Department of Radiation Oncology in [address] [id number] Des Dillard M.D. Rising Prostate Specific Antigen Following Treatment For Malignant Cancer Of Prostate (Primary Dx) 02/10/2024 10:30 AM CDT Clinical Communication Virtual Review in [address] [phone] Pre-visit Intake from Last 3 Months Family History Medical History Relation Name Comments Cancer Neg Hx Social History Tobacco Use Types Packs/Day Years Used Date Smoking Tobacco: Never Smokeless Tobacco: Former Chew Quit: 2013 Tobacco Cessation:Counseling Given: Not Answered Alcohol Use Standard Drinks/Week Comments Not Currently 21 (1 standard drink = 0.6 oz pu re alcohol) [facility] Utilities Answer Date Recorded In the past 12 months has [employer], gas, oil, or water [employer] threatened to shut off services in your home? No 06/06/2023 Social Connection and Isolation Panel [NHANES] A nswer Date Recorded In a typical week, how many times do you talk on the phone with family, friends, or neighbors? Three times a week 11/01/2019 How often do you get togethe r with friends or relatives? Never 11/01/2019 How often do you attend [facility] or rastafarian services? Never 11/01/2019 Do you belong to any clubs o r organizations such as hoahaoism groups, unions, fraternal or athletic groups, or [...] and heating? Not hard at all 11/01/2019 [facility] - Occupational [...] living situation today? I have a [facility] place to live 06/06/2023 Education Answer Date Recorded What is the highest level of school you have completed or the highest degree you have received? Bachelor's degree (e.g., BA, AB, BS) 11/01/2019 Sex and Gender Information Value Date Recorded Sex Assigned at Male 06/06/2023 10:42 PM CLERICAL ADMINISTRATOR Legal Sex Male 2:14 AM CLERICAL ADMINISTRATOR Gender Identity Male 11/01/2019 10:26 PM CDT Sexual Orientation Straight 11/01/2019 10 :26 PM CDT Last Filed Vital Signs Vital Sign Reading Time Taken Comments Blood Pressure 132/72 02/14/2024 2:24 PM CDT Pulse 92 02/14/2024 2:24 PM CDT Temperature 36 C (96.8 F) 02/14/2024 2:24 PM CDT Respiratory Rate 19 10/05/2018 1:10 PM CDT Oxygen Saturation 96% 06/15/2023 3:02 PM CLERICAL ADMINISTRATOR Inhaled Oxygen Concentration - - Weight 126 kg (277 lb 5.4 oz) 02/14/2024 2:24 P M CDT Height 178.2 cm (5' 10.16) 10/04/2018 2:08 PM C DT Body Mass Index 39.62 10/04/2018 2:08 PM CDT Plan of Treatment Health Maintenance Due Date Last Done Comments CT Colonography 1960 Cologuard 1960 FIT 1960 HIV Screening 1960 Hepatitis C Screening 1960 Office Visit for Blood Pressure Check / Re-check 1960 Visit: Chronic Disease, age 18+ 1960 Pneumococcal vaccine (0-64 years) (1 of 2 - PCV) 1966 RSV vaccine - (32-36 weeks) or 60+ years (1 - Risk 60-74 years 1-dose series) 2020 Depression Screening (Annual PHQ-2) 05/10/2023 Creatinine Level (Kidney Function Test) 04/14/2024 04/14/2023, [...] Vaccines Completed 09/09/2022, 03/15/2019 COVID-19 Vaccine Completed 02/21/2024, 11/2021, 10/10/2021, Additional history exists Influenza Vaccine Completed 02/21/2024, , 02/13/2022, Additional history exists HPV Vaccines Aged Out No longer eligi ble based on patient's age to complete this topic IPV Vaccines Aged Out No longer eligi ble based on patient's age to complete this topic Medical Devices Implanted Type Area Gas Blender Device Identifier Shelf Expiration Date Model / Serial / Lot Knee Implant Knee Implant Bilateral : Knee Procedures Procedure Name Priority Date/Time Associated Diagnosis Comments LIPID PANEL, S Routine 06/30/2023 9:40 AM CLERICAL ADMINISTRATOR Primary Malignant Neoplasm Of Prostate (HCC) Rising [...] * (ABNORMAL) Lipid Panel (06/30/2023 9:40 AM CLERICAL ADMINISTRATOR) Triglycerides 201(H) mg/dL 06/30/2023 10:30 AM CLERICAL ADMINISTRATOR DTL Comment: ----REFERENCE VALUE---- Normal: <150 mg/dL Borderline High: 150-199 mg/dL High: 200-499 mg/dL Very High: > or =500 mg/dL Cholesterol, Total 208(H) mg/dL 2023 10:30 AM CLERICAL ADMINISTRATOR DTL Comment: ----REFERENCE VALUE---- Desirable: < 200 mg/dL Borderline High: 200 - 239 mg/dL High: > or = 240 mg/dL Cholesterol, LDL, Calculated 126 mg/dL 06/30/2023 10:30 AM CLERICAL ADMINISTRATOR DTL Comment: ----REFERENCE VALUE---- Desirable: <100 mg/dL Above Desirable: 100-129 mg/dL Borderline High: 130-159 mg/dL High: 160-189 mg/dL Very High: >=190 mg/dL ----ADDITIONAL INFORMATION---- LDL cholesterol calculated using the León/NIH equation. Cholesterol, HDL, S 46 >=40 mg/dL 06/30/2023 10:30 AM CLERICAL ADMINISTRATOR DTL Cholesterol, Non-HDL, Calculated 162(H) mg/dL 06/30/2023 10:30 AM CLERICAL ADMINISTRATOR DTL Comment: ----REFERENCE VALUE---- Desirable: <130 mg/dL Above Desirable: 130-159 mg/dL Borderline High: 160-189 mg/dL High: 190-219 mg/dL Very High: > or =220 mg/dL Fasting (8 HR or more) Yes 06/30/2023 10:05 AM CLERICAL ADMINISTRATOR DTL Blood (Blood, Venous) 06/30/2023 9:40 AM CLERICAL ADMINISTRATOR 06/30/2023 10:05 AM CLERICAL ADMINISTRATOR Issa Vazquez M.D. LAB BLOOD ADD-ON Final Result [facility] [address] DTL [facility] [place] [address] [place] [address] * Hemoglobin A1c (10/04/2018 3:09 PM CDT) Hemoglobin A1c, B 5.4 4.0 - 5.6 % 10/04/2018 3:35 PM CDT [facility] Blood (Blood, Venous) 10/04/2018 3:09 PM CDT 10/04/2018 3:17 PM CDT us Honorio Luna M.D. LAB BLOOD ADD-ON Final Resu lt Performing Organization Address City/[facility]/ZIP Co de Phone Number [facility] [address] * Potassium (10/04/2018 3:08 PM CDT) Potassium, S 4.6 3.6 - 5.2 mmol/L 10/04/2018 4:18 PM CDT [facility] Blood (Blood, Venous) 10/04/2018 3:08 PM CDT 10/04/2018 3:16 PM CDT us Honorio Luna M.D. LAB BLOOD ADD-ON Final Resu lt [facility] [address] * Creatinine with Estimated GFR (10/04/2018 3:08 PM CDT) Creatinine 0.76 0.74 - 1.35 mg/dL 10/04/2018 4:18 PM CDT [facility] eGFR-Non Black/ >90 >=60 mL/min/BSA 10/04/2018 4:18 PM CDT [facility] Comment: ----ADDITIONAL INFORMATION---- Estimated GFR calculated using the 2009 CKD_EPI creatinine equation. eGFR-Black/Afri can Micronesian >90 >=60 mL/min/BSA 10/04/2018 4:18 PM CDT [facility] Comment: ----ADDITIONAL INFORMATION---- Estimated GFR calculated using the 2009 CKD_EPI creatinine equation. Blood (Blood, Venous) 10/04/2018 3:08 PM CDT 10/04/2018 3:16 PM CDT us Honorio Luna M.D. LAB BLOOD ADD-ON Final Resu lt [facility] [address] [place] [address], [facility] from Last 3 Months or Most Recently Relevant to Health Maintenance Insurance [facility] Advance Directives For more information, please contact: [phone] * Full Code (Latest Code Status on File) Date Activated Date Inactivated Comments 10/05/2018 10:14 AM 10/05/2018 3:34 PM Question Answer Comments Full Code: Discussed Care Teams Panel Instrument Repairer Relationship Specialty Start Date End Date None Reported, Pcp PCP - General 03/17/24
--- OUTSIDE RECORDS SUMMARY | 2024-04-17 21:09 | XMS_ITS | Continuity of Care Document ---
Author Name [facility] Organization [facility] Care Team Providers Care Saturation Diver Name Role Phone [facility] Unavailable Unavailable Problems Combined list of problems [...] Site Reaction Lot Number CVX Code Drug Spray I Painter Status Comments Source Influenza, seasonal, injectable, preservative free 15 2011 Unknown, Provider [id number] [employer] (CSL) complet ed Influenza , seasonal, injectabl e, preservat essence free DoD typhoid Vi capsular polysaccharid e vaccine 6 2011 Unknown, Provider [id number] Sanofi Pasteur ([facility]) complet ed typhoid Vi capsular polysacch aride vaccine DoD Influenza, seasonal, injectable, preservative free 1 2010 Unknown, Provider [id number] Sanofi Pasteur ([facility]) complet ed Influenza , seasonal, injectabl e, preservat essence free DoD influenza virus vaccine, split virus (incl. purified surface antigen)-reti red CODE 1 2009 Unknown, Provider [id number] 15 Sanofi Pasteur ([facility]) complet ed influenza virus vaccine, split virus (incl. purified surface antigen)- retired CODE DoD hepatitis B vaccine, adult dosage 3 2009 Unknown, Provider [id number] hepatitis B vaccine, adult dosage DoD typhoid Vi capsular polysaccharid e vaccine 1 2009 Unknown, Provider [id number] 101 Sanofi Pasteur ([facility]) complet ed typhoid Vi capsular polysacch aride vaccine DoD varicella virus vaccine 2 2009 Unknown, Provider [id number] Merck (MSD) complet ed varicella virus vaccine DoD hepatitis B vaccine, adult dosage 2 2009 Unknown, Provider [id number] [facility] complet ed hepatitis B vaccine, adult dosage DoD varicella virus vaccine 1 2009 Unknown, Provider [id number] Merck (MSD) complet ed varicella virus vaccine DoD hepatitis B vaccine, adult dosage 1 2009 Unknown, Provider [id number] [facility] ([facility]) complet ed hepatitis B vaccine, adult dosage DoD Novel influenza-H1N 1-09, injectable 1 2009 Unknown, Provider [id number] 127 [employer] (NOV) complet ed Novel influenza -T4C3-15, injectabl e DoD influenza virus vaccine, split virus (incl. purified surface antigen)-reti red CODE 1 2008 Unknown, Provider [id number] 15 [employer] (CSL) complet ed influenza virus vaccine, split virus (incl. purified surface antigen)- retired CODE DoD influenza virus vaccine, split virus (incl. purified surface antigen)-reti red CODE 1 2007 Unknown, Provider [id number] 15 [employer] (CSL) complet ed influenza virus vaccine, split virus (incl. purified surface antigen)- retired CODE DoD yellow fever vaccine 1 2007 Unknown, Provider [id number] 37 Sanofi Pasteur ([facility]) complet ed yellow fever vaccine DoD meningococcal polysaccharid e (groups A, C, Y and W-135) diphtheria toxoid conjugate vaccine (MCV4P) 1 2007 Unknown, Provider [id number] complet ed meningoco ccal polysacch aride (groups A, C, Y and W-135) diphtheri a toxoid conjugate vaccine (MCV4P) DoD typhoid Vi capsular polysaccharid e vaccine 1 2007 Unknown, Provider [id number] [facility]) complet ed typhoid Vi capsular polysacch aride vaccine DoD tetanus toxoid, reduced diphtheria toxoid, and acellular pertu is vaccine, adsorbed 1 2007 [id number] 115 Sanofi Pasteur ([facility]) complet ed tetanus toxoid, reduced diphtheri a toxoid, and acellular pertussis vaccine, adsorbed DoD influenza virus vaccine, split virus (incl. purified surface antigen)-reti red CODE 1 2006 [id number] () complet ed influenza virus vaccine, split virus (incl. purified surface antigen)- retired CODE DoD influenza virus vaccine, split virus (incl. purified surface antigen)-reti red CODE 1 2006 [id number] 15 Sanofi Pasteur ([facility]) complet ed influenza virus vaccine, split virus (incl. purified surface antigen)- retired CODE DoD tuberculin skin test; purified protein derivative solution, intradermal 1 2006 Unknown, Provider [id number] Other (OTH) complet ed tuberculi n skin test; purified protein derivativ e solution, intraderm al DoD influenza virus vaccine, split virus (incl. purified surface antigen)-reti red CODE 1 2005 [id number] 15 Sanofi Pasteur ([facility]) complet ed influenza virus vaccine, split virus (incl. purified surface antigen)- retired CODE DoD typhoid Vi capsular polysaccharid e vaccine 1 2005 [id number] [facility]) complet ed typhoid Vi capsular polysacch aride vaccine DoD influenza virus vaccine, live, attenuated, for intranasal use 0 2004 [id number] [employer] (MED) complet ed influenza virus vaccine, live, attenuate d, for intranasa l use DoD influenza virus vaccine, split virus (incl. purified surface antigen)-reti red CODE 1 2002 Unknown, Provider [id number] 15 Jalen (SUSANNA) complet ed influenza virus vaccine, split virus (incl. purified surface antigen)- retired CODE DoD influenza virus vaccine, whole virus 0 2002 [id number] 16 Jalen (SUSANNA) complet ed influenza virus vaccine, whole virus DoD varicella virus vaccine 1 2002 21 () Not Given varicella virus vaccine DoD influenza virus vaccine, split virus (incl. purified surface antigen)-reti red CODE 1 2000 Unknown, Provider [id number] 15 Jalen (SUSANAN) complet ed influenza virus vaccine, split virus (incl. purified surface antigen)- retired CODE DoD influenza virus vaccine, whole virus 0 2000 [id number] 16 Jalen (SUSANNA) complet ed influenza virus vaccine, whole virus DoD typhoid vaccine, parenteral, other than acetone-kille d, dried 0 2000 [id number] Luis Felipeaught (CON) complet ed typhoid vaccine, parentera l, other than acetone-k illed, dried DoD influenza virus vaccine, split virus (incl. purified surface antigen)-reti red CODE 1 1998 Unknown, Provider [id number] 15 Yashirat (CON) complet ed influenza virus vaccine, split virus (incl. purified surface antigen)- retired CODE DoD influenza virus vaccine, whole virus 0 [id number] 16 [employer] (CON) complet ed influenza virus vaccine, whole virus DoD influenza virus vaccine, split virus (incl. purified surface antigen)-reti red CODE 1 1997 Unknown, Provider [id number] 15 Jalen (SUSANNA) complet ed influenza virus vaccine, split virus (incl. purified surface antigen)- retired CODE DoD influenza virus vaccine, whole virus 0 [id number] 16 Jalen (SUSANNA) complet ed influenza virus vaccine, whole virus DoD hepatitis A vaccine, adult dosage 2 1997 [id number] Merck (MSD) complet ed hepatitis A vaccine, adult dosage DoD measles, mumps and rubella virus vaccine 0 1997 [id number] Unknown (UNK) comple t ed measles, mumps and rubella virus vaccine DoD meningococcal polysaccharid e vaccine (MPSV4) 0 1997 [id number] Unknown (UNK) comple t ed meningoco [...] antigen)-reti red CODE 1 1997 Unknown, Provider [id number] 15 [employer] (CON) complet ed influenza virus vaccine, split virus (incl. purified surface antigen)- retired CODE DoD influenza virus vaccine, whole virus 0 1997 [id number] 16 [employer] (CON) complet ed influenza virus vaccine, whole virus DoD hepatitis A vaccine, adult dosage 1 1997 [id number] Merck (MSD) complet ed hepatitis A vaccine, adult dosage DoD yellow fever vaccine 0 1996 [id number] Unknown (UNK) comple t ed yellow [...] ADM Date DC Date Status Disposition Source [address] [place] [address] Medicine 0073) OUTPATIENT [id number] cut hand over weekend , needs RTFS PIERRE AYALA 02/01 Released w/o Limitations [employer](F light Medicin e 0073) [employer]([facility] Medicine [facility]) OUTPATIENT [id number] annual fly pha NATTY GARDNER Nubia 07/12 Released w/o Limitations [employer]([facility]) [employer]([facility] Medicine [facility]) OUTPATIENT [id number] [facility] IFEANYI Graham Porfirio 07/15 Released w/o Limitations [employer]([facility] Medic[facility] Clinic) [employer]([place] [address]) OUTPATIENT [id number] infecti on on R finger PIERRE AYALA 01/19 Released w/o Limitations [employer](F light Medicin e 0073) [employer]([facility] Medicine [facility]) OUTPATIENT [id number] POLI DA SILVA 07/12 Released w/o Limitations [employer](F light Medicin e 0073) [employer]([facility] Medicine [facility]) OUTPATIENT [id number] Notes Entered by: Romulo LLOYD 19 Jun 2011 0752 ------- ------- ------- ------- -- RYAN Tran 06/19 Released w/o Limitations [employer](F light Medicin e 0073) [employer]([facility] Medicine [facility]) OUTPATIENT [id number] RYAN TRIMBLE 11/16 Released w/o Limitations [employer](F light Medicin e 0073) [employer]([facility] (Tech Only)) OUTPATIENT [id number] ekg/SONDRA Leiva 11/17 Released w/o Limitations [employer](E KG Card Lab (Tech Only)) [employer](Car diology Procedure Clinic) OUTPATIENT [id number] Notes Entered by: RALEIGH BARDALES 19 Nov 2011 0947 ------- ------- ------- ------- -- Walkin per FLAQUITO Woodruff 11/18 Released w/o Limitations [employer](C ardiolo gy Procedu re Clinic) [employer](EKG Card [facility] (Tech Only)) OUTPATIENT [id number] echo/bj ROXY Nunn 11/18 Released w/o Limitations [employer](E KG Card Lab (Tech Only)) [employer]([facility]) OUTPATIENT [id number] echo FLAQUITO Paul 11/18 Released w/o Limitations [employer](C ardiolo gy Procedu re Clinic) [employer](EKG Card Lab (Tech Only)) OUTPATIENT [id number] Notes Entered by: NIYA ANGELES 20 Nov 2011 0820 ------- ------- ------- ------- -- ekg/ko a SONDRA LAL 11/19 Released w/o Limitations [employer](E KG Card Lab (Tech Only)) [employer](Fli t Medicine 0073) OUTPATIENT [id number] RTFS RYAN JOSHI 12/09 Released w/o Limitations [employer](F light Medicin e 0073) [employer](Fli t Medicine 0073) TELE CONSULT [id number] Notes Entered by: GREER PORTILLO 16 Dec 2011 1744 ------- ------- ------- ------- -- Labs RYAN JOSHI 12/15 [employer](F light Medicin e 0073) [employer](Fli t Medicine 0073) OUTPATIENT [id number] [address] SHOAIB FLETCHER 01/31 Released w/o Limitations [employer](F light Medicin e 0073) [employer](Fli t Medicine 0073) OUTPATIENT [id number] Notes Entered by: STEVE HOWELL I 29 Feb 2012 0829 ------- ------- ------- ------- -- Back px COLETTERYAN SIMMONS Jackson 02/28 Released w/o Limitations [employer](F light Medicin e 0073) [facility] Medicine 0073) TELE CONSULT [id number] Notes Entered by: GREER PORTILLO 11 Oct 2012 1533 ------- ------- ------- ------- -- Refill prescri ption meds RYAN JOSHI Jackson 10/11 [facility](F light Medicin e 0073) Procedures Combined list of: 1) Procedures from Department of Veterans Affairs facilities going back up to thelast 18 months, not all VA non-surgical procedures are included; 2) All procedures from the Department of Defense facilities. Procedure Procedure Type Code Date Perfomer Comments [facility] ELECTROCARDIOGRAM, ROUTINE ECG WITH AT LEAST 12 LEADS; WITH INTERPRETATION AND REPORT 11/20/19 [facility] ECHOCARDIOGRAPHY,FR[place] STHORACIC,REAL-TIME W IMAGE DOCUMENTATION (2D),INCLUDES M-MODE RECORDING,WHEN PERFORMED,COMPLETE,WI SPECTRAL DOPPLER ECHOCARDIOGRAPHY,AND W COLOR FLOW DOPPLER ECHOCARDIOGRAPHY 11/19/19 [facility] ELECTROCARDIOGRAM, ROUTINE ECG WITH AT LEAST 12 LEADS; WITH INTERPRETATION AND REPORT 11/18/19 12 [facility] SIMPLE REPAIR OF SUPERFICIAL WOUNDS OF SCALP, NECK, AXILLAE, EXTERNAL GENITALIA, TRUNK AND/OR EXTREMITIES (INCLUDING HANDS AND FEET); 2.5 CM OR LESS 01/31/20 06 DoD Electrocardiogram Electrocardiogram 32095 11/19 12 [email or web address], SONDRA H DoD Echo Congenital Cardiac Defects Transthoracic W/ M-Mode, Spectral, & Color Flow Echo Congenital Cardiac Defects Transthoracic W/ M-Mode, Spectral, & Color Flow [id number] 11/19/19 12 ROXY RUBIO DoD Electrocardiogram Electrocardiogram 83819 11/17 12 [employer], SONDRA H DoD Social History Combined list of available smoking, tobacco, and other social history from Department of Defense and Veterans Affairs facilities. Social History Type Response Date Comment [facility] lakhwinder This section is an empty social history section. DoD
--- OUTSIDE RECORDS SUMMARY | 2024-04-17 21:09 | XMS_ITS ---
Author Organization [facility] Address [address] [place] [address] Care Team Providers Care Computer Technical Support Specialist Name Role Phone None Reported, Pcp Primary Care Provider Unavail able Active Problems * This document contains information received from the source organization and may not represent a complete record from that organization. Problem Noted Date Diagnosed Date Hyperglycemia 10/04/2018 Rising Prostate Specific Ant igen Following Treatment For Malignant Cancer Of Prostate 09/08/2018 Overview (09/08/2018): Added automatically from request for surgery [id number] Primary Malignant Neoplasm Of Prostate 7 Cancer Staging:Pathologic stage from 12/18/2013:Stage IIB(T2c, N0, cM0, PSA: 10 to 19, [place] 7) - Unsigned Apnea Sleep Obstructive Overview [...] Treated Prescribed Fraction Dose Prescribed Total Dose [id number] S 09/09/2023 43 7 of 7 215 cGy 1,505 cGy [id number] 08/31/2023 34 25 of 25 215 cGy 5,375 cGy Reference Point Last Treated On Elapsed Days Session Dose Total Dose [id number] 09/09/2023 43 215 cGy 6,880 cGy Resolved Problems Problem Noted Date Diagnosed Date Resolved Date Alcohol Mild Use Disorder (A buse) Uncomplicated 10/04/2018 10/04/2018
--- OUTSIDE RECORDS SUMMARY | 2024-04-17 21:09 | XMS_ITS | Clinical Summary ---
Author Organization [employer] [facility] Address [place], [place] [address] Care Team Providers Care Fleet Technician Name Role Phone Atiya Lewis Primary Care Provider Pamela Murrell RN Unavailable [phone] Luciano Ni Unavailable Unavailable Issa Goodwin MD Unavailable Unavailable Allergies No known active allergies Medications Graduated Compression StockingsIndicatio ns:Bilateral leg edema For personal use. Length: calf Strength: 20-30 mmHg 2 Packet 12/02/19 22 Active valACYclovir (VALTREX) 500 mg tabletIndications: HSV-2 (herpes simplex virus 2) infection Take 1 Tablet (500 mg) by mouth two times daily. Takes as needed 30 Tablet 1 04/14/20 23 Active amLODIPine (NORVASC) 10 mg tabletIndications: Essential hypertension Take 1 Tablet (10 mg) by mouth once daily. 90 Tablet 2 10/27/19 24 Active CPAPIndications:OS A (obstructive sleep apnea) RESMED CPAP (E0601) machine for home use at pressure: 11 cmw, Choice of mask (A7030 or A7034) w/full face cushion (A7031) x1/mo, nasal cushion (A7032) x2/mo, or nasal pillows (A7033) x 2/mo; Length of Need: 99 months; Frequency of use: Daily 1 Each 11 12/23/19 24 Active losartan (COZAAR) 100 mg tabletIndications: Elevated BP without diagnosis of hypertension Take 1 Tablet (100 mg) by mouth once daily. 90 Tablet 3 02/21/20 24 Active rosuvastatin (CRESTOR) 10 mg tabletIndications: Hyperlipidemia, unspecified hyperlipidemia type Take 1 Tablet (10 mg) by mouth at bedtime. 90 Tablet 3 02/22/20 24 Active celecoxib (CELEBREX) 200 mg capsuleIndications :DDD (degenerative disc disease), cervical,Chronic pain of both shoulders,Degenera tion of intervertebral disc of lumbar region, unspecified whether pain present Take 1 Capsule (200 mg) by mouth once daily with a meal. 90 Capsule 04/03/20 24 Active semaglutide (Wegovy) 0.25 mg/0.5 mL subcutaneous penIndications:Cla ss 3 severe obesity with serious comorbidity and body mass index (BMI) of 40.0 to 44.9 in adult, unspecified obesity type (HC) Inject 0.25 mg subcutaneous once weekly. 6 mL 04/03/20 24 Active venlafaxine (EFFEXOR XR) 150 mg Extended-Release capsuleIndications :Adjustment disorder, unspecified type TAKE 2 CAPSULES ONCE DAILY WITH A MEAL 180 Capsule 1 11/09/19 24 024 Discontin ued(*Med complete/ Regimen complete/ Level of care change) venlafaxine (EFFEXOR XR) 37.5 mg Extended-Release capsuleIndications :Adjustment disorder, unspecified type Take 1 Capsule (37.5 mg) by mouth once daily with a meal. 90 Capsule 02/28/20 24 024 Discontin ued(*Med complete/ Regimen complete/ Level of care change) venlafaxine (EFFEXOR XR) 75 mg cp24 Extended-Release capsuleIndications :Adjustment disorder, unspecified type Take 1 Capsule (75 mg) by mouth once daily with a meal. 90 Capsule 02/28/20 24 024 Discontin ued(*Med complete/ Regimen complete/ Level of care change) Active Problems Problem Noted Date Diagnosed Date Alcoholism 12/06/2023 KORY 04/12/2018 AHI-52 with hypoxemia 04/25/2018 Unspecified adjustment reaction 06/21/2014 Adenomatous colon polyp 06/13/2014 Overview (02/13/2022): Colonoscopy 06/2014 polyps repeat in 5 years Colonoscopy 02/2022 normal, repeat in 7-10 years Prostate cancer 12/25/2013 S/P prostatectomy 12/25/2013 Elevated BP 05/16/2008 Encounters Date Type Department Care Team Description 04/17/2024 Telephone [facility] [place] [address] Atiya Lewis PA Prior Authorization (semaglutide (Wegovy) 0.25 mg/0.5 mL subcutaneous pen) 04/14/2024 Travel 04/10/2024 Telephone [facility] [address] [place] [address] Atiya Lewis PA Prior Authorization (celecoxib (CELEBREX) 200 mg capsule Approved 04/10/24-04/10/25) 04/03/2024 11:50 AM [employer]CRA[employer]IC Office Visit [facility] [address] [place] [address] Atiya Lewis PA Weight (Discuss options); Musculoskeletal Problem (Back pain / weakness stiffness -- Neck pain, go over MRI results, ); Pain (Discuss pain management); Derm Problem (Mole on head); Concerns (Lower legs feel tight , reminds him of when he had cellultis) 04/03/2024 Travel 03/29/2024 1:00 PM [employer] MECHANIC Office Visit [facility] [address] [facility] [place] [address] Alberto Hall MD Sleep Follow-up 03/29/2024 Travel 03/24/2024 Travel 03/16/2024 12:30 PM [employer]CH[employer]IC Ancillary Procedure [place] [address] [facility] [place] [address] 03/16/2024 Travel 03/11/2024 Travel 03/08/2024 1:30 PM CDT Office Visit [place] [address] [facility] [place] [phone] [place] LICSW Individual Therapy 03/08/2024 Travel 03/01/2024 4:00 PM CDT [facility] [place] [phone] [place] LICSW Individual Therapy 03/01/2024 Travel 02/25/2024 Travel 02/24/2024 Refill [facility] [address] [place] [facility] [place] [address] Atiya Lewis PA Refill Request (Venlafaxine 37.5 mg & 75 mg ) 02/21/2024 4:00 PM CDT Ancillary Procedure [facility] [address] [place] [address] 02/21/2024 2:20 PM CDT Office Visit [facility] [address] [place] [address] Atiya Lewis PA Musculoskeletal Problem (Neck pain that radiates down shoulders, more R than L . Will wake him up at night. ); Follow Up (Post of for back injection, next steps / update on cancer); Results (MRI and echo results); Medication Management (Needs to go off effexor to fly) 02/21/2024 1:30 PM CDT Office Visit [facility] [address] [place] [address] [place] LICSW Individual Therapy 02/20/2024 Travel 02/16/2024 2:15 PM CDT Office Visit [facility] [address] [place] [address] [place] [facility]IC[facility] 02/16/2024 Travel 02/12/2024 Travel 01/28/2024 11:20 AM CDT Office Visit [facility] at [facility] [address] [place] [address] Isma Colón MD Procedure (L3-4 ILESI) 01/25/2024 Travel 01/21/2024 2:00 PM CDT Ancillary Procedure [facility] [address] [place] [address] 01/21/2024 Travel 01/17/2024 11:45 AM CDT Office Visit [facility] [address] [place] [phone] [place], [facility] Mental Health Intake 01/17/2024 Travel from Last 3 Months Immunizations Name Administration Dates Next Due COVID-19 VACCINE SPIKEVAX (M ODERNA 50MCG/0.5ML) 12YO+ PFS 02/21/2024 COVID-19 vaccine (Pfizer-Bio NTech 30mcg/0.3mL) 12YO+ BIVALENT PF, MDV 02/13/2022 COVID-19 vaccine (Pfizer-Bio NTech 30mcg/0.3mL) PF, MDV 04/21/2021,08/30/2020,08/13/2020 Hepatitis A (Adult) 01/19/1998,06/06/1997 Hepatitis B (Adult) 04/09/2010,09/07/2009,2009 INFLUENZA, IIV3 PF (AGE >= 6 MO) 02/21/2024 Influenza A (H1N1), Inactiva fatou (Age >=3 [...] Answer Date Recorded PHQ-2 TOTAL SCORE 2 02/20/2024 Social Connections Answer Date Recorded Do you often feel lonely or isolated from those around you? 0 03/29/2024 Financial Resource Strain Answer Date R ecorded Difficulty of Paying Living Expenses 3 03/29/2024 Difficulty of Paying Living Expenses Not on file 03/29/2024 Food Insecurity Answer Date Recorded Do you worry your food will run out before you are able to buy more? 1 03/29/2024 Transportation Needs Answer Date Record ed Does lack of transportation keep you from medica l appointments? 1 03/29/2024 Does lack of transportation keep you from work, meetings or getting things that you need? 1 03/29/2024 Housing Stability Answer Date Recorded What is your housing situation today? 1 03/29/2024 Sex and Gender Information Value Date Recorded Sex Assigned at Not on file Legal Sex Male 7:07 AM [employer] SHE[employer] Gender Identity Not on file Sexual Orientation Not on file Obstetrics History Last Filed Vital Signs Vital Sign Reading Time Taken Comments Blood Pressure 127/83 04/03/2024 12:02 PM [employer] MECH[employer]IC Pulse 80 04/03/2024 12:02 PM [employer] MECH[employer]IC Temperature 37.1 C (98.7 F) 05/05/2023 2:14 PM [employer] MECH[employer]IC Respiratory Rate 17 04/08/2020 4:30 PM [employer] SHE[employer] MET[employer] MECH[employer]IC Oxygen Saturation 97% 03/29/2024 1:04 PM [employer] MECH[employer]IC Inhaled Oxygen Concentration - - Weight 130.2 kg (287 lb) 04/03/2024 12:02 PM [employer]FT SHE[employer] MET[employer] MECH[employer]IC Height 177 cm (5' 9.69) 03/29/2024 1:04 PM [employer] MECH[employer]IC Body Mass Index 41.55 03/29/2024 1:04 PM [employer] MECH[employer]IC Plan of Treatment Upcoming Encounters Date Type Department Care Team (Late st Contact Info) Description 04/19/2024 11:00 AM [employer] SHE[employer] MECH[employer]IC Office Visit [facility] [address] [place] [phone] [place] [facility] [address] [place] [address] 04/24/2024 2:15 PM [employer] MECH[employer]IC Office Visit [facility] [address] [place] [phone] [place] [facility] [address] [place] [address] 05/15/2024 11:45 AM AIRCRAFT SHE[employer] MET[employer] MECH[employer]IC Office Visit [facility] [address] [place] [phone] [place] [facility] [address] [place] [address] 05/22/2024 1:30 PM AIR[employer] MET[employer] MECH[employer]IC Office Visit [facility] [address] [place] [phone] [place] [facility] [address] [place] [address] 05/31/2024 8:00 AM AIR[employer] SHE[employer] MET[employer] MECH[employer]IC Office Visit [facility] [place] [address] Alberto Hall MD [address] [place] [address] Health Maintenance Due Date Last Done Comments Pneumococcal series for age 6-64 (1 of 2 - PCV) 1966 HIV for age 15-65 10/31/1975 Hepatitis C screening for ag e 18-79 1978 RSV vaccine for adults or (1 - Risk 60-74 years 1-dose series) 2020 COVID-19 vaccine series (2023- season) 2024 02/21/2024, 03/15/2023, 02/13/2022, Additional history exists Depression screening for age 12+ 02/23/2025 02/24/2024, 02/21/2024, 02/21/2024, Additional history exists BMI (ht and wt on same day) for age 18+ 03/29/2025 03/29/2024, 12/23/2023, 09/07/2022, Additional history exists Tetanus booster 04/20/2026 04/20/2016, 05/10, 11/18/1996 Colonoscopy through age 75 02/13/202702/13, 02/13/2022, 02/13/2022, Additional history exists Lipids for age 45-75 02/20/2029 02/21/2024, 09/02/2022, 03/11/2021, Additional history exists Tdap Completed 04/20/2016, 05/21/2007 Zoster (shingles) series for age 50+ Completed 09/07/2022, 03/15/2019 Influenza for age 50-64 Completed 02/21/20 24, 04/14/2023, 02/13/2022, Additional history exists Procedures Procedure Name Priority Date/Time Associated Diagnosis Comments MR SPINE CERVICAL WO Routine 03/16/2024 1:09 PM [employer]CH[employer]IC Neck pain Radicular pain of upper extremity XR SPINE CERVICAL 3 VIEWS Routine 02/21/2024 4:14 PM CDT Neck pain Radicular pain of upper extremity LIPID PANEL W REFLEX MEASURED LDL Routine 02/21/2024 4:02 PM CDT Screening cholesterol level COMP METABOLIC PANEL Routine 02/21/2024 4:02 PM CDT Elevated BP without diagnosis of hypertension AMB EPIDURAL STEROID INJECTION Routine 01/28/2024 7:59 AM CDT Left leg pain Lumbar foraminal stenosis NE NJX DX/THER SBST INTRLMNR LMBR/SAC W/IMG GDN Routine 01/28/2024 12:00 AM CDT Left leg pain Lumbar foraminal stenosis ECHO TTE COMPLETE WO CONTRAST SHANNAN 01/21/2024 3:08 PM CDT Central apnea COLONOSCOPY SCREENING Routine 02/13/2022 10:43 AM CDT History of colon polyps from Last 3 Months or Most Recently Relevant to Health Maintenance Results * MR SPINE CERVICAL WO (03/16/2024 1:09 PM AIRCRAFT SHE[employer] MET[employer] MECHANIC) Anatomical Region Laterality Modality Spine, CERVICAL SPINE Magnetic R esonance 03/17/2024 2:32 PM [employer] SHE[employer] METAL MECHANIC Impressions 03/17/2024 2:32 PM [employer] METAL MECHANIC 1. Normal alignment. No fractures 2. Normal cord signal. 3. At C5-6, mild narrowing of the spinal canal. Moderate to severe narrowing of the bilateral neural foramina 4. At C6-7, mild narrowing of the spinal canal. Moderate narrowing of the bilateral neural foramina 5. At C7-T1, mild narrowing of the right neural foramina Dictated by Samy Hickman MD @ 03/17/2024 2:32:09 PM (Electronically Signed) Narrative 03/17/2024 2:32 PM AIRCRAFT SHEET METAL MECHANIC For Patients: As a result of the Cures Act, medical imaging exams and procedure reports are released immediately into your electronic medical record. You may view this report before your referring provider. If you have questions, please contact your health care provider. INDICATION: Neck pain. COMPARISON: 02/21/2024. TECHNIQUE: Sagittal T1, T2, and STIR sequences. Axial T2/gradient sequences. FINDINGS: Normal vertebral body facet alignment. No fractures. No vertebral body loss of height. No spondylolisthesis. No ligamentous injury. Normal marrow signal. No suspicious osseous lesions. Normal cord signal. No intradural mass or lesion. C1-2: No spinal canal narrowing. C2-3: No spinal canal or neural foraminal narrowing. C3-4: Disk degeneration. No narrowing of the spinal canal. Mild narrowing of the right neural foramen. No narrowing of the left neural foramen. C4-5: Mild disc degeneration. No spinal canal or neural foraminal narrowing. C5-6: Disc degeneration loss of disc height. Modic type 2 endplate changes. Broad-based disc osteophyte complex. Effacement of the ventral thecal sac. Mild narrowing of spinal canal. Moderate severe narrowing of the bilateral foramina. Potential impingement of the C6 nerve roots. C6-7: Disc degeneration broad-based disc osteophyte complex. Mild narrowing of spinal canal. Moderate narrowing of the bilateral foramina. C7-T1: Disc degeneration posted disc bulge. No narrowing of the spinal canal. Mild narrowing of the right neural foramen. No narrowing of the left neural foramen. No spinal canal neural foraminal narrowing in the visualized upper thoracic spine. Procedure Note Samy Hickman MD, PhD - 03/17/2024 For Patients: As a result of the Cures Act, medical imagingexams and procedure reports are released immediately into your electronicmedical record. You may view this report before your referring provider.If you have questions, please contact your health care provider. INDICATION: Neck pain. COMPARISON: 02/21/2024. TECHNIQUE: Sagittal T1, T2, and STIR sequences. Axial T2/gradient sequences. FINDINGS: Normal vertebral body facet alignment. No fractures. No vertebral bodyloss of height. No spondylolisthesis. No ligamentous injury. Normal marrowsignal. No suspicious osseous lesions. Normal cord signal. No intraduralmass or lesion. C1-2: No spinal canal narrowing. C2-3: No spinal canal or neural foraminal narrowing. C3-4: Disk degeneration. No narrowing of the spinal canal. Mild narrowingof the right neural foramen. No narrowing of the left neural foramen. C4-5: Mild disc degeneration. No spinal canal or neural foraminalnarrowing. C5-6: Disc degeneration loss of disc height. Modic type 2 endplatechanges. Broad-based disc osteophyte complex. Effacement of the ventralthecal sac. Mild narrowing of spinal canal. Moderate severe narrowing ofthe bilateral foramina. Potential impingement of the C6 nerve roots. C6-7: Disc degeneration broad-based disc osteophyte complex. Mildnarrowing of spinal canal. Moderate narrowing of the bilateral foramina. C7-T1: Disc degeneration posted disc bulge. No narrowing of the spinalcanal. Mild narrowing of the right neural foramen. No narrowing of theleft neural foramen. No spinal canal neural foraminal narrowing in the visualized upperthoracic spine. IMPRESSION: 1. Normal alignment. No fractures 2. Normal cord signal. 3. At C5-6, mild narrowing of the spinal canal. Moderate to severenarrowing of the bilateral neural foramina 4. At C6-7, mild narrowing of the spinal canal. Moderate narrowing of thebilateral neural foramina 5. At C7-T1, mild narrowing of the right neural foramina Dictated by Samy Hickman MD @ 03/17/2024 2:32:09 PM (Electronically Signed) us Atiya JARQUIN MR Final R esult * XR SPINE CERVICAL 3 VIEWS (02/21/2024 4:14 PM CDT) Anatomical Region Laterality Modality CERVICAL SPINE Computed Radiogr aphy 02/21/2024 5:31 PM CDT Impressions 02/21/2024 5:31 PM CDT 1. No radiographic evidence of acute osseous injury. 2. Mild degenerative change at C5-6, C6-7 Dictated by Waldo Hicks MD @ 02/21/2024 5:31:50 PM (Electronically Signed) Narrative 02/21/2024 5:31 PM CDT For Patients: As a result of the Century Cures Act, medical imaging exams and procedure reports are released immediately into your electronic medical record. You may view this report before your referring provider. If you have questions, please contact your health care provider. INDICATION: Neck pain. FINDINGS: Three views of the cervical spine are submitted. No comparison. The overall stature and alignment of the cervical spine is within normal limits. The prevertebral soft tissues, dens and lateral masses are within normal limits. Mild loss of intervertebral disc space height with associated endplate osteophyte formation at C5-6, C6-7. Remainder of the intervertebral disc space height appears within normal limits. Procedure Note Pavan Hicks, - 02/21/2024 For Patients: As a result of the Century Cures Act, medical imagingexams and procedure reports are released immediately into your electronicmedical record. You may view this report before your referring provider.If you have questions, please contact your health care provider. INDICATION: Neck pain. FINDINGS: Three views of the cervical spine are submitted. No comparison. The overall stature and alignment of the cervical spine is within normallimits. The prevertebral soft tissues, dens and lateral masses are withinnormal limits. Mild loss of intervertebral disc space height withassociated endplate osteophyte formation at C5-6, C6-7. Remainder of theintervertebral disc space height appears within normal limits. IMPRESSION: 1. No radiographic evidence of acute osseous injury. 2. Mild degenerative change at C5-6, C6-7 Dictated by Waldo Hicks MD @ 02/21/2024 5:31:50 PM (Electronically Signed) Atiya JARQUIN GENERAL IMAGING Final R esult * (ABNORMAL) LIPID PANEL W REFLEX MEASURED LDL (02/21/2024 4:02 PM CDT) CHOLESTEROL, TOTAL 233(H) <200 mg/dL [facility] HDL CHOLESTEROL 39(L) > OR = 40 mg/dL [facility] TRIGLYCERIDES 282(H) <150 mg/dL [facility] Comment: If a non-fasting specimen was collected, consider repeat triglyceride testing on a fasting specimen if clinically indicated. Zafar et al. J. of Clin. Lipidol. 2015;9:129-169. LDL-CHOLESTEROL 148(H) mg/dL (calc) [facility] Comment: Reference range: <100 Desirable range <100 mg/dL for primary prevention; <70 mg/dL for patients with CHD or diabetic patients with > or = 2 CHD risk factors. LDL-C is now calculated using the Saturnino calculation, which is a validated novel method providing better accuracy than the Friedewald equation in the estimation of LDL-C. Benjy DUMONT et al. ROEL. 2013;310(19): 3653-2931 (http://education.Biocartis/faq/ZNG554) CHOL/HDLC RATIO 6.0(H) <5.0 (calc) [facility] NON HDL CHOLESTEROL 194(H) <130 mg/dL (calc) [facility] Comment: For patients with diabetes plus 1 major ASCVD risk factor, treating to a non-HDL-C goal of <100 mg/dL (LDL-C of <70 mg/dL) is considered a therapeutic option. Blood BLOOD SPECIMEN / Unknown 02/21/2024 4:02 PM CDT 02/21/2024 4:02 PM CDT Atiya JARQUIN CHEMISTRY Final R esult [facility] [address] [place] [address], [facility] [address] [place] [address] * COMP METABOLIC PANEL (02/21/2024 4:02 PM CDT) Pathologist [facility] GLUCOSE 88 65 - 99 mg/dL [facility] Comment: Fasting reference interval UREA NITROGEN (BUN) 16 7 - 25 mg/dL [facility] CREATININE 0.73 0.70 - 1.35 mg/dL [facility] EGFR 102 > OR = 60 mL/min/1. 73m2 [facility] BUN/CREATININE RATIO SEE NOTE: 6 - 22 (calc) [facility] Comment: Not Reported: BUN and Creatinine are within reference range. SODIUM 137 135 - 146 mmol/L [facility] POTASSIUM 4.3 3.5 - 5.3 mmol/L [facility] CHLORIDE 103 98 - 110 mmol/L [facility] CARBON DIOXIDE 30 20 - 32 mmol/L [facility] CALCIUM 9.4 8.6 - 10.3 mg/dL [facility] PROTEIN, TOTAL 7.0 6.1 - 8.1 g/dL [facility] ALBUMIN 4.3 3.6 - 5.1 g/dL [facility] GLOBULIN 2.7 1.9 - 3.7 g/dL (calc) [facility] ALBUMIN/GLOBULIN RATIO 1.6 1.0 - 2.5 (calc) [facility] BILIRUBIN, TOTAL 0.6 0.2 - 1.2 mg/dL [facility] ALKALINE PHOSPHATASE 68 35 - 144 U/L [facility] AST 18 10 - 35 U/L [facility] ALT 17 9 - 46 U/L [facility] Blood BLOOD SPECIMEN / Unknown 02/21/2024 4:02 PM CDT 02/21/2024 4:02 PM CDT Atiya JARQUIN CHEMISTRY Final R esult [facility] [address] [place] [address], [facility] [address] * NE NJX DX/THER SBST INTRLMNR LMBR/SAC W/IMG GDN (01/28/2024 12:00 AM CDT) Isma Colón MD PB - NERVOUS SYSTEM SERVIC ES Final Result * ECHO TTE COMPLETE WO CONTRAST (01/21/2024 3:08 PM CDT) AORTIC VALVE MEAN PG 7 mmHg EJECTION FRACTION 64 % PEAK TR VELOCITY 2.5 m/s LVEDD 4.6 cm Anatomical Region Laterality Modality Ultrasound 01/21/2024 2:13 PM CDT Narrative 01/21/2024 3:57 PM CDT ECHOCARDIOGRAM MANNY ORTIZ : 1960 63 years Study Date: 01/21/2024 2:13:35 PM Gender: M BP: 121/82 mmHg Height: 175.00 cm BSA: 2.36 m Weight: 124.00 kg Tech: ANGELO Referring MD: ALBERTO HALL Site: [facility] Reading Location: Mobile OP Patient [...] Valve: Vmax 1.8 m/s BRADFORD (V) 3.12 cm VTI 0.34 m BRADFORD (I) 3.09 cm LVOT V max 1.3 m/s Max PG 12 mmHg LVOT VTI 0.25 m Mean PG 7 mmHg SV 105 ml Dim Index 0.73 SV index 45 ml/m CO 7.6 l/min CI 3.2 l/min/m Mitral Valve: MVA 4.4 cm MV P 1/2 50 msec MV Mean G 2 mmHg MV VTI 0.23 m Tricuspid Valve and estimated PA pressures: TR Vmax 2.5 m/s TR maxG 25 mmHg . This study was interpreted by an [facility] accredited facility. Final Procedure Note Mukesh Mcclure MD - 01/21/2024 ECHOCARDIOGRAM AMNNY ORTIZ : 1960 63 years Study Date: 01/21/2024 2:13:35 PM Gender: M BP: 121/82 mmHg Height: 175.00 cm BSA: 2.36 m Weight: 124.00 kg Tech: MSR Referring MD: ALBERTO HALL Site: [facility] Reading Location: Mobile OP Patient [...] Valve: Vmax 1.8 m/s BRADFORD (V) 3.12 cm VTI 0.34 m BRADFORD (I) 3.09 cm LVOT V max 1.3 m/s Max PG 12 mmHg LVOT VTI 0.25 m Mean PG 7 mmHg SV 105 ml Dim Index 0.73 SV index 45 ml/m CO 7.6 l/min CI 3.2 l/min/m Mitral Valve: MVA 4.4 cm MV P 1/2 50 msec MV Mean G 2 mmHg MV VTI 0.23 m Tricuspid Valve and estimated PA pressures: TR Vmax 2.5 m/s TR maxG 25 mmHg . This study was interpreted by an [facility] accredited facility. Final us Alberto Hall MD ECHO ORD Final Result * COLONOSCOPY (02/13/2022 11:30 AM CDT) 02/13/2022 [...] adequate candidate for conscious sedation. The endoscope -[id number] was passed through the anus andadvanced to [...] 11:30 AM Procedure Code(s): --- Professional --- 44535, Colonoscopy, flexible; diagnostic, including collection of specimen(s) bybrushing or washing, when performed (separateprocedure) Diagnosis Code(s): --- Professional --- Z86.010, Personal history of colonicpolyps CPT copyright 2020 [employer]. All rights reserved. The codes documented in this report are preliminary and upon parcel post clerk reviewmay be revised to meet current compliance requirements. Scope In: 11:54:28 AM Scope Withdrawal Time 0 hours 8 minutes 14 seconds Scope Out: 12:06:37 PM Benjy Ford MD PROCEDURE ORD Final Res ult from Last 3 Months or Most Recently Relevant to Health Maintenance Insurance [facility] [facility] Advance Directives * Full Code (Latest Code Status on File) Date Activated Date Inactivated Comments 04/08/2020 12:39 PM 04/08/2020 7:00 PM Question Answer Comments Code Status Discussion: Discussed * Full Code Date Activated Date Inactivated Comments 12/18/2013 1:53 PM 12/20/2013 3:24 PM Care Teams Fleet Technician Relationship Specialty Start Date End Date Atiya Lewis PA [address] [place] [address] PCP - General Family Practice 06/20/13 Pamela Murrell, RN [address] [address] Registered Nurse 12/08/13 Luciano Ni MBBS [address] [place] [id number] Surgery - Urology 12/08/13 Issa Goodwin MD [address] [place] [id number] Urology Surgery - Urology 03/15/19
--- OUTSIDE RECORDS SUMMARY | 2024-04-17 21:09 | XMS_ITS | Encounter Summary ---
Author Organization [facility] Address [address] [place] [address] Care Team Providers Care Opinion Polls Survey Worker Name Role Phone Elsewhere, Pcp Primary Care Provider Unavailabl e Reason for Visit * Reason Onset Date Comments Pre-visit Intake 02/10/2024 Encounter Details Date Type Department Care Team (Latest Contact Info) Description 02/10/2024 10:30 AM CDT Clinical Communication Virtual Review in [place], [place] [address] [place] [address] Pre-visit Intake Social History Tobacco Use Types Packs/Day Years Used Date Smoking Tobacco: Never Smokeless Tobacco: Former Chew Quit: 2013 Tobacco Cessation:Counseling Given: Not Answered Alcohol Use Standard Drinks/Week Comments Not Currently 21 (1 standard drink = 0.6 oz pu re alcohol) [facility] Utilities Answer Date Recorded In the past 12 months has e [employer], gas, oil, or water company threatened to shut off services in your [...] often do you attend chur ch or protestant services? Never 11/01/2019 Do you belong to [...] and heating? Not hard at all 11/01/2019 [facility] [place] [facility] Occupat [facility] - Occupational Stress [...] money to buy more. 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
== END 2024-04-17 21:06 | disposition home or self-care (01) ==
LOC: SLEEP 21:06
PROVIDERS: PCP Physician Assistant Medical; Visit Provider Internal Medicine
DX: G47.33 Obstructive sleep apnea (adult) (pediatric) (principal)
CPT/HCPCS: 95811

== ENCOUNTER 2024-05-11 14:10 | Outpatient (CLI) | payer BC, SELFPAY ==
[2024-05-11 15:53] LABS: PSA Diagnostic* < 0.06 ng/mL (0.10-4.00)
[2024-05-13 23:18] LABS: Testosterone, Adult Male 177 ng/dL (300-720)
== END 2024-05-11 14:11 | disposition home or self-care (01) ==
LOC: LAB 14:13
PROVIDERS: PCP Physician Assistant Medical; Visit Provider Physician Assistant
DX: R97.21 Rising PSA following treatment for malignant neoplasm of prostate (principal)
CPT/HCPCS: 36415; 84153; 84403